=== PATIENT | male | born 1945 | race Caucasian/White ===

== ENCOUNTER 2016-05-13 20:08 | Inpatient (IN) | payer MEDICARE, MEDICAID ==
[2016-05-13] MEDS ORDERED: Sodium Chloride 0.9% 1,000 ML IV ONE (20:54)
--- NOTE | 2016-05-13 21:06 | ED Physician Chart ---
Chief Complaint/HPI - Patient Information Date Seen:: 05/13/16 Time Seen:: 20:45 Chief Complaint:: Abnormal BUN/creat = 65/1.8 History of Present Illness:: Pt. sent in by Dr. Jayesh wilkinson for dehydration with abnl. labs. BUN/creat = 65/1.8. Similar values on 2015, BUN/creat = 64/1.7 Allergies:: Allergies Allergy/AdvReac Type Severity Reaction Status Date / Time No Known Allergies Allergy Verified 01/28/16 15:45 Vitals:: Vital Signs - 8 hr 05/13/16 20:15 Temp 97.6 F HR 84 RR 18 BP 119/70 O2 Sat % 95 Historian:: EMS, Medical Records Review of Systems - Review of Systems General/Constitutional: No fever, No chills Skin: Skin lesions Head: No headache Eyes: No loss of vision, No pain Neck: No neck pain Cardio Vascular: No chest pain, No palpitations Pulmonary: No SOB, No cough GI: No nausea, No vomiting, No diarrhea G/U: No dysuria Psychiatric: No anxiety Neurological: No syncope, No focal symptoms, No vertigo Past Medical History - Past Medical History Past Medical History: HTN, DM, Asthma/COPD, Dementia, Other ("AKF" apparently, "Acute Kidney Failure") Family History: None Social History: Non Smoker, No Alcohol Surgical History: None Psychiatricy History: Dementia Family Medical History - Family Member Mother History Unknown: Yes Ethnicity: Physical Exam - Physical Examination General/Constitutional: Awake, Well-developed, well-nourished, No distress Head: Atraumatic Eyes: Lids, conjuctiva normal, PERRL, EOMI Skin: No rash ENMT: External ears, nose nl, TM canals nl, Lips, teeth, gums nl, Oropharynx nl Neck: Nontender, Full ROM w/o pain Respiratory: Nl effort/Exclusion, Clear to Auscultation, No Wheeze/Rhonchi/Rales Cardio Vascular: RRR, No murmur, gallop, rubs GI: No tenderness/rebounding/guarding : No CVA tenderness Extremities: No tenderness or effusion, Full ROM Neuro/Psych: Normal motor strength, No focal deficits Labs/Radiology/EKG Results - Lab Results Results: CXR borderline cardiomeg. ? infiltrate L base, L CPA EKG: NSR at 80 with L axis and LVH. Old inf. Q's. WBC 6.9, H/H = 11..2/33.1 BUN/creat 70/1.9, Gluc. 185. CPK nl EtOH nlAmmonia nl PT and PTT normal ED Septic Shock - . Is Septic Shock (SBP<90, OR Lactate>4 mmol\\L) present?: No - <6hrs of presentation: Vital Signs: Vital Signs - 8 hr 05/13/16 20:15 Temp 97.6 F HR 84 RR 18 BP 119/70 O2 Sat % 95 Reassessment (Disposition) - Reassessment Reassessment Condition:: Improved - Diagnosis Diagnosis:: Dx: Acute dehydration and renal failure 2. Possible LLL pneumonia. - Patient Disposition Accepting Physician:: Dr. Mcconnell Time Called:: 2214 Time Responded:: 22:34 Discussion with Medical Provider:: Discussed with Dr. Mcconnell. He is admitting and giving orders. Condition at Disposition:: Improved ED Discharge Plan - Patient Disposition Admit/Discharge/Transfer: Acute Care w/in this hosp Condition at Disposition: Guarded
[2016-05-13] MEDS ORDERED: cefTRIAXone 1 GM in Sodium Chloride 0.9% 50 ML IV ONE (21:08)
[2016-05-13 21:24] LABS: % BASOPHILS 0.7 % (0.0-2.0); % EOSINOPHILS 3.1 % (0.0-5.0); % LYMPHOCYTES 21.2 % (20.0-50.0); % MONOCYTES 7.5 % (2.0-10.0); % NEUTROPHILS 67.5 % (40.0-80.0); MEAN CELL VOLUME 96.8 fl (80-99); MEAN CORPUSCULAR HEMOGLOBIN 32.7 pg (27.0-31.0); MEAN CORPUSCULAR HGB CONC 33.8 pg (28.0-36.0); MEAN PLATELET VOLUME 10.5 fl; NEUTROPHILE ABSOLUTE 4.7 Th/cmm (1.8-8.0); RED BLOOD COUNT 3.42 Mil/cmm (3.80-5.80); RED CELL DISTRIBUTION WIDTH 15.3 % (11.5-20.0); WHITE BLOOD COUNT 6.9 Th/cmm (4.8-10.8)
[2016-05-13 21:31] LABS: HEMATOCRIT 33.1 % (39.0-49.0); HEMOGLOBIN 11.2 gm/dL (12.6-17.4)
[2016-05-13 21:32] LABS: PLATELET COUNT 106 Th/cmm (150-400)
[2016-05-13 21:34] LABS: INR 1.05 (0.5-1.4); PROTHROMBIN TIME (TEST) 10.4 SECONDS (9.5-11.5)
[2016-05-13 21:36] LABS: ALB/GLOB RATIO 0.7 (1.0-1.8); ALKALINE PHOSPHATASE 84 U/L (34-104); BILIRUBIN,TOTAL 0.3 mg/dL (0.3-1.0); BUN - UREA NITROGEN 70 mg/dL (7-25); BUN/CREATININE RATIO 36.8; CALCIUM SERUM 9.6 mg/dL (8.6-10.3); CARBON DIOXIDE 25.8 mEq/L (21.0-31.0); CHLORIDE 114 mEq/L (98-107); CREATININE - SERUM 1.9 mg/dL (0.7-1.3); GLUCOSE 185 mg/dL (70-105); POTASSIUM SERUM 4.8 mEq/L (3.5-5.1); SGOT 30 U/L (13-39); SGPT/ALT 27 U/L (7-52); SODIUM SERUM 144 mEq/L (136-145)
[2016-05-13 22:07] LABS: CREATINE KINASE MB 0.6 ng/mL (0.6-6.3)
[2016-05-13] MEDS ORDERED: Fleet Enema 135 mL RC PRN (23:18)
[2016-05-13] MEDS ORDERED: Magnesium Hydroxide (MOM) 30 mL UDC GT PRN (23:18)
[2016-05-13] MEDS ORDERED: DARBEPOETIN ALFA IN POLYSORBAT 25 MCG SQ SCH (23:30)
[2016-05-13 23:54] LABS: URINE BILIRUBIN NEGATIVE (NEGATIVE); URINE BLOOD NEGATIVE (NEGATIVE); URINE COLOR YELLOW; URINE GLUCOSE (UA) NEGATIVE (NEGATIVE); URINE KETONE NEGATIVE (NEGATIVE); URINE PH 5.5; URINE PROTEIN 100 mg/dL (NEGATIVE)
[2016-05-13 23:55] LABS: URINE UROBILINOGEN 0.2 E.U./dL (0.2 - 1.0)
[2016-05-13 23:57] LABS: URINE BACTERIA MODERATE /hpf (NONE SEEN); URINE EPITHELIAL CELLS MODERATE /lpf (FEW)
[2016-05-13 23:58] LABS: AMPHETAMINE URINE NEGATIVE (NEGATIVE); BARBITURATES URINE NEGATIVE (NEGATIVE)
--- NOTE | 2016-05-13 23:59 | Admit Criteria Form ---
Admit Criteria Forms - Admit Criteria Diagnosis: DEHYDRATION Clinical Indications for Admission to Inpatient Care (Place 'X' for any and all applicable criteria): Admission is indicated for ANY ONE of the following (1)(2)(3)(4)(5): [ X]I. Inpatient admission required rather than observation care (see Dehydration: Observation Care guideline as appropriate) because of ANY ONE of the following: [ ]a) Vomiting that is severe or persistent [ ]b) Severe electrolyte abnormalities requiring inpatient care [ ]c) Hemodynamic instability [ ]d) IV fluid to replace significant ongoing losses (greater than 3 L/m2 per day (10) (11) [ ]e) Parenteral nutrition regimen that must be implemented on inpatient basis [X ]f) Other condition,treatment or monitoring requiring inpatient admission [ ]II. Serious cause for dehydration requiring acute hospitalization (eg, bowel obstruction, increased intracranial pressure, infectious cause) Extended stay beyond goal length of stay may be needed for(1)(3 )(4)(17): [ ]a) Chronic severe dehydration [ ]b) Persistent vital sign changes, severe electrolyte imbalance, or diagnosed cause of dehydration that requires continued hospitalization (eg, bowel obstruction, increased intracranial pressure) [ ]c) Older patients (65 years or older) [ ]d) Severe comorbid illness (eg, renal failure, heart failure, poorly controlled diabetes) The original [employer] content created by [employer] has been revised. The portions of the content which have been revised are identified through the use of italic text or in bold, and [facility] has neither reviewed nor approved the modified material. All other unmodified content is copyright [email or web address]. Please see references footnoted in the original [email or web address] edition 2016 Admit Criteria Met?: Yes
[2016-05-14] MEDS: D5-0.45NS 1,000 ML IV SCH ×3 (00:57→15:09)
[2016-05-14] MEDS: Lactulose 10 Gm/15 mL 30mL UDC GT SCH ×2 (06:29→13:30)
[2016-05-14] MEDS: Pantoprazole 40 mg/Packet GT SCH (06:30)
[2016-05-14] MEDS: INSULIN ASPART SLIDING SCALE 100 UNITS/ML UNIT SUBQ SCH ×4 (06:36→21:50)
[2016-05-14 07:35] LABS: ALB/GLOB RATIO 0.7 (1.0-1.8); ANION GAP 11.4 (7.0-16.0); BUN/CREATININE RATIO 35.9; CALCIUM SERUM 9.4 mg/dL (8.6-10.3); CARBON DIOXIDE 23.3 mEq/L (21.0-31.0); CREATININE - SERUM 1.7 mg/dL (0.7-1.3); POTASSIUM SERUM 4.7 mEq/L (3.5-5.1)
[2016-05-14 07:36] LABS: BILIRUBIN,TOTAL 0.3 mg/dL (0.3-1.0)
[2016-05-14] MEDS: Ferrous Sulfate 300 MG/5 ML UDC GT SCH (08:28)
[2016-05-14] MEDS: Levetiracetam 500 mg/5mL 5mL UDC GT SCH ×2 (08:28→21:38)
[2016-05-14] MEDS: Multivitamin w/ Minerals 15 mL UDC GT SCH (08:28)
[2016-05-14] MEDS: Insulin Detemir 100 units/mL 10mL Vial SUBQ SCH ×2 (09:00→22:32)
[2016-05-14 09:06] LABS: % BASOPHILS 0.1 % (0.0-2.0); % EOSINOPHILS 5.2 % (0.0-5.0); % LYMPHOCYTES 18.9 % (20.0-50.0); % MONOCYTES 7.6 % (2.0-10.0); % NEUTROPHILS 68.2 % (40.0-80.0); HEMATOCRIT 35.6 % (39.0-49.0); HEMOGLOBIN 11.7 gm/dL (12.6-17.4); MEAN CELL VOLUME 97.8 fl (80-99); MEAN CORPUSCULAR HGB CONC 32.7 pg (28.0-36.0); MEAN PLATELET VOLUME 10.5 fl; NEUTROPHILE ABSOLUTE 3.5 Th/cmm (1.8-8.0); PLATELET COUNT 105 Th/cmm (150-400); RED BLOOD COUNT 3.64 Mil/cmm (3.80-5.80); RED CELL DISTRIBUTION WIDTH 15.3 % (11.5-20.0)
[2016-05-14 09:17] LABS: WHITE BLOOD COUNT 5.2 Th/cmm (4.8-10.8)
--- NOTE | 2016-05-14 11:28 | Diagnostic Imaging Report ---
Portable chest x-ray History: Cough Allowing for portable technique the heart size is normal. There is accentuation of the interstitial markings in the left lower lobe probably related to poor inspiration. Subtle infiltrate is difficult to exclude. Clinical correlation is needed. IMPRESSION: 1. Accentuation of interstitial markings within the left lower lobe that may be related to poor inspiration. Early infiltrate is difficult to exclude. Clinical correlation is needed.
[2016-05-15] MEDS: D5-0.45NS 1,000 ML IV SCH ×2 (01:22→17:20)
[2016-05-15] MEDS: Lactulose 10 Gm/15 mL 30mL UDC GT SCH ×4 (01:25→22:41)
--- NOTE | 2016-05-15 05:23 | History & Physical ---
I was called on medical records to do the H and P today. CHIEF COMPLAINT: Abnormal labs reveal BUN of 65 and creatinine of 1.8. HISTORY OF PRESENT ILLNESS: The patient is a 70-year-old male with past medical history of diabetes mellitus type 2 and hypertension, was sent by Dr. Mcconnell, the primary care physician, for abnormal labs including BUN of 65 and creatinine of 1.8. On initial evaluation, the patient's vitals were stable. The patient was admitted for further evaluation and management, the reason the consultation was called. PAST MEDICAL HISTORY: Diabetes mellitus type 2, hypertension, anemia of chronic disease, peripheral vascular disease, BPH, and cachexia. ALLERGIES: NKDA. MEDICATIONS: See medication reconciliation sheet. PAST SURGICAL HISTORY: PEG placement. SOCIAL HISTORY: The patient lives at nursing facility. FAMILY HISTORY: Unknown. REVIEW OF SYSTEMS: GENERAL: The patient has no fever and no chills. He has generalized weakness. HEENT: No diplopia, no photophobia, and no sore throat. RESPIRATORY: No cough and no shortness of breath. CARDIOVASCULAR: No chest pain and no palpitation. GASTROINTESTINAL: No nausea, no vomiting, no diarrhea, and no constipation. GENITOURINARY: No dysuria. NEUROLOGICAL: No headache, no dizziness, and no focal weakness. PHYSICAL EXAMINATION: VITAL SIGNS: Current vital signs show temperature is 97.8, pulse 80, respirations 18, and blood pressure 122/86. GENERAL: The patient is comfortable lying in the bed, not in acute distress. HEENT: Head is normocephalic and atraumatic. Oral cavity moist, pink tongue. NECK: Supple. No JVD. No carotid bruit. Trachea in midline. CHEST: Bilateral vesicular sound, decreased breath sound. HEART: S1 and S2 within normal limits. Regular rhythm. No murmur and no gallop. ABDOMEN: Soft, nontender, and nondistended. Bowel sounds present. EXTREMITIES: No cyanosis, no clubbing, and no edema. Discoloration of both lower legs, foot area. NEUROLOGIC: Alert and awake, confused. LABORATORY DATA: Current lab shows WBC count is 5200, hemoglobin 11.7, hematocrit is 35.6, platelets are 105,000, and neutrophil is 68.2%. Sodium is 144, potassium 4.7, chloride 114, bicarbonate is 23.3, BUN is 61, creatinine 1.7, and glucose is 241. IMPRESSION: 1. Acute kidney injury on chronic kidney disease. 2. Urinary tract infection with candiduria. 3. Bilateral pneumonia, health care facility associated pneumonia, as the patient has chest x-ray showing bilaterally infiltrates. 4. Diabetes mellitus type 2. 5. Hypertension. 6. Peripheral vascular disease. 7. Anemia of chronic disease. 8. Benign prostatic hypertrophy. 9. Cachexia. Requiring continuing Rocephin and Diflucan. Continue IV fluid support. Continue same medications from the nursing facility. Dr. Mcconnell will takeover the case tomorrow. Discuss with Dr. Mcconnell and medical records. JOB# [id number] CHERY
--- NOTE | 2016-05-15 05:56 | Consultation ---
ATTENDING PHYSICIAN: Abhi Mcconnell MD. REASON FOR CONSULTATION: Worsening kidney function, electrolyte imbalance and fluid management. HISTORY OF PRESENT ILLNESS: This is a 70-year-old male with past medical history of chronic kidney disease who was brought to the Emergency Room because of persistently lab abnormalities. Two weeks prior to admission, the patient had labs drawn, which revealed BUN/creatinine of 64/1.74. He continued to receive his usual G-tube feedings. Few hours prior to admission, F staff reported abnormal labs. He was then brought to the Emergency Room. His BUN/creatinine were 70/1.9. Chest x-ray showed possible early left lower lobe infiltrate. White count was 6.9. He denied any history of nausea and vomiting as well as diarrhea. He admitted to [facility]. PAST MEDICAL HISTORY: 1. Chronic kidney disease. 2. Type 2 diabetes mellitus. 3. Essential hypertension. 4. Peptic ulcer disease. 5. Anemia of chronic disease. 6. BPH. PAST SURGICAL HISTORY: Status post PEG placement. CURRENT MEDICATIONS: He is currently on Aranesp, acetaminophen, ascorbic acid, bisacodyl, doxazosin, ferrous sulfate, Neurontin, detemir, lactulose, levetiracetam, magnesium hydroxide, ____, sodium chloride, pantoprazole, ceftriaxone and sennosides. ALLERGIES: No known drug allergies. SOCIAL AND FAMILY HISTORY: I was not able to obtain directly from the patient because he remains nonverbal at the present time. REVIEW OF SYSTEMS: Again, I was not able to decipher directly from the patient. As per transfer notes. The patient has a gastrostomy tube feeding, no fever and no chills. HEENT: No mention of any headaches nor dizziness. CARDIORESPIRATORY: No shortness of breath, chest pain, palpitations, diaphoresis or cough. GASTROINTESTINAL: There was no nausea and vomiting, abdominal pain or cramping, hematemesis, melena or hematochezia and no diarrhea. ENDOCRINE: History of diabetes. No thyroid abnormalities. No dyslipidemia. MUSCULOSKELETAL: Multiple joint arthralgias. GENITOURINARY: History of chronic kidney disease with acute kidney injury. Possible bacteria/yeast complicated UTI. HEMATOLOGIC: He has a history of anemia and currently on erythropoiesis-stimulating agents. NEUROPSYCHIATRIC: No syncopal episode nor seizure activity. PHYSICAL EXAMINATION: GENERAL: The patient is arousable. He is not in any form of distress. VITAL SIGNS: His blood pressure is 135/80, pulse is 99 and temperature 98.6 degrees. SKIN: Poor turgor, warm. No rash and no jaundice appreciated. HEENT: Head normocephalic and atraumatic. Eyes: Extraocular muscles intact. Pupils equal, round and reactive to light and accommodates, anicteric sclerae, pink conjunctivae. Nose: Midline nasal septum. Mouth: Dry mucosa with adequate dentition. NECK: Supple. No adenopathy, no thyromegaly and no bruits. Trachea palpated in the midline. CHEST AND CVS: S1 and S2. No rub, murmur nor gallop appreciated. Point of maximal impulse fifth intercostal space, left midclavicular line. No abdominal or femoral bruits appreciated. LUNGS: Equal expansion. No use of accessory muscles. No supraclavicular retractions, decreased breath sounds, clear to auscultation without any wheeze. ABDOMEN: Mildly globular, soft. Positive for bowel sounds. No bruits either diastolic or systolic. RECTAL: Lax sphincter tone. GENITOURINARY: Normal appearing male genitalia. MUSCULOSKELETAL: No effusions present in his joints, but unable to assess his range of motion. EXTREMITIES: No evidence of edema, cyanosis nor clubbing with palpable femoral, popliteal and dorsalis pedis pulses. NEUROLOGIC: The patient is arousable; however, unable to continue with my neuro exam due to his depressed mental status. He is able to move his extremities voluntarily. LABORATORY DATA: Sodium 144, potassium 4.7, chloride 111, bicarbonate 23, BUN 61, creatinine 1.7 and glucose 241. White count 5.2, hemoglobin 11.7, hematocrit 35.6, polys 68.2% and platelets 105. Troponin 0.01, calcium 9.4. BNP 62, albumin 3.4. Urinalysis revealed yeast/bacteria, wbc's of 10-25 with rbc's of 2-5. IMPRESSION: 1. Acute kidney injury on chronic kidney disease MDRD GFR 51 mL per minute, stage 3. The patient's chronic kidney disease is secondary to longstanding history of diabetes ____ to diabetic neuropathy. He may have underlying hypertensive nephrosclerosis due to his history of hypertension. 2. Acute kidney injury is likely due to prerenal azotemia. He is currently on the feeding as well as water flushes, but this may not be enough to replenish his sensible and insensible fluid losses. Physical examination showed poor skin turgor and dry oral mucosa. These are all suggestive of underlying dehydration, which could give rise to a decrease ____ circulating volume. His prerenal azotemia progressed to acute tubular injury. He also has ongoing bacterial/yeast urine infection which may develop into acute interstitial nephritis. 3. New left lower lobe healthcare-acquired pneumonia. 4. Bacterial/yeast complicated UTI. 5. Type 2 diabetes mellitus with CKD. 6. Essential hypertension with CKD. 7. Peptic ulcer disease. 8. Anemia of chronic kidney disease. 9. BPH. 10. Malnutrition. 11. Functional quadriplegia. PLAN: 1. Agree with IV fluids. 2. Follow up urine C and S. 3. Blood culture x 2. 4. Renal ultrasound. 5. Urinary sodium, eosinophils and creatinine. 6. Urine microalbumin to creatinine ratio. 7. Follow up electrolytes and repeat chest x-ray. 8. Discontinue Epogen because hemoglobin remains stable. 9. Start patient on Diflucan. Thank you Dr. Mcconnell for this consult. I will follow the patient closely with you. JOB# [id number]
[2016-05-15] MEDS: Pantoprazole 40 mg/Packet GT SCH (06:06)
[2016-05-15] MEDS: INSULIN ASPART SLIDING SCALE 100 UNITS/ML UNIT SUBQ SCH ×4 (06:41→22:35)
[2016-05-15 07:07] LABS: % BASOPHILS 0.1 % (0.0-2.0); % EOSINOPHILS 7.3 % (0.0-5.0); % LYMPHOCYTES 33.4 % (20.0-50.0); % MONOCYTES 7.8 % (2.0-10.0); % NEUTROPHILS 51.4 % (40.0-80.0); HEMATOCRIT 32.2 % (39.0-49.0); HEMOGLOBIN 11.1 gm/dL (12.6-17.4); MEAN CELL VOLUME 96.2 fl (80-99); MEAN CORPUSCULAR HGB CONC 34.3 pg (28.0-36.0); MEAN PLATELET VOLUME 9.9 fl; NEUTROPHILE ABSOLUTE 2.9 Th/cmm (1.8-8.0); PLATELET COUNT 98 Th/cmm (150-400); RED BLOOD COUNT 3.35 Mil/cmm (3.80-5.80); RED CELL DISTRIBUTION WIDTH 15.2 % (11.5-20.0); WHITE BLOOD COUNT 5.6 Th/cmm (4.8-10.8)
[2016-05-15 07:32] LABS: ANION GAP 8.7 (7.0-16.0); BUN - UREA NITROGEN 39 mg/dL (7-25); CALCIUM SERUM 8.9 mg/dL (8.6-10.3); CARBON DIOXIDE 22.6 mEq/L (21.0-31.0); CHLORIDE 116 mEq/L (98-107); CREATININE - SERUM 1.3 mg/dL (0.7-1.3); GLUCOSE 165 mg/dL (70-105); MAGNESIUM 2.3 mg/dL (1.9-2.7); PHOSPHOROUS 3.7 mg/dL (2.5-5.0); POTASSIUM SERUM 4.3 mEq/L (3.5-5.1); SODIUM SERUM 143 mEq/L (136-145); URIC ACID 12.2 mg/dL (4.4-7.6)
[2016-05-15] MEDS ORDERED: Epoetin Alfa 20000 Units/mL Vial SUBQ SCH (09:00)
[2016-05-15] MEDS: Levetiracetam 500 mg/5mL 5mL UDC GT SCH ×2 (09:44→22:32)
[2016-05-15] MEDS: Ferrous Sulfate 300 MG/5 ML UDC GT SCH (09:44)
[2016-05-15] MEDS: Insulin Detemir 100 units/mL 10mL Vial SUBQ SCH ×2 (09:45→22:38)
[2016-05-15] MEDS: Multivitamin w/ Minerals 15 mL UDC GT SCH (10:00)
[2016-05-15 12:13] LABS: MICROALBUMIN RANDOM RUINE 566.8 ug/mL (Not Estab.)
--- NOTE | 2016-05-15 13:24 | General Progress Note ---
Subjective - Review of Systems Service Date: 05/15/16 Subjective: more awake, comfortable Objective - Results Result Diagrams: 05/15/16 05:55 05/15/16 05:55 Recent Labs: Laboratory Last Values WBC 5.6 Th/cmm (4.8-10.8) 05/15/16 05:55 RBC 3.35 Mil/cmm (3.80-5.80) L 05/15/16 05:55 Hgb 11.1 gm/dL (12.6-17.4) L 05/15/16 05:55 Hct 32.2 % (39.0-49.0) L 05/15/16 05:55 MCV 96.2 fl (80-99) 05/15/16 05:55 MCH 33.0 pg (27.0-31.0) H 05/15/16 05:55 MCHC Differential 34.3 pg (28.0-36.0) 05/15/16 05:55 RDW 15.2 % (11.5-20.0) 05/15/16 05:55 Plt Count 98 Th/cmm (150-400) L 05/15/16 05:55 MPV 9.9 fl 05/15/16 05:55 Neutrophils % 51.4 % (40.0-80.0) 05/15/16 05:55 Lymphocytes % 33.4 % (20.0-50.0) 05/15/16 05:55 Monocytes % 7.8 % (2.0-10.0) 05/15/16 05:55 Eosinophils % 7.3 % (0.0-5.0) H 05/15/16 05:55 Basophils % 0.1 % (0.0-2.0) 05/15/16 05:55 PT 10.4 SECONDS (9.5-11.5) 05/13/16 21:10 INR 1.05 (0.5-1.4) 05/13/16 21:10 PTT (Actin FS) 26.1 SECONDS (26.0-38.0) 05/13/16 21:10 Sodium 143 mEq/L (136-145) 05/15/16 05:55 Potassium 4.3 mEq/L (3.5-5.1) 05/15/16 05:55 Chloride 116 mEq/L (98-107) H 05/15/16 05:55 Carbon Dioxide 22.6 mEq/L (21.0-31.0) 05/15/16 05:55 Anion Gap 8.7 (7.0-16.0) 05/15/16 05:55 BUN 39 mg/dL (7-25) H 05/15/16 05:55 Creatinine 1.3 mg/dL (0.7-1.3) 05/15/16 05:55 Est GFR ( Amer) > 60.0 ml/min 05/15/16 05:55 Est GFR (Non-Af Amer) 58.2 ml/min 05/15/16 05:55 BUN/Creatinine Ratio 30.0 05/15/16 05:55 Glucose 165 mg/dL (70-105) H 05/15/16 05:55 POC Glucose 136 MG/DL (70 - 105) H 05/15/16 12:30 Hemoglobin A1c % 5.8 % (4.0-6.0) 05/13/16 20:10 Uric Acid 12.2 mg/dL (4.4-7.6) H 05/15/16 05:55 Calcium 8.9 mg/dL (8.6-10.3) 05/15/16 05:55 Phosphorus 3.7 mg/dL (2.5-5.0) 05/15/16 05:55 Magnesium 2.3 mg/dL (1.9-2.7) 05/15/16 05:55 Total Bilirubin 0.3 mg/dL (0.3-1.0) 05/14/16 06:40 AST 30 U/L (13-39) 05/14/16 06:40 ALT 25 U/L (7-52) 05/14/16 06:40 Alkaline Phosphatase 76 U/L (34-104) 05/14/16 06:40 Ammonia 50 umol/L (16-53) 05/13/16 21:10 Creatine Kinase 31 U/L (30-223) 05/13/16 21:10 CK-MB (CK-2) 0.6 ng/mL (0.6-6.3) 05/13/16 21:10 Troponin I 0.03 ng/mL (0.01-0.05) 05/13/16 21:10 B-Natriuretic Peptide 62.0 pg/mL (5.0-100.0) 05/13/16 21:10 Total Protein 8.0 gm/dL (6.0-8.3) 05/14/16 06:40 Albumin 3.4 gm/dL (4.2-5.5) L 05/14/16 06:40 Globulin 4.6 gm/dL 05/14/16 06:40 Albumin/Globulin Ratio 0.7 (1.0-1.8) L 05/14/16 06:40 Urine Source CLEAN C 05/13/16 21:30 Urine Color YELLOW 05/13/16 21:30 Urine Clarity HAZY (CLEAR) 05/13/16 21:30 Urine pH 5.5 05/13/16 21:30 Ur Specific [place] 1.015 (1.005-1.030) 05/13/16 21:30 Urine Protein 100 mg/dL (NEGATIVE) H 05/13/16 21:30 Urine Glucose (UA) NEGATIVE mg/dL (NEGATIVE) 05/13/16 21:30 Urine Ketones NEGATIVE mg/dL (NEGATIVE) 05/13/16 21:30 Urine Blood NEGATIVE (NEGATIVE) 05/13/16 21:30 Urine Nitrate NEGATIVE (NEGATIVE) 05/13/16 21:30 Urine Bilirubin NEGATIVE (NEGATIVE) 05/13/16 21:30 Urine Urobilinogen 0.2 E.U./dL (0.2 - 1.0) 05/13/16 21:30 Ur Leukocyte Esterase TRACE (NEGATIVE) H 05/13/16 21:30 Urine RBC 2-5 /hpf (0-5) H 05/13/16 21:30 Urine WBC 10-25 /hpf (0-5) H 05/13/16 21:30 Ur Epithelial Cells MODERATE /lpf (FEW) 05/13/16 21:30 Urine Bacteria MODERATE /hpf (NONE SEEN) 05/13/16 21:30 Urine Yeast MODERATE /hpf (NONE SEEN) H 05/13/16 21:30 Ur Random Sodium 67 mmol/L 05/15/16 03:13 Urine Creatinine 63.0 mg/dl (39.0-259.0) 05/15/16 03:13 Urine Microalbumin 566.8 ug/mL (Not Estab.) 05/13/16 21:30 Microalb/Creat Ratio 613.4 mg/g creat (0.0-30.0) H 05/13/16 21:30 Urine Opiates Screen NEGATIVE (NEGATIVE) 05/13/16 21:30 Ur Barbiturates Screen NEGATIVE (NEGATIVE) 05/13/16 21:30 Ur Phencyclidine Scrn NEGATIVE (NEGATIVE) 05/13/16 21:30 Amphetamines Screen NEGATIVE (NEGATIVE) 05/13/16 21:30 U Methamphetamines Scrn NEGATIVE (NEGATIVE) 05/13/16 21:30 U Benzodiazepines Scrn NEGATIVE (NEGATIVE) 05/13/16 21:30 U Cocaine Metab Screen NEGATIVE (NEGATIVE) 05/13/16 21:30 U Cannabinoids Screen NEGATIVE (NEGATIVE) 05/13/16 21:30 Ethyl Alcohol < 10 mg/dL (0-10) 05/13/16 21:10 - Physical Exam Vitals and I&O: Vital Signs Temp 98.3 F 05/15/16 04:00 Pulse 75 05/15/16 04:00 Resp 18 05/15/16 04:00 BP 119/50 05/15/16 04:00 Pulse Ox 99 05/15/16 04:00 Intake & Output 05/14/16 05/15/16 05/15/16 18:59 06:59 18:59 Intake Total 3197.5 1440 Output Total 350 Balance 2847.5 1440 Intake: Intake, IV Amount 1952.5 1000 D5-0.45NS 1,000 ml @ 150 1952.5 1000 mls/hr IV .Q6H40M [facility] Rx# :[id number] Oral 300 Tube Feeding 715 440 Other 230 Output: Urine 350 Other: # Voids 5 4 # Bowel Movements 3 1 Stool Characteristics Soft Active Medications: Current Medications Acetaminophen (Tylenol 650mg/20.3ml Suspension) 500 mg GT Q4HR PRN PRN Reason: Pain (Severe) Stop: 07/12/16 23:17 Ascorbic Acid (Vitamin C) 500 mg GT DAILY [facility] Stop: 07/13/16 08:59 Last Admin: 05/15/16 09:43 Dose: 500 mg Bisacodyl (Dulcolax 10 Mg Supp) 10 mg RC DAILY PRN PRN Reason: Constipation Stop: 07/12/16 23:17 Doxazosin Mesylate (Cardura) 5 mg GT DAILY [facility] Stop: 07/13/16 08:59 Last Admin: 05/15/16 09:43 Dose: 5 mg Ferrous Sulfate (Iron) 300 mg GT DAILY [facility] Stop: 07/13/16 08:59 Last Admin: 05/15/16 09:44 Dose: 300 mg Fluconazole (Diflucan) 100 mg PO DAILY [facility] Stop: 07/13/16 17:59 Last Admin: 05/15/16 09:44 Dose: 100 mg Gabapentin (Neurontin) 100 mg GT HS [facility] Stop: 07/13/16 20:59 Last Admin: 05/14/16 21:38 Dose: 100 mg Heparin Sodium (Porcine) (Heparin) 5,000 units SUBQ Q12HR [facility] Stop: 07/13/16 08:59 Last Admin: 05/15/16 09:44 Dose: 5,000 units Dextrose/Sodium Chloride (D5-0.45ns) 1,000 mls @ 75 mls/hr IV .[id number] [facility] Stop: 07/12/16 23:14 Insulin Aspart (Novolog Insulin Sliding Scale) 0 units SUBQ ACHS [facility] PRN Reason: Protocol Stop: 07/13/16 07:29 Last Admin: 05/15/16 12:31 Dose: Not Given Insulin Detemir (Levemir Insulin) 10 units SUBQ HS [facility] PRN Reason: Protocol Stop: 07/13/16 20:59 Last Admin: 05/14/16 22:32 Dose: 10 units Insulin Detemir (Levemir Insulin) 15 units SUBQ QAM [facility] PRN Reason: Protocol Stop: 07/13/16 08:59 Last Admin: 05/15/16 09:45 Dose: 15 unit Lactulose (Cephulac) 30 gm GT Q8HR [facility] Stop: 07/13/16 04:59 Last Admin: 05/15/16 05:30 Dose: 30 gm Levetiracetam (Keppra) 500 mg GT Q12HR [facility] Stop: 07/13/16 08:59 Last Admin: 05/15/16 09:44 Dose: 500 mg Magnesium Hydroxide (Milk Of Magnesia) 30 ml GT HS PRN PRN Reason: Constipation Stop: 07/12/16 23:17 Miscellaneous (Vancomycin Iv Per Pharmacy) 1 ea MC PRN PRN PRN Reason: PROTOCOL Stop: 07/14/16 13:17 Multivitamins/Minerals (Theragran M) 5 ml GT DAILY [facility] Stop: 07/13/16 08:59 Last Admin: 05/15/16 10:00 Dose: 5 ml Mupirocin (Bactroban Oint) 1 appl NS BID [facility] Stop: 07/13/16 08:59 Last Admin: 05/15/16 09:43 Dose: 1 appl Pantoprazole Sodium (Protonix) 40 mg GT QDAC [facility] Stop: 07/13/16 06:29 Last Admin: 05/15/16 06:06 Dose: 40 mg Senna (Senna) 17.2 mg GT HS [facility] Stop: 07/13/16 20:59 Last Admin: 05/14/16 21:35 Dose: 17.2 mg Sodium Phosphate (Fleet Enema) 135 ml RC Q2D PRN PRN Reason: Constipation Stop: 07/12/16 23:17 General: Alert, Cooperative, No acute distress HEENT: Atraumatic, EOMI, Mucous membr. moist/pink Neck: Supple, +2 carotid pulse wo bruit Cardiovascular: Regular rate, Normal S1, Normal S2 Lungs: Other (rhonchi) Abdomen: Bowel sounds, Soft Extremities: Other (deformed toes, fingers), no Edema Neurological: Normal tone, Sensation intact Skin: no Rash - Procedures Procedures: Procedures Procedure Code Date CHANGE FEEDING DEVICE IN UP INTEST TRACT, CURER FOAM RUBBER APPROACH [id number] 03/25/16 EXCISION OF DUODENUM, ENDO, DIAGN [id number] 03/25/16 EXCISION OF ESOPHAGOGASTRIC JUNCTION, ENDO, DIAGN [id number] 03/25/16 EXCISION OF STOMACH, PYLORUS, ENDO, DIAGN [id number] 03/25/16 EXCISION OF TRANSVERSE COLON, ENDO, DIAGN [id number] 03/25/16 EXTIRPATION OF MATTER FROM COMMON BILE DUCT, ENDO [id number] 01/28/16 FLUOROSCOPY OF BILE DUCTS USING LOW OSMOLAR CONTRAST [id number] 01/28/16 REMOVAL OF INTRALUMINAL DEVICE FROM HEPATOBILIARY DUCT, ENDO [id number] 01/28/16 Assessment/Plan - Problem List Patient Problems: All Active Problems Abdominal pain (Acute) R10.9 Acute hypernatremia (Acute) E87.0 Acute hypernatremia (Acute) E87.0 Acute renal disease (Acute) N28.9 Anemia (Acute) D64.9 Diabetes (Acute) E11.9 GERD (gastroesophageal reflux disease) (Acute) K21.9 Gout (Acute) M10.9 History of DVT (deep vein thrombosis) (Acute) Z86.718 Hyperkalemia (Acute) E87.5 Hypernatremia (Acute) E87.0 Malnutrition (Acute) E46 Metabolic encephalopathy (Acute) G93.41 Pressure ulcer of sacral region (Acute) - Assessment Assessment: BAN on CKD Left lower lobe HAP bact/yeast Cx UTI GPC septicemia type 2 DM Ess htn PUD anemia of ckd BPH malnutrition Functional quadriplegia - Plan Plan: kidney fnc gradually improving FENa 0.97% suggestive of pre renal component decrease ivf start vanco for gpc septicemia, continue diflucan for yeast Cx uti f/u electrolytes
--- NOTE | 2016-05-15 13:27 | General Progress Note ---
Subjective - Review of Systems Service Date: 05/15/16 Subjective: c/o no specific symtoms treated for sepsis prerenal azatemia Objective - Results Result Diagrams: 05/16/16 06:15 05/16/16 06:15 Recent Labs: Laboratory Last Values WBC 5.6 Th/cmm (4.8-10.8) 05/15/16 05:55 RBC 3.35 Mil/cmm (3.80-5.80) L 05/15/16 05:55 Hgb 11.1 gm/dL (12.6-17.4) L 05/15/16 05:55 Hct 32.2 % (39.0-49.0) L 05/15/16 05:55 MCV 96.2 fl (80-99) 05/15/16 05:55 MCH 33.0 pg (27.0-31.0) H 05/15/16 05:55 MCHC Differential 34.3 pg (28.0-36.0) 05/15/16 05:55 RDW 15.2 % (11.5-20.0) 05/15/16 05:55 Plt Count 98 Th/cmm (150-400) L 05/15/16 05:55 MPV 9.9 fl 05/15/16 05:55 Neutrophils % 51.4 % (40.0-80.0) 05/15/16 05:55 Lymphocytes % 33.4 % (20.0-50.0) 05/15/16 05:55 Monocytes % 7.8 % (2.0-10.0) 05/15/16 05:55 Eosinophils % 7.3 % (0.0-5.0) H 05/15/16 05:55 Basophils % 0.1 % (0.0-2.0) 05/15/16 05:55 PT 10.4 SECONDS (9.5-11.5) 05/13/16 21:10 INR 1.05 (0.5-1.4) 05/13/16 21:10 PTT (Actin FS) 26.1 SECONDS (26.0-38.0) 05/13/16 21:10 Sodium 143 mEq/L (136-145) 05/15/16 05:55 Potassium 4.3 mEq/L (3.5-5.1) 05/15/16 05:55 Chloride 116 mEq/L (98-107) H 05/15/16 05:55 Carbon Dioxide 22.6 mEq/L (21.0-31.0) 05/15/16 05:55 Anion Gap 8.7 (7.0-16.0) 05/15/16 05:55 BUN 39 mg/dL (7-25) H 05/15/16 05:55 Creatinine 1.3 mg/dL (0.7-1.3) 05/15/16 05:55 Est GFR ( Amer) > 60.0 ml/min 05/15/16 05:55 Est GFR (Non-Af Amer) 58.2 ml/min 05/15/16 05:55 BUN/Creatinine Ratio 30.0 05/15/16 05:55 Glucose 165 mg/dL (70-105) H 05/15/16 05:55 POC Glucose 136 MG/DL (70 - 105) H 05/15/16 12:30 Hemoglobin A1c % 5.8 % (4.0-6.0) 05/13/16 20:10 Uric Acid 12.2 mg/dL (4.4-7.6) H 05/15/16 05:55 Calcium 8.9 mg/dL (8.6-10.3) 05/15/16 05:55 Phosphorus 3.7 mg/dL (2.5-5.0) 05/15/16 05:55 Magnesium 2.3 mg/dL (1.9-2.7) 05/15/16 05:55 Total Bilirubin 0.3 mg/dL (0.3-1.0) 05/14/16 06:40 AST 30 U/L (13-39) 05/14/16 06:40 ALT 25 U/L (7-52) 05/14/16 06:40 Alkaline Phosphatase 76 U/L (34-104) 05/14/16 06:40 Ammonia 50 umol/L (16-53) 05/13/16 21:10 Creatine Kinase 31 U/L (30-223) 05/13/16 21:10 CK-MB (CK-2) 0.6 ng/mL (0.6-6.3) 05/13/16 21:10 Troponin I 0.03 ng/mL (0.01-0.05) 05/13/16 21:10 B-Natriuretic Peptide 62.0 pg/mL (5.0-100.0) 05/13/16 21:10 Total Protein 8.0 gm/dL (6.0-8.3) 05/14/16 06:40 Albumin 3.4 gm/dL (4.2-5.5) L 05/14/16 06:40 Globulin 4.6 gm/dL 05/14/16 06:40 Albumin/Globulin Ratio 0.7 (1.0-1.8) L 05/14/16 06:40 Urine Source CLEAN C 05/13/16 21:30 Urine Color YELLOW 05/13/16 21:30 Urine Clarity HAZY (CLEAR) 05/13/16 21:30 Urine pH 5.5 05/13/16 21:30 Ur Specific [place] 1.015 (1.005-1.030) 05/13/16 21:30 Urine Protein 100 mg/dL (NEGATIVE) H 05/13/16 21:30 Urine Glucose (UA) NEGATIVE mg/dL (NEGATIVE) 05/13/16 21:30 Urine Ketones NEGATIVE mg/dL (NEGATIVE) 05/13/16 21:30 Urine Blood NEGATIVE (NEGATIVE) 05/13/16 21:30 Urine Nitrate NEGATIVE (NEGATIVE) 05/13/16 21:30 Urine Bilirubin NEGATIVE (NEGATIVE) 05/13/16 21:30 Urine Urobilinogen 0.2 E.U./dL (0.2 - 1.0) 05/13/16 21:30 Ur Leukocyte Esterase TRACE (NEGATIVE) H 05/13/16 21:30 Urine RBC 2-5 /hpf (0-5) H 05/13/16 21:30 Urine WBC 10-25 /hpf (0-5) H 05/13/16 21:30 Ur Epithelial Cells MODERATE /lpf (FEW) 05/13/16 21:30 Urine Bacteria MODERATE /hpf (NONE SEEN) 05/13/16 21:30 Urine Yeast MODERATE /hpf (NONE SEEN) H 05/13/16 21:30 Ur Random Sodium 67 mmol/L 05/15/16 03:13 Urine Creatinine 63.0 mg/dl (39.0-259.0) 05/15/16 03:13 Urine Microalbumin 566.8 ug/mL (Not Estab.) 05/13/16 21:30 Microalb/Creat Ratio 613.4 mg/g creat (0.0-30.0) H 05/13/16 21:30 Urine Opiates Screen NEGATIVE (NEGATIVE) 05/13/16 21:30 Ur Barbiturates Screen NEGATIVE (NEGATIVE) 05/13/16 21:30 Ur Phencyclidine Scrn NEGATIVE (NEGATIVE) 05/13/16 21:30 Amphetamines Screen NEGATIVE (NEGATIVE) 05/13/16 21:30 U Methamphetamines Scrn NEGATIVE (NEGATIVE) 05/13/16 21:30 U Benzodiazepines Scrn NEGATIVE (NEGATIVE) 05/13/16 21:30 U Cocaine Metab Screen NEGATIVE (NEGATIVE) 05/13/16 21:30 U Cannabinoids Screen NEGATIVE (NEGATIVE) 05/13/16 21:30 Ethyl Alcohol < 10 mg/dL (0-10) 05/13/16 21:10 - Physical Exam Vitals and I&O: Vital Signs Temp 98.3 F 05/15/16 04:00 Pulse 75 05/15/16 04:00 Resp 18 05/15/16 04:00 BP 119/50 05/15/16 04:00 Pulse Ox 99 05/15/16 04:00 Intake & Output 05/14/16 05/15/16 05/15/16 18:59 06:59 18:59 Intake Total 3197.5 1440 Output Total 350 Balance 2847.5 1440 Intake: Intake, IV Amount 1952.5 1000 D5-0.45NS 1,000 ml @ 150 1952.5 1000 mls/hr IV .Q6H40M [facility] Rx# :[id number] Oral 300 Tube Feeding 715 440 Other 230 Output: Urine 350 Other: # Voids 5 4 # Bowel Movements 3 1 Stool Characteristics Soft Active Medications: Current Medications Acetaminophen (Tylenol 650mg/20.3ml Suspension) 500 mg GT Q4HR PRN PRN Reason: Pain (Severe) Stop: 07/12/16 23:17 Ascorbic Acid (Vitamin C) 500 mg GT DAILY [facility] Stop: 07/13/16 08:59 Last Admin: 05/15/16 09:43 Dose: 500 mg Bisacodyl (Dulcolax 10 Mg Supp) 10 mg RC DAILY PRN PRN Reason: Constipation Stop: 07/12/16 23:17 Doxazosin Mesylate (Cardura) 5 mg GT DAILY [facility] Stop: 07/13/16 08:59 Last Admin: 05/15/16 09:43 Dose: 5 mg Ferrous Sulfate (Iron) 300 mg GT DAILY [facility] Stop: 07/13/16 08:59 Last Admin: 05/15/16 09:44 Dose: 300 mg Fluconazole (Diflucan) 100 mg PO DAILY [facility] Stop: 07/13/16 17:59 Last Admin: 05/15/16 09:44 Dose: 100 mg Gabapentin (Neurontin) 100 mg GT HS [facility] Stop: 07/13/16 20:59 Last Admin: 05/14/16 21:38 Dose: 100 mg Heparin Sodium (Porcine) (Heparin) 5,000 units SUBQ Q12HR [facility] Stop: 07/13/16 08:59 Last Admin: 05/15/16 09:44 Dose: 5,000 units Dextrose/Sodium Chloride (D5-0.45ns) 1,000 mls @ 75 mls/hr IV .[id number] [facility] Stop: 07/12/16 23:14 Insulin Aspart (Novolog Insulin Sliding Scale) 0 units SUBQ ACHS [facility] PRN Reason: Protocol Stop: 07/13/16 07:29 Last Admin: 05/15/16 12:31 Dose: Not Given Insulin Detemir (Levemir Insulin) 10 units SUBQ HS [facility] PRN Reason: Protocol Stop: 07/13/16 20:59 Last Admin: 05/14/16 22:32 Dose: 10 units Insulin Detemir (Levemir Insulin) 15 units SUBQ QAM [facility] PRN Reason: Protocol Stop: 07/13/16 08:59 Last Admin: 05/15/16 09:45 Dose: 15 unit Lactulose (Cephulac) 30 gm GT Q8HR [facility] Stop: 07/13/16 04:59 Last Admin: 05/15/16 05:30 Dose: 30 gm Levetiracetam (Keppra) 500 mg GT Q12HR [facility] Stop: 07/13/16 08:59 Last Admin: 05/15/16 09:44 Dose: 500 mg Magnesium Hydroxide (Milk Of Magnesia) 30 ml GT HS PRN PRN Reason: Constipation Stop: 07/12/16 23:17 Miscellaneous (Vancomycin Iv Per Pharmacy) 1 ea [facility] PRN PRN PRN Reason: PROTOCOL Stop: 07/14/16 13:17 Multivitamins/Minerals (Theragran M) 5 ml GT DAILY [facility] Stop: 07/13/16 08:59 Last Admin: 05/15/16 10:00 Dose: 5 ml Mupirocin (Bactroban Oint) 1 appl NS BID [facility] Stop: 07/13/16 08:59 Last Admin: 05/15/16 09:43 Dose: 1 appl Pantoprazole Sodium (Protonix) 40 mg GT QDAC [facility] Stop: 07/13/16 06:29 Last Admin: 05/15/16 06:06 Dose: 40 mg Senna (Senna) 17.2 mg GT HS [facility] Stop: 07/13/16 20:59 Last Admin: 05/14/16 21:35 Dose: 17.2 mg Sodium Phosphate (Fleet Enema) 135 ml RC Q2D PRN PRN Reason: Constipation Stop: 07/12/16 23:17 General: Moderate distress Neck: Supple Cardiovascular: Regular rate Lungs: Clear to auscultation Psych/Mental Status: Mental status NL (s/p peg ) - Procedures Procedures: Procedures Procedure Code Date CHANGE FEEDING DEVICE IN UP INTEST TRACT, QM CONSULTANT APPROACH [id number] 03/25/16 EXCISION OF DUODENUM, ENDO, DIAGN [id number] 03/25/16 EXCISION OF ESOPHAGOGASTRIC JUNCTION, ENDO, DIAGN [id number] 03/25/16 EXCISION OF STOMACH, PYLORUS, ENDO, DIAGN [id number] 03/25/16 EXCISION OF TRANSVERSE COLON, ENDO, DIAGN [id number] 03/25/16 EXTIRPATION OF MATTER FROM COMMON BILE DUCT, ENDO [id number] 01/28/16 FLUOROSCOPY OF BILE DUCTS USING LOW OSMOLAR CONTRAST [id number] 01/28/16 REMOVAL OF INTRALUMINAL DEVICE FROM HEPATOBILIARY DUCT, ENDO [id number] 01/28/16 Assessment/Plan - Problem List Patient Problems: All Active Problems Abdominal pain (Acute) R10.9 Acute hypernatremia (Acute) E87.0 Acute hypernatremia (Acute) E87.0 Acute renal disease (Acute) N28.9 Anemia (Acute) D64.9 Diabetes (Acute) E11.9 GERD (gastroesophageal reflux disease) (Acute) K21.9 Gout (Acute) M10.9 History of DVT (deep vein thrombosis) (Acute) Z86.718 Hyperkalemia (Acute) E87.5 Hypernatremia (Acute) E87.0 Malnutrition (Acute) E46 Metabolic encephalopathy (Acute) G93.41 Pressure ulcer of sacral region (Acute) - Assessment Assessment: uti
--- NOTE | 2016-05-15 13:32 | Diagnostic Imaging Report ---
Renal ultrasound HISTORY: Abnormal renal function tests The right kidney is normal in size (11.1 x 5.8 x 5.8 cm). No focal lesions. No hydronephrosis. The left kidney is normal in size (10.9 x 6.1 x 5.9 cm). No focal lesions. No hydronephrosis. There is a distended urinary bladder with no definite intraluminal abnormalities. IMPRESSION: 1. Negative examination
--- NOTE | 2016-05-15 20:04 | Infectious Disease Prog Note ---
Infectious Disease Subjective - Review of Systems Service Date: 05/15/16 Subjective: Blood cultures came positive, so ID consult was called for further evaluation. Please review details in the H & Performed yesterday. Infectious Disease Objective - Results Result Diagrams: 05/15/16 05:55 05/15/16 05:55 Recent Labs: Laboratory Last Values WBC 5.6 Th/cmm (4.8-10.8) 05/15/16 05:55 RBC 3.35 Mil/cmm (3.80-5.80) L 05/15/16 05:55 Hgb 11.1 gm/dL (12.6-17.4) L 05/15/16 05:55 Hct 32.2 % (39.0-49.0) L 05/15/16 05:55 MCV 96.2 fl (80-99) 05/15/16 05:55 MCH 33.0 pg (27.0-31.0) H 05/15/16 05:55 MCHC Differential 34.3 pg (28.0-36.0) 05/15/16 05:55 RDW 15.2 % (11.5-20.0) 05/15/16 05:55 Plt Count 98 Th/cmm (150-400) L 05/15/16 05:55 MPV 9.9 fl 05/15/16 05:55 Neutrophils % 51.4 % (40.0-80.0) 05/15/16 05:55 Lymphocytes % 33.4 % (20.0-50.0) 05/15/16 05:55 Monocytes % 7.8 % (2.0-10.0) 05/15/16 05:55 Eosinophils % 7.3 % (0.0-5.0) H 05/15/16 05:55 Basophils % 0.1 % (0.0-2.0) 05/15/16 05:55 PT 10.4 SECONDS (9.5-11.5) 05/13/16 21:10 INR 1.05 (0.5-1.4) 05/13/16 21:10 PTT (Actin FS) 26.1 SECONDS (26.0-38.0) 05/13/16 21:10 Sodium 143 mEq/L (136-145) 05/15/16 05:55 Potassium 4.3 mEq/L (3.5-5.1) 05/15/16 05:55 Chloride 116 mEq/L (98-107) H 05/15/16 05:55 Carbon Dioxide 22.6 mEq/L (21.0-31.0) 05/15/16 05:55 Anion Gap 8.7 (7.0-16.0) 05/15/16 05:55 BUN 39 mg/dL (7-25) H 05/15/16 05:55 Creatinine 1.3 mg/dL (0.7-1.3) 05/15/16 05:55 Est GFR ( Amer) > 60.0 ml/min 05/15/16 05:55 Est GFR (Non-Af Amer) 58.2 ml/min 05/15/16 05:55 BUN/Creatinine Ratio 30.0 05/15/16 05:55 Glucose 165 mg/dL (70-105) H 05/15/16 05:55 POC Glucose 108 MG/DL (70 - 105) H 05/15/16 17:15 Hemoglobin A1c % 5.8 % (4.0-6.0) 05/13/16 20:10 Uric Acid 12.2 mg/dL (4.4-7.6) H 05/15/16 05:55 Calcium 8.9 mg/dL (8.6-10.3) 05/15/16 05:55 Phosphorus 3.7 mg/dL (2.5-5.0) 05/15/16 05:55 Magnesium 2.3 mg/dL (1.9-2.7) 05/15/16 05:55 Total Bilirubin 0.3 mg/dL (0.3-1.0) 05/14/16 06:40 AST 30 U/L (13-39) 05/14/16 06:40 ALT 25 U/L (7-52) 05/14/16 06:40 Alkaline Phosphatase 76 U/L (34-104) 05/14/16 06:40 Ammonia 50 umol/L (16-53) 05/13/16 21:10 Creatine Kinase 31 U/L (30-223) 05/13/16 21:10 CK-MB (CK-2) 0.6 ng/mL (0.6-6.3) 05/13/16 21:10 Troponin I 0.03 ng/mL (0.01-0.05) 05/13/16 21:10 B-Natriuretic Peptide 62.0 pg/mL (5.0-100.0) 05/13/16 21:10 Total Protein 8.0 gm/dL (6.0-8.3) 05/14/16 06:40 Albumin 3.4 gm/dL (4.2-5.5) L 05/14/16 06:40 Globulin 4.6 gm/dL 05/14/16 06:40 Albumin/Globulin Ratio 0.7 (1.0-1.8) L 05/14/16 06:40 Urine Source CLEAN C 05/13/16 21:30 Urine Color YELLOW 05/13/16 21:30 Urine Clarity HAZY (CLEAR) 05/13/16 21:30 Urine pH 5.5 05/13/16 21:30 Ur Specific [place] 1.015 (1.005-1.030) 05/13/16 21:30 Urine Protein 100 mg/dL (NEGATIVE) H 05/13/16 21:30 Urine Glucose (UA) NEGATIVE mg/dL (NEGATIVE) 05/13/16 21:30 Urine Ketones NEGATIVE mg/dL (NEGATIVE) 05/13/16 21:30 Urine Blood NEGATIVE (NEGATIVE) 05/13/16 21:30 Urine Nitrate NEGATIVE (NEGATIVE) 05/13/16 21:30 Urine Bilirubin NEGATIVE (NEGATIVE) 05/13/16 21:30 Urine Urobilinogen 0.2 E.U./dL (0.2 - 1.0) 05/13/16 21:30 Ur Leukocyte Esterase TRACE (NEGATIVE) H 05/13/16 21:30 Urine RBC 2-5 /hpf (0-5) H 05/13/16 21:30 Urine WBC 10-25 /hpf (0-5) H 05/13/16 21:30 Ur Epithelial Cells MODERATE /lpf (FEW) 05/13/16 21:30 Urine Bacteria MODERATE /hpf (NONE SEEN) 05/13/16 21:30 Urine Yeast MODERATE /hpf (NONE SEEN) H 05/13/16 21:30 Ur Random Sodium 67 mmol/L 05/15/16 03:13 Urine Creatinine 63.0 mg/dl (39.0-259.0) 05/15/16 03:13 Urine Microalbumin 566.8 ug/mL (Not Estab.) 05/13/16 21:30 Microalb/Creat Ratio 613.4 mg/g creat (0.0-30.0) H 05/13/16 21:30 Urine Opiates Screen NEGATIVE (NEGATIVE) 05/13/16 21:30 Ur Barbiturates Screen NEGATIVE (NEGATIVE) 05/13/16 21:30 Ur Phencyclidine Scrn NEGATIVE (NEGATIVE) 05/13/16 21:30 Amphetamines Screen NEGATIVE (NEGATIVE) 05/13/16 21:30 U Methamphetamines Scrn NEGATIVE (NEGATIVE) 05/13/16 21:30 U Benzodiazepines Scrn NEGATIVE (NEGATIVE) 05/13/16 21:30 U Cocaine Metab Screen NEGATIVE (NEGATIVE) 05/13/16 21:30 U Cannabinoids Screen NEGATIVE (NEGATIVE) 05/13/16 21:30 Ethyl Alcohol < 10 mg/dL (0-10) 05/13/16 21:10 - Physical Exam Vitals and I&O: Vital Signs Temp 98.7 F 05/15/16 08:00 Pulse 80 05/15/16 08:00 Resp 18 05/15/16 08:00 BP 127/54 05/15/16 08:00 Pulse Ox 96 05/15/16 08:00 Intake & Output 05/15/16 05/15/16 05/16/16 06:59 18:59 06:59 Intake Total 1440 860 Balance 1440 860 Intake: Intake, IV Amount 1000 D5-0.45NS 1,000 ml @ 150 1000 mls/hr IV .Q6H40M [facility] [place] Rx# :[id number] Tube Feeding 440 660 Other 200 Other: # Voids 4 3 # Bowel Movements 1 2 Stool Characteristics Soft Soft Liquid Active Medications: Current Medications Acetaminophen (Tylenol 650mg/20.3ml Suspension) 500 mg GT Q4HR PRN PRN Reason: Pain (Severe) Stop: 07/12/16 23:17 Ascorbic Acid (Vitamin C) 500 mg GT DAILY [facility] [place] Stop: 07/13/16 08:59 Last Admin: 05/15/16 09:43 Dose: 500 mg Bisacodyl (Dulcolax 10 Mg Supp) 10 mg RC DAILY PRN PRN Reason: Constipation Stop: 07/12/16 23:17 Doxazosin Mesylate (Cardura) 5 mg GT DAILY [facility] Stop: 07/13/16 08:59 Last Admin: 05/15/16 09:43 Dose: 5 mg Ferrous Sulfate (Iron) 300 mg GT DAILY [facility] Stop: 07/13/16 08:59 Last Admin: 05/15/16 09:44 Dose: 300 mg Fluconazole (Diflucan) 100 mg PO DAILY [facility] Stop: 07/13/16 17:59 Last Admin: 05/15/16 09:44 Dose: 100 mg Gabapentin (Neurontin) 100 mg GT HS [facility] Stop: 07/13/16 20:59 Last Admin: 05/14/16 21:38 Dose: 100 mg Heparin Sodium (Porcine) (Heparin) 5,000 units SUBQ Q12HR [facility] Stop: 07/13/16 08:59 Last Admin: 05/15/16 09:44 Dose: 5,000 units Dextrose/Sodium Chloride (D5-0.45ns) 1,000 mls @ 75 mls/hr IV .[id number] [facility] Stop: 07/12/16 23:14 Last Admin: 05/15/16 17:20 Dose: 75 mls/hr Vancomycin HCl 1 gm/ Sodium (Chloride) 250 mls @ 165 mls/hr IV Q12H [facility] Stop: 07/14/16 14:59 Last Admin: 05/15/16 16:21 Dose: 165 mls/hr Insulin Aspart (Novolog Insulin Sliding Scale) 0 units SUBQ ACHS [facility] PRN Reason: Protocol Stop: 07/13/16 07:29 Last Admin: 05/15/16 17:15 Dose: Not Given Insulin Detemir (Levemir Insulin) 10 units SUBQ HS [facility] PRN Reason: Protocol Stop: 07/13/16 20:59 Last Admin: 05/14/16 22:32 Dose: 10 units Insulin Detemir (Levemir Insulin) 15 units SUBQ QAM [facility] PRN Reason: Protocol Stop: 07/13/16 08:59 Last Admin: 05/15/16 09:45 Dose: 15 unit Lactulose (Cephulac) 30 gm GT Q8HR [facility] [place] Stop: 07/13/16 04:59 Last Admin: 05/15/16 17:09 Dose: 30 gm Levetiracetam (Keppra) 500 mg GT Q12HR [facility] Stop: 07/13/16 08:59 Last Admin: 05/15/16 09:44 Dose: 500 mg Magnesium Hydroxide (Milk Of Magnesia) 30 ml GT HS PRN PRN Reason: Constipation Stop: 07/12/16 23:17 Miscellaneous (Vancomycin Iv Per Pharmacy) 1 ea [facility] PRN PRN PRN Reason: PROTOCOL Stop: 07/14/16 13:17 Multivitamins/Minerals (Theragran M) 5 ml GT DAILY [facility] Stop: 07/13/16 08:59 Last Admin: 05/15/16 10:00 Dose: 5 ml Mupirocin (Bactroban Oint) 1 appl NS BID [facility] Stop: 07/13/16 08:59 Last Admin: 05/15/16 17:09 Dose: 1 appl Pantoprazole Sodium (Protonix) 40 mg GT QDAC [facility] Stop: 07/13/16 06:29 Last Admin: 05/15/16 06:06 Dose: 40 mg Senna (Senna) 17.2 mg GT HS [facility] Stop: 07/13/16 20:59 Last Admin: 05/14/16 21:35 Dose: 17.2 mg Sodium Phosphate (Fleet Enema) 135 ml RC Q2D PRN PRN Reason: Constipation Stop: 07/12/16 23:17 General: no acute distress, well developed, well nourished HEENT: atraumatic, normocephalic, PERRLA, EOMI, moist mucous membrane Neck: supple Cardiovascular: S1S2, regular Lungs: clear to percussion, crackles Abdomen: soft, no tender, no distended Extremities: other (discolorationo the lower leg and foot areas.), no cyanosis, no clubbing, no edema Neurological: awake, alert, other (confused.) Skin: intact - Procedures Procedures: Procedures Procedure Code Date CHANGE FEEDING DEVICE IN UP INTEST TRACT, SEED TRUCKER APPROACH [id number] 03/25/16 EXCISION OF DUODENUM, ENDO, DIAGN [id number] 03/25/16 EXCISION OF ESOPHAGOGASTRIC JUNCTION, ENDO, DIAGN [id number] 03/25/16 EXCISION OF STOMACH, PYLORUS, ENDO, DIAGN [id number] 03/25/16 EXCISION OF TRANSVERSE COLON, ENDO, DIAGN [id number] 03/25/16 EXTIRPATION OF MATTER FROM COMMON BILE DUCT, ENDO [id number] 01/28/16 FLUOROSCOPY OF BILE DUCTS USING LOW OSMOLAR CONTRAST [id number] 01/28/16 REMOVAL OF INTRALUMINAL DEVICE FROM HEPATOBILIARY DUCT, ENDO [id number] 01/28/16 Infectious Disease Assmt/Plan - Problem List Patient Problems: All Active Problems Abdominal pain (Acute) R10.9 Acute hypernatremia (Acute) E87.0 Acute hypernatremia (Acute) E87.0 Acute renal disease (Acute) N28.9 Anemia (Acute) D64.9 Diabetes (Acute) E11.9 GERD (gastroesophageal reflux disease) (Acute) K21.9 Gout (Acute) M10.9 History of DVT (deep vein thrombosis) (Acute) Z86.718 Hyperkalemia (Acute) E87.5 Hypernatremia (Acute) E87.0 Malnutrition (Acute) E46 Metabolic encephalopathy (Acute) G93.41 Pressure ulcer of sacral region (Acute) - Assessment Assessment: 1. Staphylococcal bactermia. 2. Pneumonia. 3. UTI. 4. BAN. 5. DM2 6. Dementia. - Plan Plan: Agree with vanco IV and jasvirehin. repeat blood cultures. Follow up on culture reports and take decision accordingly.
[2016-05-16] MEDS: INSULIN ASPART SLIDING SCALE 100 UNITS/ML UNIT SUBQ SCH ×4 (06:35→22:36)
[2016-05-16] MEDS: Pantoprazole 40 mg/Packet GT SCH (06:35)
[2016-05-16] MEDS: Lactulose 10 Gm/15 mL 30mL UDC GT SCH ×3 (06:35→22:42)
[2016-05-16 07:16] LABS: % BASOPHILS 0.1 % (0.0-2.0); % EOSINOPHILS 9.2 % (0.0-5.0); % LYMPHOCYTES 27.2 % (20.0-50.0); % MONOCYTES 5.2 % (2.0-10.0); % NEUTROPHILS 58.3 % (40.0-80.0); HEMATOCRIT 29.8 % (39.0-49.0); HEMOGLOBIN 10.2 gm/dL (12.6-17.4); MEAN CELL VOLUME 96.1 fl (80-99); MEAN CORPUSCULAR HEMOGLOBIN 32.8 pg (27.0-31.0); MEAN CORPUSCULAR HGB CONC 34.1 pg (28.0-36.0); MEAN PLATELET VOLUME 10.2 fl; PLATELET COUNT 102 Th/cmm (150-400); RED CELL DISTRIBUTION WIDTH 14.9 % (11.5-20.0); WHITE BLOOD COUNT 6.7 Th/cmm (4.8-10.8)
[2016-05-16 07:49] LABS: ANION GAP 6.9 (7.0-16.0); BUN - UREA NITROGEN 32 mg/dL (7-25); BUN/CREATININE RATIO 24.6; CARBON DIOXIDE 24.5 mEq/L (21.0-31.0); CHLORIDE 117 mEq/L (98-107); CREATININE - SERUM 1.3 mg/dL (0.7-1.3); GLUCOSE 81 mg/dL (70-105); POTASSIUM SERUM 4.4 mEq/L (3.5-5.1); SODIUM SERUM 144 mEq/L (136-145)
[2016-05-16] MEDS: Ferrous Sulfate 300 MG/5 ML UDC GT SCH (09:17)
[2016-05-16] MEDS: Levetiracetam 500 mg/5mL 5mL UDC GT SCH ×2 (09:17→23:00)
[2016-05-16] MEDS: Insulin Detemir 100 units/mL 10mL Vial SUBQ SCH ×2 (09:20→22:38)
[2016-05-16] MEDS: Multivitamin w/ Minerals Tab GT SCH (10:03)
--- NOTE | 2016-05-16 10:30 | General Progress Note ---
Subjective - Review of Systems Service Date: 05/16/16 Subjective: c/o weakness Objective - Results Result Diagrams: 05/16/16 06:15 05/16/16 06:15 Recent Labs: Laboratory Last Values WBC 6.7 Th/cmm (4.8-10.8) 05/16/16 06:15 RBC 3.10 Mil/cmm (3.80-5.80) L 05/16/16 06:15 Hgb 10.2 gm/dL (12.6-17.4) L 05/16/16 06:15 Hct 29.8 % (39.0-49.0) L 05/16/16 06:15 MCV 96.1 fl (80-99) 05/16/16 06:15 MCH 32.8 pg (27.0-31.0) H 05/16/16 06:15 MCHC Differential 34.1 pg (28.0-36.0) 05/16/16 06:15 RDW 14.9 % (11.5-20.0) 05/16/16 06:15 Plt Count 102 Th/cmm (150-400) L 05/16/16 06:15 MPV 10.2 fl 05/16/16 06:15 Neutrophils % 58.3 % (40.0-80.0) 05/16/16 06:15 Lymphocytes % 27.2 % (20.0-50.0) 05/16/16 06:15 Monocytes % 5.2 % (2.0-10.0) 05/16/16 06:15 Eosinophils % 9.2 % (0.0-5.0) H 05/16/16 06:15 Basophils % 0.1 % (0.0-2.0) 05/16/16 06:15 PT 10.4 SECONDS (9.5-11.5) 05/13/16 21:10 INR 1.05 (0.5-1.4) 05/13/16 21:10 PTT (Actin FS) 26.1 SECONDS (26.0-38.0) 05/13/16 21:10 Sodium 144 mEq/L (136-145) 05/16/16 06:15 Potassium 4.4 mEq/L (3.5-5.1) 05/16/16 06:15 Chloride 117 mEq/L (98-107) H 05/16/16 06:15 Carbon Dioxide 24.5 mEq/L (21.0-31.0) 05/16/16 06:15 Anion Gap 6.9 (7.0-16.0) L 05/16/16 06:15 BUN 32 mg/dL (7-25) H 05/16/16 06:15 Creatinine 1.3 mg/dL (0.7-1.3) 05/16/16 06:15 Est GFR ( Amer) > 60.0 ml/min 05/16/16 06:15 Est GFR (Non-Af Amer) 58.2 ml/min 05/16/16 06:15 BUN/Creatinine Ratio 24.6 05/16/16 06:15 Glucose 81 mg/dL (70-105) 05/16/16 06:15 POC Glucose 80 MG/DL (70 - 105) 05/16/16 06:12 Hemoglobin A1c % 5.8 % (4.0-6.0) 05/13/16 20:10 Uric Acid 12.2 mg/dL (4.4-7.6) H 05/15/16 05:55 Calcium 9.0 mg/dL (8.6-10.3) 05/16/16 06:15 Phosphorus 3.7 mg/dL (2.5-5.0) 05/15/16 05:55 Magnesium 2.3 mg/dL (1.9-2.7) 05/15/16 05:55 Total Bilirubin 0.3 mg/dL (0.3-1.0) 05/14/16 06:40 AST 30 U/L (13-39) 05/14/16 06:40 ALT 25 U/L (7-52) 05/14/16 06:40 Alkaline Phosphatase 76 U/L (34-104) 05/14/16 06:40 Ammonia 50 umol/L (16-53) 05/13/16 21:10 Creatine Kinase 31 U/L (30-223) 05/13/16 21:10 CK-MB (CK-2) 0.6 ng/mL (0.6-6.3) 05/13/16 21:10 Troponin I 0.03 ng/mL (0.01-0.05) 05/13/16 21:10 B-Natriuretic Peptide 62.0 pg/mL (5.0-100.0) 05/13/16 21:10 Total Protein 8.0 gm/dL (6.0-8.3) 05/14/16 06:40 Albumin 3.4 gm/dL (4.2-5.5) L 05/14/16 06:40 Globulin 4.6 gm/dL 05/14/16 06:40 Albumin/Globulin Ratio 0.7 (1.0-1.8) L 05/14/16 06:40 Urine Source CLEAN C 05/13/16 21:30 Urine Color YELLOW 05/13/16 21:30 Urine Clarity HAZY (CLEAR) 05/13/16 21:30 Urine pH 5.5 05/13/16 21:30 Ur Specific [place] 1.015 (1.005-1.030) 05/13/16 21:30 Urine Protein 100 mg/dL (NEGATIVE) H 05/13/16 21:30 Urine Glucose (UA) NEGATIVE mg/dL (NEGATIVE) 05/13/16 21:30 Urine Ketones NEGATIVE mg/dL (NEGATIVE) 05/13/16 21:30 Urine Blood NEGATIVE (NEGATIVE) 05/13/16 21:30 Urine Nitrate NEGATIVE (NEGATIVE) 05/13/16 21:30 Urine Bilirubin NEGATIVE (NEGATIVE) 05/13/16 21:30 Urine Urobilinogen 0.2 E.U./dL (0.2 - 1.0) 05/13/16 21:30 Ur Leukocyte Esterase TRACE (NEGATIVE) H 05/13/16 21:30 Urine RBC 2-5 /hpf (0-5) H 05/13/16 21:30 Urine WBC 10-25 /hpf (0-5) H 05/13/16 21:30 Ur Epithelial Cells MODERATE /lpf (FEW) 05/13/16 21:30 Urine Bacteria MODERATE /hpf (NONE SEEN) 05/13/16 21:30 Urine Yeast MODERATE /hpf (NONE SEEN) H 05/13/16 21:30 Ur Random Sodium 67 mmol/L 05/15/16 03:13 Urine Creatinine 63.0 mg/dl (39.0-259.0) 05/15/16 03:13 Urine Microalbumin 566.8 ug/mL (Not Estab.) 05/13/16 21:30 Microalb/Creat Ratio 613.4 mg/g creat (0.0-30.0) H 05/13/16 21:30 Urine Opiates Screen NEGATIVE (NEGATIVE) 05/13/16 21:30 Ur Barbiturates Screen NEGATIVE (NEGATIVE) 05/13/16 21:30 Ur Phencyclidine Scrn NEGATIVE (NEGATIVE) 05/13/16 21:30 Amphetamines Screen NEGATIVE (NEGATIVE) 05/13/16 21:30 U Methamphetamines Scrn NEGATIVE (NEGATIVE) 05/13/16 21:30 U Benzodiazepines Scrn NEGATIVE (NEGATIVE) 05/13/16 21:30 U Cocaine Metab Screen NEGATIVE (NEGATIVE) 05/13/16 21:30 U Cannabinoids Screen NEGATIVE (NEGATIVE) 05/13/16 21:30 Ethyl Alcohol < 10 mg/dL (0-10) 05/13/16 21:10 - Physical Exam Vitals and I&O: Vital Signs Temp 98.3 F 05/16/16 07:51 Pulse 95 05/16/16 07:51 Resp 18 05/16/16 07:51 BP 108/50 05/16/16 07:51 Pulse Ox 99 05/16/16 07:51 Intake & Output 05/15/16 05/16/16 05/16/16 18:59 06:59 18:59 Intake Total 1110 720 Balance 1110 720 Intake: Intake, IV Amount 250 Vancomycin HCl 1 gm In 250 Sodium Chloride 0.9% 250 ml @ 165 mls/hr IV Q12H [facility] Rx#:[id number] Tube Feeding 660 440 Other 200 280 Other: # Voids 3 # Bowel Movements 2 2 Stool Characteristics Soft Liquid Liquid Green Active Medications: Current Medications Acetaminophen (Tylenol 650mg/20.3ml Suspension) 500 mg GT Q4HR PRN PRN Reason: Pain (Severe) Stop: 07/12/16 23:17 Ascorbic Acid (Vitamin C) 500 mg GT DAILY [facility] Stop: 07/13/16 08:59 Last Admin: 05/16/16 09:17 Dose: 500 mg Bisacodyl (Dulcolax 10 Mg Supp) 10 mg RC DAILY PRN PRN Reason: Constipation Stop: 07/12/16 23:17 Doxazosin Mesylate (Cardura) 5 mg GT DAILY [facility] Stop: 07/13/16 08:59 Last Admin: 05/16/16 09:17 Dose: 5 mg Ferrous Sulfate (Iron) 300 mg GT DAILY [facility] Stop: 07/13/16 08:59 Last Admin: 05/16/16 09:17 Dose: 300 mg Fluconazole (Diflucan) 100 mg PO DAILY [facility] Stop: 07/13/16 17:59 Last Admin: 05/16/16 09:18 Dose: 100 mg Gabapentin (Neurontin) 100 mg GT HS [facility] Stop: 07/13/16 20:59 Last Admin: 05/15/16 22:32 Dose: 100 mg Heparin Sodium (Porcine) (Heparin) 5,000 units SUBQ Q12HR [facility] Stop: 07/13/16 08:59 Last Admin: 05/16/16 09:18 Dose: 5,000 units Dextrose/Sodium Chloride (D5-0.45ns) 1,000 mls @ 75 mls/hr IV .[id number] [facility] Stop: 07/12/16 23:14 Last Admin: 05/15/16 17:20 Dose: 75 mls/hr Vancomycin HCl 1 gm/ Sodium (Chloride) 250 mls @ 165 mls/hr IV Q12H [facility] Stop: 07/14/16 14:59 Last Admin: 05/16/16 02:55 Dose: 165 mls/hr Insulin Aspart (Novolog Insulin Sliding Scale) 0 units SUBQ ACHS [facility] PRN Reason: Protocol Stop: 07/13/16 07:29 Last Admin: 05/16/16 06:35 Dose: Not Given Insulin Detemir (Levemir Insulin) 10 units SUBQ HS [facility] PRN Reason: Protocol Stop: 07/13/16 20:59 Last Admin: 05/15/16 22:38 Dose: 10 units Insulin Detemir (Levemir Insulin) 15 units SUBQ QAM [facility] PRN Reason: Protocol Stop: 07/13/16 08:59 Last Admin: 05/16/16 09:20 Dose: Not Given Lactulose (Cephulac) 30 gm GT Q8HR [facility] Stop: 07/13/16 04:59 Last Admin: 05/16/16 06:35 Dose: Not Given Levetiracetam (Keppra) 500 mg GT Q12HR [facility] Stop: 07/13/16 08:59 Last Admin: 05/16/16 09:17 Dose: 500 mg Magnesium Hydroxide (Milk Of Magnesia) 30 ml GT HS PRN PRN Reason: Constipation Stop: 07/12/16 23:17 Miscellaneous (Vancomycin Iv Per Pharmacy) 1 ea [facility] PRN PRN PRN Reason: PROTOCOL Stop: 07/14/16 13:17 Mupirocin (Bactroban Oint) 1 appl NS BID [facility] Stop: 07/13/16 08:59 Last Admin: 05/16/16 09:25 Dose: 1 appl Pantoprazole Sodium (Protonix) 40 mg GT QDAC [facility] Stop: 07/13/16 06:29 Last Admin: 05/16/16 06:35 Dose: 40 mg Senna (Senna) 17.2 mg GT HS [facility] Stop: 07/13/16 20:59 Last Admin: 05/15/16 22:41 Dose: Not Given Sodium Phosphate (Fleet Enema) 135 ml RC Q2D PRN PRN Reason: Constipation Stop: 07/12/16 23:17 General: Moderate distress Neck: Supple, JVD Cardiovascular: Regular rate, Normal S1, Normal S2 Lungs: Clear to auscultation, Normal air movement Abdomen: Bowel sounds (s/p peg) Psych/Mental Status: Mental status NL - Procedures Procedures: Procedures Procedure Code Date CHANGE FEEDING DEVICE IN UP INTEST TRACT, PROJECT 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 MANAGER 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 [id number] 03/25/16 EXCISION OF DUODENUM, ENDO, DIAGN [id number] 03/25/16 EXCISION OF ESOPHAGOGASTRIC JUNCTION, ENDO, DIAGN [id number] 03/25/16 EXCISION OF STOMACH, PYLORUS, ENDO, DIAGN [id number] 03/25/16 EXCISION OF TRANSVERSE COLON, ENDO, DIAGN [id number] 03/25/16 EXTIRPATION OF MATTER FROM COMMON BILE DUCT, ENDO [id number] 01/28/16 FLUOROSCOPY OF BILE DUCTS USING LOW OSMOLAR CONTRAST [id number] 01/28/16 REMOVAL OF INTRALUMINAL DEVICE FROM HEPATOBILIARY DUCT, ENDO [id number] 01/28/16 Assessment/Plan - Problem List Patient Problems: All Active Problems uti (Acute) Abdominal pain (Acute) R10.9 Acute hypernatremia (Acute) E87.0 Acute hypernatremia (Acute) E87.0 Acute renal disease (Acute) N28.9 Anemia (Acute) D64.9 Diabetes (Acute) E11.9 GERD (gastroesophageal reflux disease) (Acute) K21.9 Gout (Acute) M10.9 History of DVT (deep vein thrombosis) (Acute) Z86.718 Hyperkalemia (Acute) E87.5 Hypernatremia (Acute) E87.0 Malnutrition (Acute) E46 Metabolic encephalopathy (Acute) G93.41 Pressure ulcer of sacral region (Acute)
--- NOTE | 2016-05-16 11:43 | General Progress Note ---
Subjective - Review of Systems Service Date: 05/16/16 Subjective: more awake, comfortable, verbal today Objective - Results Result Diagrams: 05/16/16 06:15 05/16/16 06:15 Recent Labs: Laboratory Last Values WBC 6.7 Th/cmm (4.8-10.8) 05/16/16 06:15 RBC 3.10 Mil/cmm (3.80-5.80) L 05/16/16 06:15 Hgb 10.2 gm/dL (12.6-17.4) L 05/16/16 06:15 Hct 29.8 % (39.0-49.0) L 05/16/16 06:15 MCV 96.1 fl (80-99) 05/16/16 06:15 MCH 32.8 pg (27.0-31.0) H 05/16/16 06:15 MCHC Differential 34.1 pg (28.0-36.0) 05/16/16 06:15 RDW 14.9 % (11.5-20.0) 05/16/16 06:15 Plt Count 102 Th/cmm (150-400) L 05/16/16 06:15 MPV 10.2 fl 05/16/16 06:15 Neutrophils % 58.3 % (40.0-80.0) 05/16/16 06:15 Lymphocytes % 27.2 % (20.0-50.0) 05/16/16 06:15 Monocytes % 5.2 % (2.0-10.0) 05/16/16 06:15 Eosinophils % 9.2 % (0.0-5.0) H 05/16/16 06:15 Basophils % 0.1 % (0.0-2.0) 05/16/16 06:15 PT 10.4 SECONDS (9.5-11.5) 05/13/16 21:10 INR 1.05 (0.5-1.4) 05/13/16 21:10 PTT (Actin FS) 26.1 SECONDS (26.0-38.0) 05/13/16 21:10 Sodium 144 mEq/L (136-145) 05/16/16 06:15 Potassium 4.4 mEq/L (3.5-5.1) 05/16/16 06:15 Chloride 117 mEq/L (98-107) H 05/16/16 06:15 Carbon Dioxide 24.5 mEq/L (21.0-31.0) 05/16/16 06:15 Anion Gap 6.9 (7.0-16.0) L 05/16/16 06:15 BUN 32 mg/dL (7-25) H 05/16/16 06:15 Creatinine 1.3 mg/dL (0.7-1.3) 05/16/16 06:15 Est GFR ( Amer) > 60.0 ml/min 05/16/16 06:15 Est GFR (Non-Af Amer) 58.2 ml/min 05/16/16 06:15 BUN/Creatinine Ratio 24.6 05/16/16 06:15 Glucose 81 mg/dL (70-105) 05/16/16 06:15 POC Glucose 80 MG/DL (70 - 105) 05/16/16 06:12 Hemoglobin A1c % 5.8 % (4.0-6.0) 05/13/16 20:10 Uric Acid 12.2 mg/dL (4.4-7.6) H 05/15/16 05:55 Calcium 9.0 mg/dL (8.6-10.3) 05/16/16 06:15 Phosphorus 3.7 mg/dL (2.5-5.0) 05/15/16 05:55 Magnesium 2.3 mg/dL (1.9-2.7) 05/15/16 05:55 Total Bilirubin 0.3 mg/dL (0.3-1.0) 05/14/16 06:40 AST 30 U/L (13-39) 05/14/16 06:40 ALT 25 U/L (7-52) 05/14/16 06:40 Alkaline Phosphatase 76 U/L (34-104) 05/14/16 06:40 Ammonia 50 umol/L (16-53) 05/13/16 21:10 Creatine Kinase 31 U/L (30-223) 05/13/16 21:10 CK-MB (CK-2) 0.6 ng/mL (0.6-6.3) 05/13/16 21:10 Troponin I 0.03 ng/mL (0.01-0.05) 05/13/16 21:10 B-Natriuretic Peptide 62.0 pg/mL (5.0-100.0) 05/13/16 21:10 Total Protein 8.0 gm/dL (6.0-8.3) 05/14/16 06:40 Albumin 3.4 gm/dL (4.2-5.5) L 05/14/16 06:40 Globulin 4.6 gm/dL 05/14/16 06:40 Albumin/Globulin Ratio 0.7 (1.0-1.8) L 05/14/16 06:40 Urine Source CLEAN C 05/13/16 21:30 Urine Color YELLOW 05/13/16 21:30 Urine Clarity HAZY (CLEAR) 05/13/16 21:30 Urine pH 5.5 05/13/16 21:30 Ur Specific [place] 1.015 (1.005-1.030) 05/13/16 21:30 Urine Protein 100 mg/dL (NEGATIVE) H 05/13/16 21:30 Urine Glucose (UA) NEGATIVE mg/dL (NEGATIVE) 05/13/16 21:30 Urine Ketones NEGATIVE mg/dL (NEGATIVE) 05/13/16 21:30 Urine Blood NEGATIVE (NEGATIVE) 05/13/16 21:30 Urine Nitrate NEGATIVE (NEGATIVE) 05/13/16 21:30 Urine Bilirubin NEGATIVE (NEGATIVE) 05/13/16 21:30 Urine Urobilinogen 0.2 E.U./dL (0.2 - 1.0) 05/13/16 21:30 Ur Leukocyte Esterase TRACE (NEGATIVE) H 05/13/16 21:30 Urine RBC 2-5 /hpf (0-5) H 05/13/16 21:30 Urine WBC 10-25 /hpf (0-5) H 05/13/16 21:30 Ur Epithelial Cells MODERATE /lpf (FEW) 05/13/16 21:30 Urine Bacteria MODERATE /hpf (NONE SEEN) 05/13/16 21:30 Urine Yeast MODERATE /hpf (NONE SEEN) H 05/13/16 21:30 Ur Random Sodium 67 mmol/L 05/15/16 03:13 Urine Creatinine 63.0 mg/dl (39.0-259.0) 05/15/16 03:13 Urine Microalbumin 566.8 ug/mL (Not Estab.) 05/13/16 21:30 Microalb/Creat Ratio 613.4 mg/g creat (0.0-30.0) H 05/13/16 21:30 Urine Opiates Screen NEGATIVE (NEGATIVE) 05/13/16 21:30 Ur Barbiturates Screen NEGATIVE (NEGATIVE) 05/13/16 21:30 Ur Phencyclidine Scrn NEGATIVE (NEGATIVE) 05/13/16 21:30 Amphetamines Screen NEGATIVE (NEGATIVE) 05/13/16 21:30 U Methamphetamines Scrn NEGATIVE (NEGATIVE) 05/13/16 21:30 U Benzodiazepines Scrn NEGATIVE (NEGATIVE) 05/13/16 21:30 U Cocaine Metab Screen NEGATIVE (NEGATIVE) 05/13/16 21:30 U Cannabinoids Screen NEGATIVE (NEGATIVE) 05/13/16 21:30 Ethyl Alcohol < 10 mg/dL (0-10) 05/13/16 21:10 - Physical Exam Vitals and I&O: Vital Signs Temp 98.3 F 05/16/16 07:51 Pulse 95 05/16/16 07:51 Resp 18 05/16/16 08:00 BP 108/50 05/16/16 07:51 Pulse Ox 99 05/16/16 07:51 Intake & Output 05/15/16 05/16/16 05/16/16 18:59 06:59 18:59 Intake Total 1110 720 0 Balance 1110 720 0 Intake: Intake, IV Amount 250 Vancomycin HCl 1 gm In 250 Sodium Chloride 0.9% 250 ml @ 165 mls/hr IV Q12H [facility] Rx#:[id number] Oral 0 Tube Feeding 660 440 Other 200 280 Other: # Voids 3 # Bowel Movements 2 2 0 Stool Characteristics Soft Liquid Mucoid Liquid Green Active Medications: Current Medications Acetaminophen (Tylenol 650mg/20.3ml Suspension) 500 mg GT Q4HR PRN PRN Reason: Pain (Severe) Stop: 07/12/16 23:17 Ascorbic Acid (Vitamin C) 500 mg GT DAILY [facility] Stop: 07/13/16 08:59 Last Admin: 05/16/16 09:17 Dose: 500 mg Bisacodyl (Dulcolax 10 Mg Supp) 10 mg RC DAILY PRN PRN Reason: Constipation Stop: 07/12/16 23:17 Doxazosin Mesylate (Cardura) 5 mg GT DAILY [facility] Stop: 07/13/16 08:59 Last Admin: 05/16/16 09:17 Dose: 5 mg Ferrous Sulfate (Iron) 300 mg GT DAILY [facility] Stop: 07/13/16 08:59 Last Admin: 05/16/16 09:17 Dose: 300 mg Fluconazole (Diflucan) 100 mg PO DAILY [facility] Stop: 07/13/16 17:59 Last Admin: 05/16/16 09:18 Dose: 100 mg Gabapentin (Neurontin) 100 mg GT HS [facility] Stop: 07/13/16 20:59 Last Admin: 05/15/16 22:32 Dose: 100 mg Heparin Sodium (Porcine) (Heparin) 5,000 units SUBQ Q12HR [facility] Stop: 07/13/16 08:59 Last Admin: 05/16/16 09:18 Dose: 5,000 units Dextrose/Sodium Chloride (D5-0.45ns) 1,000 mls @ 75 mls/hr IV .[id number] [facility] Stop: 07/12/16 23:14 Last Admin: 05/15/16 17:20 Dose: 75 mls/hr Vancomycin HCl 1 gm/ Sodium (Chloride) 250 mls @ 165 mls/hr IV Q12H [facility] Stop: 07/14/16 14:59 Last Admin: 05/16/16 02:55 Dose: 165 mls/hr Insulin Aspart (Novolog Insulin Sliding Scale) 0 units SUBQ ACHS [facility] PRN Reason: Protocol Stop: 07/13/16 07:29 Last Admin: 05/16/16 06:35 Dose: Not Given Insulin Detemir (Levemir Insulin) 10 units SUBQ HS [facility] PRN Reason: Protocol Stop: 07/13/16 20:59 Last Admin: 05/15/16 22:38 Dose: 10 units Insulin Detemir (Levemir Insulin) 15 units SUBQ QAM [facility] PRN Reason: Protocol Stop: 07/13/16 08:59 Last Admin: 05/16/16 09:20 Dose: Not Given Lactulose (Cephulac) 30 gm GT Q8HR [facility] Stop: 07/13/16 04:59 Last Admin: 05/16/16 06:35 Dose: Not Given Levetiracetam (Keppra) 500 mg GT Q12HR [facility] Stop: 07/13/16 08:59 Last Admin: 05/16/16 09:17 Dose: 500 mg Magnesium Hydroxide (Milk Of Magnesia) 30 ml GT HS PRN PRN Reason: Constipation Stop: 07/12/16 23:17 Miscellaneous (Vancomycin Iv Per Pharmacy) 1 ea [facility] PRN PRN PRN Reason: PROTOCOL Stop: 07/14/16 13:17 Mupirocin (Bactroban Oint) 1 appl NS BID [facility] Stop: 07/13/16 08:59 Last Admin: 05/16/16 09:25 Dose: 1 appl Pantoprazole Sodium (Protonix) 40 mg GT QDAC [facility] Stop: 07/13/16 06:29 Last Admin: 05/16/16 06:35 Dose: 40 mg Senna (Senna) 17.2 mg GT HS [facility] Stop: 07/13/16 20:59 Last Admin: 05/15/16 22:41 Dose: Not Given Sodium Phosphate (Fleet Enema) 135 ml RC Q2D PRN PRN Reason: Constipation Stop: 07/12/16 23:17 General: Alert, No acute distress HEENT: Atraumatic, EOMI, Mucous membr. moist/pink Neck: Supple, +2 carotid pulse wo bruit Cardiovascular: Regular rate, Normal S1, Normal S2 Lungs: Other (few rhonchi) Abdomen: Bowel sounds, Soft Extremities: Other (deformed fingers, feet), no Edema Neurological: Sensation intact Skin: no Rash - Procedures Procedures: Procedures Procedure Code Date CHANGE FEEDING DEVICE IN UP INTEST TRACT, WAREHOUSE TRAFFIC SUPERVISOR APPROACH [id number] 03/25/16 EXCISION OF DUODENUM, ENDO, DIAGN [id number] 03/25/16 EXCISION OF ESOPHAGOGASTRIC JUNCTION, ENDO, DIAGN [id number] 03/25/16 EXCISION OF STOMACH, PYLORUS, ENDO, DIAGN [id number] 03/25/16 EXCISION OF TRANSVERSE COLON, ENDO, DIAGN [id number] 03/25/16 EXTIRPATION OF MATTER FROM COMMON BILE DUCT, ENDO [id number] 01/28/16 FLUOROSCOPY OF BILE DUCTS USING LOW OSMOLAR CONTRAST [id number] 01/28/16 REMOVAL OF INTRALUMINAL DEVICE FROM HEPATOBILIARY DUCT, ENDO [id number] 01/28/16 Assessment/Plan - Problem List Patient Problems: All Active Problems Abdominal pain (Acute) R10.9 Acute hypernatremia (Acute) E87.0 Acute hypernatremia (Acute) E87.0 Acute renal disease (Acute) N28.9 Anemia (Acute) D64.9 Diabetes (Acute) E11.9 GERD (gastroesophageal reflux disease) (Acute) K21.9 Gout (Acute) M10.9 History of DVT (deep vein thrombosis) (Acute) Z86.718 Hyperkalemia (Acute) E87.5 Hypernatremia (Acute) E87.0 Malnutrition (Acute) E46 Metabolic encephalopathy (Acute) G93.41 Pressure ulcer of sacral region (Acute) - Assessment Assessment: BAN on CKD Left lower lobe HAP bact/yeast Cx UTI GPC septicemia type 2 DM Ess htn PUD anemia of ckd BPH malnutrition Functional quadriplegia - Plan Plan: kidney fnc gradually improving FENa 0.97% suggestive of pre renal component decrease ivf @ 70ml/hr start vanco for gpc septicemia, continue diflucan for yeast Cx uti f/u electrolytes repeat cxr: nad, renal us: no abnormalities
[2016-05-16] MEDS: D5-0.45NS 1,000 ML IV SCH (17:04)
--- NOTE | 2016-05-16 22:20 | History & Physical ---
A 70 -year-old male patient was admitted for increasing BUN and creatinine and severe dehydration, possible sepsis, UTI. HISTORY OF PRESENT ILLNESS: A 70-year-old male has been in [facility] several times, a resident of [facility]. Apparently had decreasing sensorium and had labs done, which showed increasing BUN and creatinine, was admitted through the ER, also found to have UTI and possible sepsis. The patient has a G-tube and noncommunicative. PHYSICAL EXAMINATION: HEAD: Normal. ENT: Normal. LUNGS: Bilateral rales. CARDIOVASCULAR SYSTEM: S1, S2 heard. ABDOMEN: Soft. Bowel sounds are heard. SYSTEM: Grossly normal. CENTRAL NERVOUS SYSTEM: Decreased sensorium. DIAGNOSES: Urinary tract infection, rule out urosepsis. ____ BUN and creatinine, increasing renal failure, history of renal failure, status post G-tube and I will be following the patient along with Dr. Hemphill, saw the patient for Nephrology and ID doctor, Dr. Vazquez will follow the patient. JOB# [id number]
--- NOTE | 2016-05-16 22:48 | Infectious Disease Prog Note ---
Infectious Disease Subjective - Review of Systems Service Date: 05/16/16 Subjective: No fever, no chills. Infectious Disease Objective - Results Result Diagrams: 05/16/16 06:15 05/16/16 06:15 Recent Labs: Laboratory Last Values WBC 6.7 Th/cmm (4.8-10.8) 05/16/16 06:15 RBC 3.10 Mil/cmm (3.80-5.80) L 05/16/16 06:15 Hgb 10.2 gm/dL (12.6-17.4) L 05/16/16 06:15 Hct 29.8 % (39.0-49.0) L 05/16/16 06:15 MCV 96.1 fl (80-99) 05/16/16 06:15 MCH 32.8 pg (27.0-31.0) H 05/16/16 06:15 MCHC Differential 34.1 pg (28.0-36.0) 05/16/16 06:15 RDW 14.9 % (11.5-20.0) 05/16/16 06:15 Plt Count 102 Th/cmm (150-400) L 05/16/16 06:15 MPV 10.2 fl 05/16/16 06:15 Neutrophils % 58.3 % (40.0-80.0) 05/16/16 06:15 Lymphocytes % 27.2 % (20.0-50.0) 05/16/16 06:15 Monocytes % 5.2 % (2.0-10.0) 05/16/16 06:15 Eosinophils % 9.2 % (0.0-5.0) H 05/16/16 06:15 Basophils % 0.1 % (0.0-2.0) 05/16/16 06:15 PT 10.4 SECONDS (9.5-11.5) 05/13/16 21:10 INR 1.05 (0.5-1.4) 05/13/16 21:10 PTT (Actin FS) 26.1 SECONDS (26.0-38.0) 05/13/16 21:10 Sodium 144 mEq/L (136-145) 05/16/16 06:15 Potassium 4.4 mEq/L (3.5-5.1) 05/16/16 06:15 Chloride 117 mEq/L (98-107) H 05/16/16 06:15 Carbon Dioxide 24.5 mEq/L (21.0-31.0) 05/16/16 06:15 Anion Gap 6.9 (7.0-16.0) L 05/16/16 06:15 BUN 32 mg/dL (7-25) H 05/16/16 06:15 Creatinine 1.3 mg/dL (0.7-1.3) 05/16/16 06:15 Est GFR ( Amer) > 60.0 ml/min 05/16/16 06:15 Est GFR (Non-Af Amer) 58.2 ml/min 05/16/16 06:15 BUN/Creatinine Ratio 24.6 05/16/16 06:15 Glucose 81 mg/dL (70-105) 05/16/16 06:15 POC Glucose 117 MG/DL (70 - 105) H 05/16/16 17:34 Hemoglobin A1c % 5.8 % (4.0-6.0) 05/13/16 20:10 Uric Acid 12.2 mg/dL (4.4-7.6) H 05/15/16 05:55 Calcium 9.0 mg/dL (8.6-10.3) 05/16/16 06:15 Phosphorus 3.7 mg/dL (2.5-5.0) 05/15/16 05:55 Magnesium 2.3 mg/dL (1.9-2.7) 05/15/16 05:55 Total Bilirubin 0.3 mg/dL (0.3-1.0) 05/14/16 06:40 AST 30 U/L (13-39) 05/14/16 06:40 ALT 25 U/L (7-52) 05/14/16 06:40 Alkaline Phosphatase 76 U/L (34-104) 05/14/16 06:40 Ammonia 50 umol/L (16-53) 05/13/16 21:10 Creatine Kinase 31 U/L (30-223) 05/13/16 21:10 CK-MB (CK-2) 0.6 ng/mL (0.6-6.3) 05/13/16 21:10 Troponin I 0.03 ng/mL (0.01-0.05) 05/13/16 21:10 B-Natriuretic Peptide 62.0 pg/mL (5.0-100.0) 05/13/16 21:10 Total Protein 8.0 gm/dL (6.0-8.3) 05/14/16 06:40 Albumin 3.4 gm/dL (4.2-5.5) L 05/14/16 06:40 Globulin 4.6 gm/dL 05/14/16 06:40 Albumin/Globulin Ratio 0.7 (1.0-1.8) L 05/14/16 06:40 Urine Source CLEAN C 05/13/16 21:30 Urine Color YELLOW 05/13/16 21:30 Urine Clarity HAZY (CLEAR) 05/13/16 21:30 Urine pH 5.5 05/13/16 21:30 Ur Specific [place] 1.015 (1.005-1.030) 05/13/16 21:30 Urine Protein 100 mg/dL (NEGATIVE) H 05/13/16 21:30 Urine Glucose (UA) NEGATIVE mg/dL (NEGATIVE) 05/13/16 21:30 Urine Ketones NEGATIVE mg/dL (NEGATIVE) 05/13/16 21:30 Urine Blood NEGATIVE (NEGATIVE) 05/13/16 21:30 Urine Nitrate NEGATIVE (NEGATIVE) 05/13/16 21:30 Urine Bilirubin NEGATIVE (NEGATIVE) 05/13/16 21:30 Urine Urobilinogen 0.2 E.U./dL (0.2 - 1.0) 05/13/16 21:30 Ur Leukocyte Esterase TRACE (NEGATIVE) H 05/13/16 21:30 Urine RBC 2-5 /hpf (0-5) H 05/13/16 21:30 Urine WBC 10-25 /hpf (0-5) H 05/13/16 21:30 Ur Epithelial Cells MODERATE /lpf (FEW) 05/13/16 21:30 Urine Bacteria MODERATE /hpf (NONE SEEN) 05/13/16 21:30 Urine Yeast MODERATE /hpf (NONE SEEN) H 05/13/16 21:30 Ur Random Sodium 67 mmol/L 05/15/16 03:13 Urine Creatinine 63.0 mg/dl (39.0-259.0) 05/15/16 03:13 Urine Microalbumin 566.8 ug/mL (Not Estab.) 05/13/16 21:30 Microalb/Creat Ratio 613.4 mg/g creat (0.0-30.0) H 05/13/16 21:30 Urine Opiates Screen NEGATIVE (NEGATIVE) 05/13/16 21:30 Ur Barbiturates Screen NEGATIVE (NEGATIVE) 05/13/16 21:30 Ur Phencyclidine Scrn NEGATIVE (NEGATIVE) 05/13/16 21:30 Amphetamines Screen NEGATIVE (NEGATIVE) 05/13/16 21:30 U Methamphetamines Scrn NEGATIVE (NEGATIVE) 05/13/16 21:30 U Benzodiazepines Scrn NEGATIVE (NEGATIVE) 05/13/16 21:30 U Cocaine Metab Screen NEGATIVE (NEGATIVE) 05/13/16 21:30 U Cannabinoids Screen NEGATIVE (NEGATIVE) 05/13/16 21:30 Ethyl Alcohol < 10 mg/dL (0-10) 05/13/16 21:10 - Physical Exam Vitals and I&O: Vital Signs Temp 98.6 F 05/16/16 20:00 Pulse 78 05/16/16 20:00 Resp 18 05/16/16 20:00 BP 128/89 05/16/16 20:00 Pulse Ox 93 05/16/16 20:00 Intake & Output 05/16/16 05/16/16 05/17/16 06:59 18:59 06:59 Intake Total 1970 600 Balance 1970 600 Intake: Intake, IV Amount 1250 D5-0.45NS 1,000 ml @ 75 1000 mls/hr IV .[id number] [facility] Rx #:[id number] Vancomycin HCl 1 gm In 250 Sodium Chloride 0.9% 250 ml @ 165 mls/hr IV Q12H [facility] Rx#:[id number] Oral 0 Tube Feeding 440 600 Other 280 Other: # Voids 3 # Bowel Movements 2 0 Stool Characteristics Liquid Mucoid Green Active Medications: Current Medications Acetaminophen (Tylenol 650mg/20.3ml Suspension) 500 mg GT Q4HR PRN PRN Reason: Pain (Severe) Stop: 07/12/16 23:17 Ascorbic Acid (Vitamin C) 500 mg GT DAILY [facility] Stop: 07/13/16 08:59 Last Admin: 05/16/16 09:17 Dose: 500 mg Bisacodyl (Dulcolax 10 Mg Supp) 10 mg RC DAILY PRN PRN Reason: Constipation Stop: 07/12/16 23:17 Doxazosin Mesylate (Cardura) 5 mg GT DAILY [facility] Stop: 07/13/16 08:59 Last Admin: 05/16/16 09:17 Dose: 5 mg Ferrous Sulfate (Iron) 300 mg GT DAILY [facility] Stop: 07/13/16 08:59 Last Admin: 05/16/16 09:17 Dose: 300 mg Fluconazole (Diflucan) 100 mg PO DAILY [facility] Stop: 07/13/16 17:59 Last Admin: 05/16/16 09:18 Dose: 100 mg Gabapentin (Neurontin) 100 mg GT HS [facility] Stop: 07/13/16 20:59 Last Admin: 05/15/16 22:32 Dose: 100 mg Heparin Sodium (Porcine) (Heparin) 5,000 units SUBQ Q12HR [facility] Stop: 07/13/16 08:59 Last Admin: 05/16/16 09:18 Dose: 5,000 units Dextrose/Sodium Chloride (D5-0.45ns) 1,000 mls @ 75 mls/hr IV .[id number] [facility] Stop: 07/12/16 23:14 Last Admin: 05/16/16 17:04 Dose: 75 mls/hr Vancomycin HCl 1 gm/ Sodium (Chloride) 250 mls @ 165 mls/hr IV Q12H [facility] Stop: 07/14/16 14:59 Last Admin: 05/16/16 16:58 Dose: 165 mls/hr Insulin Aspart (Novolog Insulin Sliding Scale) 0 units SUBQ ACHS [facility] PRN Reason: Protocol Stop: 07/13/16 07:29 Last Admin: 05/16/16 17:38 Dose: Not Given Insulin Detemir (Levemir Insulin) 10 units SUBQ HS [facility] PRN Reason: Protocol Stop: 07/13/16 20:59 Last Admin: 05/15/16 22:38 Dose: 10 units Insulin Detemir (Levemir Insulin) 15 units SUBQ QAM [facility] PRN Reason: Protocol Stop: 07/13/16 08:59 Last Admin: 05/16/16 09:20 Dose: Not Given Lactulose (Cephulac) 30 gm GT Q8HR [facility] Stop: 07/13/16 04:59 Last Admin: 05/16/16 12:31 Dose: 30 gm Levetiracetam (Keppra) 500 mg GT Q12HR [facility] Stop: 07/13/16 08:59 Last Admin: 05/16/16 09:17 Dose: 500 mg Magnesium Hydroxide (Milk Of Magnesia) 30 ml GT HS PRN PRN Reason: Constipation Stop: 07/12/16 23:17 Miscellaneous (Vancomycin Iv Per Pharmacy) 1 ea MC PRN PRN PRN Reason: PROTOCOL Stop: 07/14/16 13:17 Mupirocin (Bactroban Oint) 1 appl NS BID [facility] Stop: 07/13/16 08:59 Last Admin: 05/16/16 17:00 Dose: 1 appl Pantoprazole Sodium (Protonix) 40 mg GT QDAC [facility] Stop: 07/13/16 06:29 Last Admin: 05/16/16 06:35 Dose: 40 mg Senna (Senna) 17.2 mg GT HS [facility] Stop: 07/13/16 20:59 Last Admin: 05/15/16 22:41 Dose: Not Given Sodium Phosphate (Fleet Enema) 135 ml RC Q2D PRN PRN Reason: Constipation Stop: 07/12/16 23:17 General: no acute distress, well developed, well nourished HEENT: atraumatic, normocephalic, PERRLA Neck: supple, no thyromegaly, no lymphadenopathy Cardiovascular: S1S2, regular Lungs: clear to auscultation bilaterally, clear to percussion Abdomen: soft, no tender, no distended Extremities: no cyanosis, no clubbing, no edema Neurological: awake, alert Skin: intact - Procedures Procedures: Procedures Procedure Code Date CHANGE FEEDING DEVICE IN UP INTEST TRACT, CRYSTAL REPORT DEVELOPER APPROACH [id number] 03/25/16 EXCISION OF DUODENUM, ENDO, DIAGN [id number] 03/25/16 EXCISION OF ESOPHAGOGASTRIC JUNCTION, ENDO, DIAGN [id number] 03/25/16 EXCISION OF STOMACH, PYLORUS, ENDO, DIAGN [id number] 03/25/16 EXCISION OF TRANSVERSE COLON, ENDO, DIAGN [id number] 03/25/16 EXTIRPATION OF MATTER FROM COMMON BILE DUCT, ENDO [id number] 01/28/16 FLUOROSCOPY OF BILE DUCTS USING LOW OSMOLAR CONTRAST [id number] 01/28/16 REMOVAL OF INTRALUMINAL DEVICE FROM HEPATOBILIARY DUCT, ENDO [id number] 01/28/16 Infectious Disease Assmt/Plan - Problem List Patient Problems: All Active Problems Abdominal pain (Acute) R10.9 Acute hypernatremia (Acute) E87.0 Acute hypernatremia (Acute) E87.0 Acute renal disease (Acute) N28.9 Anemia (Acute) D64.9 Diabetes (Acute) E11.9 GERD (gastroesophageal reflux disease) (Acute) K21.9 Gout (Acute) M10.9 History of DVT (deep vein thrombosis) (Acute) Z86.718 Hyperkalemia (Acute) E87.5 Hypernatremia (Acute) E87.0 Malnutrition (Acute) E46 Metabolic encephalopathy (Acute) G93.41 Pressure ulcer of sacral region (Acute) - Assessment Assessment: 1. CN staph in blood is contaminant. 2. Pneumonia. 3. UTI. 4. BAN. 5. DM2 6. Dementia. - Plan Plan: DC vanco IV and continue rocehin. repeat blood cultures. Follow up on culture reports and take decision accordingly.
[2016-05-17] MEDS: Lactulose 10 Gm/15 mL 30mL UDC GT SCH ×2 (04:42→12:16)
[2016-05-17] MEDS: D5-0.45NS 1,000 ML IV SCH ×2 (06:15→18:41)
[2016-05-17] MEDS: Pantoprazole 40 mg/Packet GT SCH (06:18)
[2016-05-17] MEDS: Insulin Detemir 100 units/mL 10mL Vial SUBQ SCH ×2 (09:27→21:05)
[2016-05-17] MEDS: Ferrous Sulfate 300 MG/5 ML UDC GT SCH (09:27)
[2016-05-17] MEDS: Levetiracetam 500 mg/5mL 5mL UDC GT SCH ×2 (09:27→21:02)
[2016-05-17] MEDS: Multivitamin w/ Minerals Tab GT SCH (09:28)
--- NOTE | 2016-05-17 12:04 | General Progress Note ---
Subjective - Review of Systems Service Date: 05/17/16 Subjective: pt is getting better on antibiotics bun and creatinine coming down Objective - Results Result Diagrams: 05/16/16 06:15 05/16/16 06:15 Recent Labs: Laboratory Last Values WBC 6.7 Th/cmm (4.8-10.8) 05/16/16 06:15 RBC 3.10 Mil/cmm (3.80-5.80) L 05/16/16 06:15 Hgb 10.2 gm/dL (12.6-17.4) L 05/16/16 06:15 Hct 29.8 % (39.0-49.0) L 05/16/16 06:15 MCV 96.1 fl (80-99) 05/16/16 06:15 MCH 32.8 pg (27.0-31.0) H 05/16/16 06:15 MCHC Differential 34.1 pg (28.0-36.0) 05/16/16 06:15 RDW 14.9 % (11.5-20.0) 05/16/16 06:15 Plt Count 102 Th/cmm (150-400) L 05/16/16 06:15 MPV 10.2 fl 05/16/16 06:15 Neutrophils % 58.3 % (40.0-80.0) 05/16/16 06:15 Lymphocytes % 27.2 % (20.0-50.0) 05/16/16 06:15 Monocytes % 5.2 % (2.0-10.0) 05/16/16 06:15 Eosinophils % 9.2 % (0.0-5.0) H 05/16/16 06:15 Basophils % 0.1 % (0.0-2.0) 05/16/16 06:15 PT 10.4 SECONDS (9.5-11.5) 05/13/16 21:10 INR 1.05 (0.5-1.4) 05/13/16 21:10 PTT (Actin FS) 26.1 SECONDS (26.0-38.0) 05/13/16 21:10 Sodium 144 mEq/L (136-145) 05/16/16 06:15 Potassium 4.4 mEq/L (3.5-5.1) 05/16/16 06:15 Chloride 117 mEq/L (98-107) H 05/16/16 06:15 Carbon Dioxide 24.5 mEq/L (21.0-31.0) 05/16/16 06:15 Anion Gap 6.9 (7.0-16.0) L 05/16/16 06:15 BUN 32 mg/dL (7-25) H 05/16/16 06:15 Creatinine 1.3 mg/dL (0.7-1.3) 05/16/16 06:15 Est GFR ( Amer) > 60.0 ml/min 05/16/16 06:15 Est GFR (Non-Af Amer) 58.2 ml/min 05/16/16 06:15 BUN/Creatinine Ratio 24.6 05/16/16 06:15 Glucose 81 mg/dL (70-105) 05/16/16 06:15 POC Glucose 131 MG/DL (70 - 105) H 05/17/16 11:32 Hemoglobin A1c % 5.8 % (4.0-6.0) 05/13/16 20:10 Uric Acid 12.2 mg/dL (4.4-7.6) H 05/15/16 05:55 Calcium 9.0 mg/dL (8.6-10.3) 05/16/16 06:15 Phosphorus 3.7 mg/dL (2.5-5.0) 05/15/16 05:55 Magnesium 2.3 mg/dL (1.9-2.7) 05/15/16 05:55 Total Bilirubin 0.3 mg/dL (0.3-1.0) 05/14/16 06:40 AST 30 U/L (13-39) 05/14/16 06:40 ALT 25 U/L (7-52) 05/14/16 06:40 Alkaline Phosphatase 76 U/L (34-104) 05/14/16 06:40 Ammonia 50 umol/L (16-53) 05/13/16 21:10 Creatine Kinase 31 U/L (30-223) 05/13/16 21:10 CK-MB (CK-2) 0.6 ng/mL (0.6-6.3) 05/13/16 21:10 Troponin I 0.03 ng/mL (0.01-0.05) 05/13/16 21:10 B-Natriuretic Peptide 62.0 pg/mL (5.0-100.0) 05/13/16 21:10 Total Protein 8.0 gm/dL (6.0-8.3) 05/14/16 06:40 Albumin 3.4 gm/dL (4.2-5.5) L 05/14/16 06:40 Globulin 4.6 gm/dL 05/14/16 06:40 Albumin/Globulin Ratio 0.7 (1.0-1.8) L 05/14/16 06:40 Urine Source CLEAN C 05/13/16 21:30 Urine Color YELLOW 05/13/16 21:30 Urine Clarity HAZY (CLEAR) 05/13/16 21:30 Urine pH 5.5 05/13/16 21:30 Ur Specific [place] 1.015 (1.005-1.030) 05/13/16 21:30 Urine Protein 100 mg/dL (NEGATIVE) H 05/13/16 21:30 Urine Glucose (UA) NEGATIVE mg/dL (NEGATIVE) 05/13/16 21:30 Urine Ketones NEGATIVE mg/dL (NEGATIVE) 05/13/16 21:30 Urine Blood NEGATIVE (NEGATIVE) 05/13/16 21:30 Urine Nitrate NEGATIVE (NEGATIVE) 05/13/16 21:30 Urine Bilirubin NEGATIVE (NEGATIVE) 05/13/16 21:30 Urine Urobilinogen 0.2 E.U./dL (0.2 - 1.0) 05/13/16 21:30 Ur Leukocyte Esterase TRACE (NEGATIVE) H 05/13/16 21:30 Urine RBC 2-5 /hpf (0-5) H 05/13/16 21:30 Urine WBC 10-25 /hpf (0-5) H 05/13/16 21:30 Ur Epithelial Cells MODERATE /lpf (FEW) 05/13/16 21:30 Urine Bacteria MODERATE /hpf (NONE SEEN) 05/13/16 21:30 Urine Yeast MODERATE /hpf (NONE SEEN) H 05/13/16 21:30 Ur Random Sodium 67 mmol/L 05/15/16 03:13 Urine Creatinine 63.0 mg/dl (39.0-259.0) 05/15/16 03:13 Urine Microalbumin 566.8 ug/mL (Not Estab.) 05/13/16 21:30 Microalb/Creat Ratio 613.4 mg/g creat (0.0-30.0) H 05/13/16 21:30 Urine Opiates Screen NEGATIVE (NEGATIVE) 05/13/16 21:30 Ur Barbiturates Screen NEGATIVE (NEGATIVE) 05/13/16 21:30 Ur Phencyclidine Scrn NEGATIVE (NEGATIVE) 05/13/16 21:30 Amphetamines Screen NEGATIVE (NEGATIVE) 05/13/16 21:30 U Methamphetamines Scrn NEGATIVE (NEGATIVE) 05/13/16 21:30 U Benzodiazepines Scrn NEGATIVE (NEGATIVE) 05/13/16 21:30 U Cocaine Metab Screen NEGATIVE (NEGATIVE) 05/13/16 21:30 U Cannabinoids Screen NEGATIVE (NEGATIVE) 05/13/16 21:30 Ethyl Alcohol < 10 mg/dL (0-10) 05/13/16 21:10 - Physical Exam Vitals and I&O: Vital Signs Temp 98.2 F 05/17/16 11:41 Pulse 59 05/17/16 11:41 Resp 20 05/17/16 12:00 BP 126/58 05/17/16 11:41 Pulse Ox 100 05/17/16 11:41 Intake & Output 05/16/16 05/17/16 05/17/16 18:59 06:59 18:59 Intake Total 600 1708.75 Balance 600 1708.75 Intake: Intake, IV Amount 988.75 D5-0.45NS 1,000 ml @ 75 988.75 mls/hr IV .[id number] [facility] Rx #:[id number] Oral 0 Tube Feeding 600 720 Other: # Voids 3 # Bowel Movements 0 Stool Characteristics Mucoid Brown Active Medications: Current Medications Acetaminophen (Tylenol 650mg/20.3ml Suspension) 500 mg GT Q4HR PRN PRN Reason: Pain (Severe) Stop: 07/12/16 23:17 Last Admin: 05/17/16 04:43 Dose: 500 mg Ascorbic Acid (Vitamin C) 500 mg GT DAILY [facility] Stop: 07/13/16 08:59 Last Admin: 05/17/16 09:28 Dose: 500 mg Bisacodyl (Dulcolax 10 Mg Supp) 10 mg RC DAILY PRN PRN Reason: Constipation Stop: 07/12/16 23:17 Doxazosin Mesylate (Cardura) 5 mg GT DAILY [facility] Stop: 07/13/16 08:59 Last Admin: 05/17/16 09:28 Dose: 5 mg Ferrous Sulfate (Iron) 300 mg GT DAILY [facility] Stop: 07/13/16 08:59 Last Admin: 05/17/16 09:27 Dose: 300 mg Fluconazole (Diflucan) 100 mg PO DAILY [facility] Stop: 07/13/16 17:59 Last Admin: 05/17/16 09:28 Dose: 100 mg Gabapentin (Neurontin) 100 mg GT HS [facility] Stop: 07/13/16 20:59 Last Admin: 05/16/16 22:42 Dose: 100 mg Heparin Sodium (Porcine) (Heparin) 5,000 units SUBQ Q12HR [facility] Stop: 07/13/16 08:59 Last Admin: 05/17/16 09:28 Dose: 5,000 units Dextrose/Sodium Chloride (D5-0.45ns) 1,000 mls @ 75 mls/hr IV .[id number] [facility] Stop: 07/12/16 23:14 Last Admin: 05/17/16 06:15 Dose: 75 mls/hr Insulin Aspart (Novolog Insulin Sliding Scale) 0 units SUBQ ACHS [facility] PRN Reason: Protocol Stop: 07/13/16 07:29 Last Admin: 05/16/16 22:36 Dose: 1,000 units Insulin Detemir (Levemir Insulin) 10 units SUBQ HS [facility] PRN Reason: Protocol Stop: 07/13/16 20:59 Last Admin: 05/16/16 22:38 Dose: 10 units Insulin Detemir (Levemir Insulin) 15 units SUBQ QAM [facility] PRN Reason: Protocol Stop: 07/13/16 08:59 Last Admin: 05/17/16 09:27 Dose: 15 unit Lactulose (Cephulac) 30 gm GT Q8HR [facility] Stop: 07/13/16 04:59 Last Admin: 05/17/16 04:42 Dose: 30 gm Levetiracetam (Keppra) 500 mg GT Q12HR [facility] Stop: 07/13/16 08:59 Last Admin: 05/17/16 09:27 Dose: 500 mg Magnesium Hydroxide (Milk Of Magnesia) 30 ml GT HS PRN PRN Reason: Constipation Stop: 07/12/16 23:17 Mupirocin (Bactroban Oint) 1 appl NS BID [facility] Stop: 07/13/16 08:59 Last Admin: 05/17/16 09:28 Dose: 1 appl Pantoprazole Sodium (Protonix) 40 mg GT QDAC [facility] Stop: 07/13/16 06:29 Last Admin: 05/17/16 06:18 Dose: 40 mg Senna (Senna) 17.2 mg GT HS [facility] Stop: 07/13/16 20:59 Last Admin: 05/16/16 22:49 Dose: Not Given Sodium Phosphate (Fleet Enema) 135 ml RC Q2D PRN PRN Reason: Constipation Stop: 07/12/16 23:17 General: Alert, Cooperative HEENT: Atraumatic, PERRLA Neck: Supple Cardiovascular: Regular rate Lungs: Clear to auscultation Abdomen: Bowel sounds, Soft Extremities: Other (s/p peg) Psych/Mental Status: Mood NL - Procedures Procedures: Procedures Procedure Code Date CHANGE FEEDING DEVICE IN UP INTEST TRACT, BUSINESS MANAGEMENT MANAGER APPROACH [id number] 03/25/16 EXCISION OF DUODENUM, ENDO, DIAGN [id number] 03/25/16 EXCISION OF ESOPHAGOGASTRIC JUNCTION, ENDO, DIAGN [id number] 03/25/16 EXCISION OF STOMACH, PYLORUS, ENDO, DIAGN [id number] 03/25/16 EXCISION OF TRANSVERSE COLON, ENDO, DIAGN [id number] 03/25/16 EXTIRPATION OF MATTER FROM COMMON BILE DUCT, ENDO [id number] 01/28/16 FLUOROSCOPY OF BILE DUCTS USING LOW OSMOLAR CONTRAST [id number] 01/28/16 REMOVAL OF INTRALUMINAL DEVICE FROM HEPATOBILIARY DUCT, ENDO [id number] 01/28/16 Assessment/Plan - Problem List Patient Problems: All Active Problems Abdominal pain (Acute) R10.9 Acute hypernatremia (Acute) E87.0 Acute hypernatremia (Acute) E87.0 Acute renal disease (Acute) N28.9 Anemia (Acute) D64.9 Diabetes (Acute) E11.9 GERD (gastroesophageal reflux disease) (Acute) K21.9 Gout (Acute) M10.9 History of DVT (deep vein thrombosis) (Acute) Z86.718 Hyperkalemia (Acute) E87.5 Hypernatremia (Acute) E87.0 Malnutrition (Acute) E46 Metabolic encephalopathy (Acute) G93.41 Pressure ulcer of sacral region (Acute) - Plan Plan: pt treated for uti and prerenal azatimia
[2016-05-17] MEDS: INSULIN ASPART SLIDING SCALE 100 UNITS/ML UNIT SUBQ SCH ×3 (12:16→23:12)
--- NOTE | 2016-05-17 13:39 | General Progress Note ---
Subjective - Review of Systems Service Date: 05/17/16 Subjective: more awake, comfortable, verbal today Objective - Results Result Diagrams: 05/16/16 06:15 05/16/16 06:15 Recent Labs: Laboratory Last Values WBC 6.7 Th/cmm (4.8-10.8) 05/16/16 06:15 RBC 3.10 Mil/cmm (3.80-5.80) L 05/16/16 06:15 Hgb 10.2 gm/dL (12.6-17.4) L 05/16/16 06:15 Hct 29.8 % (39.0-49.0) L 05/16/16 06:15 MCV 96.1 fl (80-99) 05/16/16 06:15 MCH 32.8 pg (27.0-31.0) H 05/16/16 06:15 MCHC Differential 34.1 pg (28.0-36.0) 05/16/16 06:15 RDW 14.9 % (11.5-20.0) 05/16/16 06:15 Plt Count 102 Th/cmm (150-400) L 05/16/16 06:15 MPV 10.2 fl 05/16/16 06:15 Neutrophils % 58.3 % (40.0-80.0) 05/16/16 06:15 Lymphocytes % 27.2 % (20.0-50.0) 05/16/16 06:15 Monocytes % 5.2 % (2.0-10.0) 05/16/16 06:15 Eosinophils % 9.2 % (0.0-5.0) H 05/16/16 06:15 Basophils % 0.1 % (0.0-2.0) 05/16/16 06:15 PT 10.4 SECONDS (9.5-11.5) 05/13/16 21:10 INR 1.05 (0.5-1.4) 05/13/16 21:10 PTT (Actin FS) 26.1 SECONDS (26.0-38.0) 05/13/16 21:10 Sodium 144 mEq/L (136-145) 05/16/16 06:15 Potassium 4.4 mEq/L (3.5-5.1) 05/16/16 06:15 Chloride 117 mEq/L (98-107) H 05/16/16 06:15 Carbon Dioxide 24.5 mEq/L (21.0-31.0) 05/16/16 06:15 Anion Gap 6.9 (7.0-16.0) L 05/16/16 06:15 BUN 32 mg/dL (7-25) H 05/16/16 06:15 Creatinine 1.3 mg/dL (0.7-1.3) 05/16/16 06:15 Est GFR ( Amer) > 60.0 ml/min 05/16/16 06:15 Est GFR (Non-Af Amer) 58.2 ml/min 05/16/16 06:15 BUN/Creatinine Ratio 24.6 05/16/16 06:15 Glucose 81 mg/dL (70-105) 05/16/16 06:15 POC Glucose 131 MG/DL (70 - 105) H 05/17/16 11:32 Hemoglobin A1c % 5.8 % (4.0-6.0) 05/13/16 20:10 Uric Acid 12.2 mg/dL (4.4-7.6) H 05/15/16 05:55 Calcium 9.0 mg/dL (8.6-10.3) 05/16/16 06:15 Phosphorus 3.7 mg/dL (2.5-5.0) 05/15/16 05:55 Magnesium 2.3 mg/dL (1.9-2.7) 05/15/16 05:55 Total Bilirubin 0.3 mg/dL (0.3-1.0) 05/14/16 06:40 AST 30 U/L (13-39) 05/14/16 06:40 ALT 25 U/L (7-52) 05/14/16 06:40 Alkaline Phosphatase 76 U/L (34-104) 05/14/16 06:40 Ammonia 50 umol/L (16-53) 05/13/16 21:10 Creatine Kinase 31 U/L (30-223) 05/13/16 21:10 CK-MB (CK-2) 0.6 ng/mL (0.6-6.3) 05/13/16 21:10 Troponin I 0.03 ng/mL (0.01-0.05) 05/13/16 21:10 B-Natriuretic Peptide 62.0 pg/mL (5.0-100.0) 05/13/16 21:10 Total Protein 8.0 gm/dL (6.0-8.3) 05/14/16 06:40 Albumin 3.4 gm/dL (4.2-5.5) L 05/14/16 06:40 Globulin 4.6 gm/dL 05/14/16 06:40 Albumin/Globulin Ratio 0.7 (1.0-1.8) L 05/14/16 06:40 Urine Source CLEAN C 05/13/16 21:30 Urine Color YELLOW 05/13/16 21:30 Urine Clarity HAZY (CLEAR) 05/13/16 21:30 Urine pH 5.5 05/13/16 21:30 Ur Specific [place] 1.015 (1.005-1.030) 05/13/16 21:30 Urine Protein 100 mg/dL (NEGATIVE) H 05/13/16 21:30 Urine Glucose (UA) NEGATIVE mg/dL (NEGATIVE) 05/13/16 21:30 Urine Ketones NEGATIVE mg/dL (NEGATIVE) 05/13/16 21:30 Urine Blood NEGATIVE (NEGATIVE) 05/13/16 21:30 Urine Nitrate NEGATIVE (NEGATIVE) 05/13/16 21:30 Urine Bilirubin NEGATIVE (NEGATIVE) 05/13/16 21:30 Urine Urobilinogen 0.2 E.U./dL (0.2 - 1.0) 05/13/16 21:30 Ur Leukocyte Esterase TRACE (NEGATIVE) H 05/13/16 21:30 Urine RBC 2-5 /hpf (0-5) H 05/13/16 21:30 Urine WBC 10-25 /hpf (0-5) H 05/13/16 21:30 Ur Epithelial Cells MODERATE /lpf (FEW) 05/13/16 21:30 Urine Bacteria MODERATE /hpf (NONE SEEN) 05/13/16 21:30 Urine Yeast MODERATE /hpf (NONE SEEN) H 05/13/16 21:30 Ur Random Sodium 67 mmol/L 05/15/16 03:13 Urine Creatinine 63.0 mg/dl (39.0-259.0) 05/15/16 03:13 Urine Microalbumin 566.8 ug/mL (Not Estab.) 05/13/16 21:30 Microalb/Creat Ratio 613.4 mg/g creat (0.0-30.0) H 05/13/16 21:30 Urine Opiates Screen NEGATIVE (NEGATIVE) 05/13/16 21:30 Ur Barbiturates Screen NEGATIVE (NEGATIVE) 05/13/16 21:30 Ur Phencyclidine Scrn NEGATIVE (NEGATIVE) 05/13/16 21:30 Amphetamines Screen NEGATIVE (NEGATIVE) 05/13/16 21:30 U Methamphetamines Scrn NEGATIVE (NEGATIVE) 05/13/16 21:30 U Benzodiazepines Scrn NEGATIVE (NEGATIVE) 05/13/16 21:30 U Cocaine Metab Screen NEGATIVE (NEGATIVE) 05/13/16 21:30 U Cannabinoids Screen NEGATIVE (NEGATIVE) 05/13/16 21:30 Ethyl Alcohol < 10 mg/dL (0-10) 05/13/16 21:10 - Physical Exam Vitals and I&O: Vital Signs Temp 98.2 F 05/17/16 11:41 Pulse 59 05/17/16 11:41 Resp 20 05/17/16 12:00 BP 126/58 05/17/16 11:41 Pulse Ox 100 05/17/16 11:41 Intake & Output 05/16/16 05/17/16 05/17/16 18:59 06:59 18:59 Intake Total 600 1708.75 Balance 600 1708.75 Intake: Intake, IV Amount 988.75 D5-0.45NS 1,000 ml @ 75 988.75 mls/hr IV .[id number] [facility] Rx #:[id number] Oral 0 Tube Feeding 600 720 Other: # Voids 3 # Bowel Movements 0 Stool Characteristics Mucoid Brown Active Medications: Current Medications Acetaminophen (Tylenol 650mg/20.3ml Suspension) 500 mg GT Q4HR PRN PRN Reason: Pain (Severe) Stop: 07/12/16 23:17 Last Admin: 05/17/16 04:43 Dose: 500 mg Ascorbic Acid (Vitamin C) 500 mg GT DAILY [facility] Stop: 07/13/16 08:59 Last Admin: 05/17/16 09:28 Dose: 500 mg Bisacodyl (Dulcolax 10 Mg Supp) 10 mg RC DAILY PRN PRN Reason: Constipation Stop: 07/12/16 23:17 Doxazosin Mesylate (Cardura) 5 mg GT DAILY [facility] Stop: 07/13/16 08:59 Last Admin: 05/17/16 09:28 Dose: 5 mg Ferrous Sulfate (Iron) 300 mg GT DAILY [facility] Stop: 07/13/16 08:59 Last Admin: 05/17/16 09:27 Dose: 300 mg Fluconazole (Diflucan) 100 mg PO DAILY [facility] Stop: 07/13/16 17:59 Last Admin: 05/17/16 09:28 Dose: 100 mg Gabapentin (Neurontin) 100 mg GT HS [facility] Stop: 07/13/16 20:59 Last Admin: 05/16/16 22:42 Dose: 100 mg Heparin Sodium (Porcine) (Heparin) 5,000 units SUBQ Q12HR [facility] Stop: 07/13/16 08:59 Last Admin: 05/17/16 09:28 Dose: 5,000 units Dextrose/Sodium Chloride (D5-0.45ns) 1,000 mls @ 75 mls/hr IV .[id number] [facility] Stop: 07/12/16 23:14 Last Admin: 05/17/16 06:15 Dose: 75 mls/hr Insulin Aspart (Novolog Insulin Sliding Scale) 0 units SUBQ ACHS RICH PRN Reason: Protocol Stop: 07/13/16 07:29 Last Admin: 05/17/16 12:16 Dose: 2 units Insulin Detemir (Levemir Insulin) 10 units SUBQ HS RICH PRN Reason: Protocol Stop: 07/13/16 20:59 Last Admin: 05/16/16 22:38 Dose: 10 units Insulin Detemir (Levemir Insulin) 15 units SUBQ QAM RICH PRN Reason: Protocol Stop: 07/13/16 08:59 Last Admin: 05/17/16 09:27 Dose: 15 unit Lactulose (Cephulac) 30 gm GT Q8HR [facility] Stop: 07/13/16 04:59 Last Admin: 05/17/16 12:16 Dose: 30 gm Levetiracetam (Keppra) 500 mg GT Q12HR [facility] Stop: 07/13/16 08:59 Last Admin: 05/17/16 09:27 Dose: 500 mg Magnesium Hydroxide (Milk Of Magnesia) 30 ml GT HS PRN PRN Reason: Constipation Stop: 07/12/16 23:17 Mupirocin (Bactroban Oint) 1 appl NS BID [facility] Stop: 07/13/16 08:59 Last Admin: 05/17/16 09:28 Dose: 1 appl Pantoprazole Sodium (Protonix) 40 mg GT QDAC [facility] Stop: 07/13/16 06:29 Last Admin: 05/17/16 06:18 Dose: 40 mg Senna (Senna) 17.2 mg GT HS RICH Stop: 07/13/16 20:59 Last Admin: 05/16/16 22:49 Dose: Not Given Sodium Phosphate (Fleet Enema) 135 ml RC Q2D PRN PRN Reason: Constipation Stop: 07/12/16 23:17 General: Alert, No acute distress HEENT: Atraumatic, EOMI, Mucous membr. moist/pink Neck: Supple, +2 carotid pulse wo bruit Cardiovascular: Regular rate, Normal S1, Normal S2 Lungs: Clear to auscultation Abdomen: Bowel sounds, Soft Extremities: Other (defomities of fingers, foot), no Edema Neurological: Sensation intact Skin: no Rash - Procedures Procedures: Procedures Procedure Code Date CHANGE FEEDING DEVICE IN UP INTEST TRACT, [employer]OR APPROACH [id number] 03/25/16 EXCISION OF DUODENUM, ENDO, DIAGN [id number] 03/25/16 EXCISION OF ESOPHAGOGASTRIC JUNCTION, ENDO, DIAGN [id number] 03/25/16 EXCISION OF STOMACH, PYLORUS, ENDO, DIAGN [id number] 03/25/16 EXCISION OF TRANSVERSE COLON, ENDO, DIAGN [id number] 03/25/16 EXTIRPATION OF MATTER FROM COMMON BILE DUCT, ENDO [id number] 01/28/16 FLUOROSCOPY OF BILE DUCTS USING LOW OSMOLAR CONTRAST [id number] 01/28/16 REMOVAL OF INTRALUMINAL DEVICE FROM HEPATOBILIARY DUCT, ENDO [id number] 01/28/16 Assessment/Plan - Problem List Patient Problems: All Active Problems uti (Acute) Abdominal pain (Acute) R10.9 Acute hypernatremia (Acute) E87.0 Acute hypernatremia (Acute) E87.0 Acute renal disease (Acute) N28.9 Anemia (Acute) D64.9 Diabetes (Acute) E11.9 GERD (gastroesophageal reflux disease) (Acute) K21.9 Gout (Acute) M10.9 History of DVT (deep vein thrombosis) (Acute) Z86.718 Hyperkalemia (Acute) E87.5 Hypernatremia (Acute) E87.0 Malnutrition (Acute) E46 Metabolic encephalopathy (Acute) G93.41 Pressure ulcer of sacral region (Acute) - Assessment Assessment: BAN on CKD Left lower lobe HAP bact/yeast Cx UTI GPC septicemia type 2 DM Ess htn PUD anemia of ckd BPH malnutrition Functional quadriplegia - Plan Plan: kidney fnc gradually improving FENa 0.97% suggestive of pre renal component decrease ivf @ 70ml/hr start vanco for gpc septicemia, continue diflucan for yeast Cx uti f/u electrolytes repeat cxr: nad, renal us: no abnormalities
[2016-05-18] MEDS ORDERED: GLUCAGON HCl 1 MG KIT IM PRN (06:06)
[2016-05-18] MEDS ORDERED: Dextrose 50% 50 mL Abboject IVP PRN (06:06)
[2016-05-18] MEDS: D5-0.45NS 1,000 ML IV SCH (06:14)
[2016-05-18] MEDS: Pantoprazole 40 mg/Packet GT SCH (06:14)
[2016-05-18 07:44] LABS: ANION GAP 8.1 (7.0-16.0); BUN - UREA NITROGEN 26 mg/dL (7-25); BUN/CREATININE RATIO 23.6; CALCIUM SERUM 8.7 mg/dL (8.6-10.3); CARBON DIOXIDE 23.7 mEq/L (21.0-31.0); CHLORIDE 110 mEq/L (98-107); CREATININE - SERUM 1.1 mg/dL (0.7-1.3); GLUCOSE 196 mg/dL (70-105); POTASSIUM SERUM 3.8 mEq/L (3.5-5.1); SODIUM SERUM 138 mEq/L (136-145)
--- NOTE | 2016-05-18 07:58 | General Progress Note ---
Subjective - Review of Systems Subjective: c/o weakness Objective - Results Result Diagrams: 05/16/16 06:15 05/18/16 07:00 Recent Labs: Laboratory Last Values WBC 6.7 Th/cmm (4.8-10.8) 05/16/16 06:15 RBC 3.10 Mil/cmm (3.80-5.80) L 05/16/16 06:15 Hgb 10.2 gm/dL (12.6-17.4) L 05/16/16 06:15 Hct 29.8 % (39.0-49.0) L 05/16/16 06:15 MCV 96.1 fl (80-99) 05/16/16 06:15 MCH 32.8 pg (27.0-31.0) H 05/16/16 06:15 MCHC Differential 34.1 pg (28.0-36.0) 05/16/16 06:15 RDW 14.9 % (11.5-20.0) 05/16/16 06:15 Plt Count 102 Th/cmm (150-400) L 05/16/16 06:15 MPV 10.2 fl 05/16/16 06:15 Neutrophils % 58.3 % (40.0-80.0) 05/16/16 06:15 Lymphocytes % 27.2 % (20.0-50.0) 05/16/16 06:15 Monocytes % 5.2 % (2.0-10.0) 05/16/16 06:15 Eosinophils % 9.2 % (0.0-5.0) H 05/16/16 06:15 Basophils % 0.1 % (0.0-2.0) 05/16/16 06:15 PT 10.4 SECONDS (9.5-11.5) 05/13/16 21:10 INR 1.05 (0.5-1.4) 05/13/16 21:10 PTT (Actin FS) 26.1 SECONDS (26.0-38.0) 05/13/16 21:10 Sodium 138 mEq/L (136-145) 05/18/16 07:00 Potassium 3.8 mEq/L (3.5-5.1) 05/18/16 07:00 Chloride 110 mEq/L (98-107) H 05/18/16 07:00 Carbon Dioxide 23.7 mEq/L (21.0-31.0) 05/18/16 07:00 Anion Gap 8.1 (7.0-16.0) 05/18/16 07:00 BUN 26 mg/dL (7-25) H 05/18/16 07:00 Creatinine 1.1 mg/dL (0.7-1.3) 05/18/16 07:00 Est GFR ( Amer) > 60.0 ml/min 05/18/16 07:00 Est GFR (Non-Af Amer) > 60.0 ml/min 05/18/16 07:00 BUN/Creatinine Ratio 23.6 05/18/16 07:00 Glucose 196 mg/dL (70-105) H 05/18/16 07:00 POC Glucose 194 MG/DL (70 - 105) H 05/18/16 07:06 Hemoglobin A1c % 5.8 % (4.0-6.0) 05/13/16 20:10 Uric Acid 12.2 mg/dL (4.4-7.6) H 05/15/16 05:55 Calcium 8.7 mg/dL (8.6-10.3) 05/18/16 07:00 Phosphorus 3.7 mg/dL (2.5-5.0) 05/15/16 05:55 Magnesium 2.3 mg/dL (1.9-2.7) 05/15/16 05:55 Total Bilirubin 0.3 mg/dL (0.3-1.0) 05/14/16 06:40 AST 30 U/L (13-39) 05/14/16 06:40 ALT 25 U/L (7-52) 05/14/16 06:40 Alkaline Phosphatase 76 U/L (34-104) 05/14/16 06:40 Ammonia 50 umol/L (16-53) 05/13/16 21:10 Creatine Kinase 31 U/L (30-223) 05/13/16 21:10 CK-MB (CK-2) 0.6 ng/mL (0.6-6.3) 05/13/16 21:10 Troponin I 0.03 ng/mL (0.01-0.05) 05/13/16 21:10 B-Natriuretic Peptide 62.0 pg/mL (5.0-100.0) 05/13/16 21:10 Total Protein 8.0 gm/dL (6.0-8.3) 05/14/16 06:40 Albumin 3.4 gm/dL (4.2-5.5) L 05/14/16 06:40 Globulin 4.6 gm/dL 05/14/16 06:40 Albumin/Globulin Ratio 0.7 (1.0-1.8) L 05/14/16 06:40 Urine Source CLEAN C 05/13/16 21:30 Urine Color YELLOW 05/13/16 21:30 Urine Clarity HAZY (CLEAR) 05/13/16 21:30 Urine pH 5.5 05/13/16 21:30 Ur Specific [place] 1.015 (1.005-1.030) 05/13/16 21:30 Urine Protein 100 mg/dL (NEGATIVE) H 05/13/16 21:30 Urine Glucose (UA) NEGATIVE mg/dL (NEGATIVE) 05/13/16 21:30 Urine Ketones NEGATIVE mg/dL (NEGATIVE) 05/13/16 21:30 Urine Blood NEGATIVE (NEGATIVE) 05/13/16 21:30 Urine Nitrate NEGATIVE (NEGATIVE) 05/13/16 21:30 Urine Bilirubin NEGATIVE (NEGATIVE) 05/13/16 21:30 Urine Urobilinogen 0.2 E.U./dL (0.2 - 1.0) 05/13/16 21:30 Ur Leukocyte Esterase TRACE (NEGATIVE) H 05/13/16 21:30 Urine RBC 2-5 /hpf (0-5) H 05/13/16 21:30 Urine WBC 10-25 /hpf (0-5) H 05/13/16 21:30 Ur Epithelial Cells MODERATE /lpf (FEW) 05/13/16 21:30 Urine Bacteria MODERATE /hpf (NONE SEEN) 05/13/16 21:30 Urine Yeast MODERATE /hpf (NONE SEEN) H 05/13/16 21:30 Ur Random Sodium 67 mmol/L 05/15/16 03:13 Urine Creatinine 63.0 mg/dl (39.0-259.0) 05/15/16 03:13 Urine Microalbumin 566.8 ug/mL (Not Estab.) 05/13/16 21:30 Microalb/Creat Ratio 613.4 mg/g creat (0.0-30.0) H 05/13/16 21:30 Vancomycin Trough 18.9 ug/mL (10-20) 05/17/16 13:59 Urine Opiates Screen NEGATIVE (NEGATIVE) 05/13/16 21:30 Ur Barbiturates Screen NEGATIVE (NEGATIVE) 05/13/16 21:30 Ur Phencyclidine Scrn NEGATIVE (NEGATIVE) 05/13/16 21:30 Amphetamines Screen NEGATIVE (NEGATIVE) 05/13/16 21:30 U Methamphetamines Scrn NEGATIVE (NEGATIVE) 05/13/16 21:30 U Benzodiazepines Scrn NEGATIVE (NEGATIVE) 05/13/16 21:30 U Cocaine Metab Screen NEGATIVE (NEGATIVE) 05/13/16 21:30 U Cannabinoids Screen NEGATIVE (NEGATIVE) 05/13/16 21:30 Ethyl Alcohol < 10 mg/dL (0-10) 05/13/16 21:10 - Physical Exam Vitals and I&O: Vital Signs Temp 97.9 F 05/18/16 04:00 Pulse 71 05/18/16 04:00 Resp 18 05/18/16 04:00 BP 155/70 05/18/16 04:00 Pulse Ox 100 05/18/16 04:00 Intake & Output 05/17/16 05/18/16 05/18/16 18:59 06:59 18:59 Intake Total 2092.5 1036.25 Balance 2092.5 1036.25 Intake: Intake, IV Amount 932.5 866.25 D5-0.45NS 1,000 ml @ 75 932.5 866.25 mls/hr IV .[id number] [facility] Rx #:[id number] Oral 0 Tube Feeding 1160 110 Other 60 Other: # Voids 5 1 # Bowel Movements 3 Stool Characteristics Brown Active Medications: Current Medications Acetaminophen (Tylenol 650mg/20.3ml Suspension) 500 mg GT Q4HR PRN PRN Reason: Pain (Severe) Stop: 07/12/16 23:17 Last Admin: 05/17/16 04:43 Dose: 500 mg Ascorbic Acid (Vitamin C) 500 mg GT DAILY [facility] Stop: 07/13/16 08:59 Last Admin: 05/17/16 09:28 Dose: 500 mg Bisacodyl (Dulcolax 10 Mg Supp) 10 mg RC DAILY PRN PRN Reason: Constipation Stop: 07/12/16 23:17 Dextrose (D50w) 50 ml IVP PRN PRN PRN Reason: Blood Glucose less than 70 Stop: 07/17/16 06:05 Last Admin: 05/18/16 06:42 Dose: 50 ml Dextrose (Glutose 40%) 18.75 gm PO PRN PRN PRN Reason: Blood Glucose less than 70 Stop: 07/17/16 06:05 Doxazosin Mesylate (Cardura) 5 mg GT DAILY [facility] Stop: 07/13/16 08:59 Last Admin: 05/17/16 09:28 Dose: 5 mg Ferrous Sulfate (Iron) 300 mg GT DAILY [facility] Stop: 07/13/16 08:59 Last Admin: 05/17/16 09:27 Dose: 300 mg Fluconazole (Diflucan) 100 mg PO DAILY [facility] Stop: 07/13/16 17:59 Last Admin: 05/17/16 09:28 Dose: 100 mg Gabapentin (Neurontin) 100 mg GT HS [facility] Stop: 07/13/16 20:59 Last Admin: 05/17/16 21:02 Dose: 100 mg Glucagon (Glucagen) 1 mg IM PRN PRN PRN Reason: Blood Glucose less than 70 Stop: 07/17/16 06:05 Heparin Sodium (Porcine) (Heparin) 5,000 units SUBQ Q12HR [facility] Stop: 07/13/16 08:59 Last Admin: 05/17/16 21:02 Dose: 5,000 units Dextrose/Sodium Chloride (D5-0.45ns) 1,000 mls @ 75 mls/hr IV .[id number] [facility] Stop: 07/12/16 23:14 Last Admin: 05/18/16 06:14 Dose: 75 mls/hr Insulin Aspart (Novolog Insulin Sliding Scale) 0 units SUBQ ACHS [facility] PRN Reason: Protocol Stop: 07/13/16 07:29 Last Admin: 05/17/16 23:12 Dose: Not Given Insulin Detemir (Levemir Insulin) 10 units SUBQ HS [facility] PRN Reason: Protocol Stop: 07/13/16 20:59 Last Admin: 05/17/16 21:05 Dose: 10 units Insulin Detemir (Levemir Insulin) 15 units SUBQ QAM [facility] PRN Reason: Protocol Stop: 07/13/16 08:59 Last Admin: 05/17/16 09:27 Dose: 15 unit Levetiracetam (Keppra) 500 mg GT Q12HR [facility] Stop: 07/13/16 08:59 Last Admin: 05/17/16 21:02 Dose: 500 mg Magnesium Hydroxide (Milk Of Magnesia) 30 ml GT HS PRN PRN Reason: Constipation Stop: 07/12/16 23:17 Pantoprazole Sodium (Protonix) 40 mg GT QDAC [facility] Stop: 07/13/16 06:29 Last Admin: 05/18/16 06:14 Dose: 40 mg Senna (Senna) 17.2 mg GT HS [facility] Stop: 07/13/16 20:59 Last Admin: 05/17/16 21:02 Dose: 17.2 mg Sodium Phosphate (Fleet Enema) 135 ml RC Q2D PRN PRN Reason: Constipation Stop: 07/12/16 23:17 - Procedures Procedures: Procedures Procedure Code Date CHANGE FEEDING DEVICE IN UP INTEST TRACT, 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 [id number] 03/25/16 EXCISION OF DUODENUM, ENDO, DIAGN [id number] 03/25/16 EXCISION OF ESOPHAGOGASTRIC JUNCTION, ENDO, DIAGN [id number] 03/25/16 EXCISION OF STOMACH, PYLORUS, ENDO, DIAGN [id number] 03/25/16 EXCISION OF TRANSVERSE COLON, ENDO, DIAGN [id number] 03/25/16 EXTIRPATION OF MATTER FROM COMMON BILE DUCT, ENDO [id number] 01/28/16 FLUOROSCOPY OF BILE DUCTS USING LOW OSMOLAR CONTRAST [id number] 01/28/16 REMOVAL OF INTRALUMINAL DEVICE FROM HEPATOBILIARY DUCT, ENDO [id number] 01/28/16 Assessment/Plan - Problem List Patient Problems: All Active Problems uti (Acute) Abdominal pain (Acute) R10.9 Acute hypernatremia (Acute) E87.0 Acute hypernatremia (Acute) E87.0 Acute renal disease (Acute) N28.9 Anemia (Acute) D64.9 Diabetes (Acute) E11.9 GERD (gastroesophageal reflux disease) (Acute) K21.9 Gout (Acute) M10.9 History of DVT (deep vein thrombosis) (Acute) Z86.718 Hyperkalemia (Acute) E87.5 Hypernatremia (Acute) E87.0 Malnutrition (Acute) E46 Metabolic encephalopathy (Acute) G93.41 Pressure ulcer of sacral region (Acute) - Assessment Assessment: uti - Plan Plan: pt treated for uti and prerenal azatimia
[2016-05-18] MEDS: Ferrous Sulfate 300 MG/5 ML UDC GT SCH (08:48)
[2016-05-18] MEDS: Levetiracetam 500 mg/5mL 5mL UDC GT SCH (08:50)
[2016-05-18] MEDS: Multivitamin w/ Minerals Tab GT SCH (08:50)
[2016-05-18] MEDS: Insulin Detemir 100 units/mL 10mL Vial SUBQ SCH (10:56)
--- NOTE | 2016-05-18 11:11 | Diagnostic Imaging Report ---
Portable chest x-ray History: Cough Allowing for portable technique the heart size is normal. No focal pulmonary parenchymal processes. No hilar or mediastinal abnormalities. Impression: No acute abnormalities.
[2016-05-18] MEDS: INSULIN ASPART SLIDING SCALE 100 UNITS/ML UNIT SUBQ SCH ×2 (11:58→16:46)
--- NOTE | 2016-05-18 14:17 | General Progress Note ---
Subjective - Review of Systems Service Date: 05/18/16 Subjective: more awake, comfortable, verbal today Objective - Results Result Diagrams: 05/16/16 06:15 05/18/16 07:00 Recent Labs: Laboratory Last Values WBC 6.7 Th/cmm (4.8-10.8) 05/16/16 06:15 RBC 3.10 Mil/cmm (3.80-5.80) L 05/16/16 06:15 Hgb 10.2 gm/dL (12.6-17.4) L 05/16/16 06:15 Hct 29.8 % (39.0-49.0) L 05/16/16 06:15 MCV 96.1 fl (80-99) 05/16/16 06:15 MCH 32.8 pg (27.0-31.0) H 05/16/16 06:15 MCHC Differential 34.1 pg (28.0-36.0) 05/16/16 06:15 RDW 14.9 % (11.5-20.0) 05/16/16 06:15 Plt Count 102 Th/cmm (150-400) L 05/16/16 06:15 MPV 10.2 fl 05/16/16 06:15 Neutrophils % 58.3 % (40.0-80.0) 05/16/16 06:15 Lymphocytes % 27.2 % (20.0-50.0) 05/16/16 06:15 Monocytes % 5.2 % (2.0-10.0) 05/16/16 06:15 Eosinophils % 9.2 % (0.0-5.0) H 05/16/16 06:15 Basophils % 0.1 % (0.0-2.0) 05/16/16 06:15 PT 10.4 SECONDS (9.5-11.5) 05/13/16 21:10 INR 1.05 (0.5-1.4) 05/13/16 21:10 PTT (Actin FS) 26.1 SECONDS (26.0-38.0) 05/13/16 21:10 Sodium 138 mEq/L (136-145) 05/18/16 07:00 Potassium 3.8 mEq/L (3.5-5.1) 05/18/16 07:00 Chloride 110 mEq/L (98-107) H 05/18/16 07:00 Carbon Dioxide 23.7 mEq/L (21.0-31.0) 05/18/16 07:00 Anion Gap 8.1 (7.0-16.0) 05/18/16 07:00 BUN 26 mg/dL (7-25) H 05/18/16 07:00 Creatinine 1.1 mg/dL (0.7-1.3) 05/18/16 07:00 Est GFR ( Amer) > 60.0 ml/min 05/18/16 07:00 Est GFR (Non-Af Amer) > 60.0 ml/min 05/18/16 07:00 BUN/Creatinine Ratio 23.6 05/18/16 07:00 Glucose 196 mg/dL (70-105) H 05/18/16 07:00 POC Glucose 128 MG/DL (70 - 105) H 05/18/16 11:53 Hemoglobin A1c % 5.8 % (4.0-6.0) 05/13/16 20:10 Uric Acid 12.2 mg/dL (4.4-7.6) H 05/15/16 05:55 Calcium 8.7 mg/dL (8.6-10.3) 05/18/16 07:00 Phosphorus 3.7 mg/dL (2.5-5.0) 05/15/16 05:55 Magnesium 2.3 mg/dL (1.9-2.7) 05/15/16 05:55 Total Bilirubin 0.3 mg/dL (0.3-1.0) 05/14/16 06:40 AST 30 U/L (13-39) 05/14/16 06:40 ALT 25 U/L (7-52) 05/14/16 06:40 Alkaline Phosphatase 76 U/L (34-104) 05/14/16 06:40 Ammonia 50 umol/L (16-53) 05/13/16 21:10 Creatine Kinase 31 U/L (30-223) 05/13/16 21:10 CK-MB (CK-2) 0.6 ng/mL (0.6-6.3) 05/13/16 21:10 Troponin I 0.03 ng/mL (0.01-0.05) 05/13/16 21:10 B-Natriuretic Peptide 62.0 pg/mL (5.0-100.0) 05/13/16 21:10 Total Protein 8.0 gm/dL (6.0-8.3) 05/14/16 06:40 Albumin 3.4 gm/dL (4.2-5.5) L 05/14/16 06:40 Globulin 4.6 gm/dL 05/14/16 06:40 Albumin/Globulin Ratio 0.7 (1.0-1.8) L 05/14/16 06:40 Urine Source CLEAN C 05/13/16 21:30 Urine Color YELLOW 05/13/16 21:30 Urine Clarity HAZY (CLEAR) 05/13/16 21:30 Urine pH 5.5 05/13/16 21:30 Ur Specific [place] 1.015 (1.005-1.030) 05/13/16 21:30 Urine Protein 100 mg/dL (NEGATIVE) H 05/13/16 21:30 Urine Glucose (UA) NEGATIVE mg/dL (NEGATIVE) 05/13/16 21:30 Urine Ketones NEGATIVE mg/dL (NEGATIVE) 05/13/16 21:30 Urine Blood NEGATIVE (NEGATIVE) 05/13/16 21:30 Urine Nitrate NEGATIVE (NEGATIVE) 05/13/16 21:30 Urine Bilirubin NEGATIVE (NEGATIVE) 05/13/16 21:30 Urine Urobilinogen 0.2 E.U./dL (0.2 - 1.0) 05/13/16 21:30 Ur Leukocyte Esterase TRACE (NEGATIVE) H 05/13/16 21:30 Urine RBC 2-5 /hpf (0-5) H 05/13/16 21:30 Urine WBC 10-25 /hpf (0-5) H 05/13/16 21:30 Ur Epithelial Cells MODERATE /lpf (FEW) 05/13/16 21:30 Urine Bacteria MODERATE /hpf (NONE SEEN) 05/13/16 21:30 Urine Yeast MODERATE /hpf (NONE SEEN) H 05/13/16 21:30 Ur Random Sodium 67 mmol/L 05/15/16 03:13 Urine Creatinine 63.0 mg/dl (39.0-259.0) 05/15/16 03:13 Urine Microalbumin 566.8 ug/mL (Not Estab.) 05/13/16 21:30 Microalb/Creat Ratio 613.4 mg/g creat (0.0-30.0) H 05/13/16 21:30 Vancomycin Trough 18.9 ug/mL (10-20) 05/17/16 13:59 Urine Opiates Screen NEGATIVE (NEGATIVE) 05/13/16 21:30 Ur Barbiturates Screen NEGATIVE (NEGATIVE) 05/13/16 21:30 Ur Phencyclidine Scrn NEGATIVE (NEGATIVE) 05/13/16 21:30 Amphetamines Screen NEGATIVE (NEGATIVE) 05/13/16 21:30 U Methamphetamines Scrn NEGATIVE (NEGATIVE) 05/13/16 21:30 U Benzodiazepines Scrn NEGATIVE (NEGATIVE) 05/13/16 21:30 U Cocaine Metab Screen NEGATIVE (NEGATIVE) 05/13/16 21:30 U Cannabinoids Screen NEGATIVE (NEGATIVE) 05/13/16 21:30 Ethyl Alcohol < 10 mg/dL (0-10) 05/13/16 21:10 - Physical Exam Vitals and I&O: Vital Signs Temp 97.8 F 05/18/16 12:00 Pulse 60 05/18/16 12:00 Resp 18 05/18/16 12:00 BP 123/69 05/18/16 12:00 Pulse Ox 98 05/18/16 08:10 Intake & Output 05/17/16 05/18/16 05/18/16 18:59 06:59 18:59 Intake Total 2092.5 1036.25 Balance 2092.5 1036.25 Intake: Intake, IV Amount 932.5 866.25 D5-0.45NS 1,000 ml @ 75 932.5 866.25 mls/hr IV .[id number] [facility] Rx #:[id number] Oral 0 Tube Feeding 1160 110 Other 60 Other: # Voids 5 1 # Bowel Movements 3 Stool Characteristics Brown Active Medications: Current Medications Acetaminophen (Tylenol 650mg/20.3ml Suspension) 500 mg GT Q4HR PRN PRN Reason: Pain (Severe) Stop: 07/12/16 23:17 Last Admin: 05/17/16 04:43 Dose: 500 mg Ascorbic Acid (Vitamin C) 500 mg GT DAILY [facility] Stop: 07/13/16 08:59 Last Admin: 05/18/16 08:49 Dose: 500 mg Bisacodyl (Dulcolax 10 Mg Supp) 10 mg RC DAILY PRN PRN Reason: Constipation Stop: 07/12/16 23:17 Dextrose (D50w) 50 ml IVP PRN PRN PRN Reason: Blood Glucose less than 70 Stop: 07/17/16 06:05 Last Admin: 05/18/16 06:42 Dose: 50 ml Dextrose (Glutose 40%) 18.75 gm PO PRN PRN PRN Reason: Blood Glucose less than 70 Stop: 07/17/16 06:05 Doxazosin Mesylate (Cardura) 5 mg GT DAILY [facility] Stop: 07/13/16 08:59 Last Admin: 05/18/16 08:48 Dose: 5 mg Ferrous Sulfate (Iron) 300 mg GT DAILY [facility] Stop: 07/13/16 08:59 Last Admin: 05/18/16 08:48 Dose: 300 mg Fluconazole (Diflucan) 100 mg PO DAILY [facility] Stop: 07/13/16 17:59 Last Admin: 05/18/16 08:49 Dose: 100 mg Gabapentin (Neurontin) 100 mg GT HS [facility] Stop: 07/13/16 20:59 Last Admin: 05/17/16 21:02 Dose: 100 mg Glucagon (Glucagen) 1 mg IM PRN PRN PRN Reason: Blood Glucose less than 70 Stop: 07/17/16 06:05 Heparin Sodium (Porcine) (Heparin) 5,000 units SUBQ Q12HR [facility] Stop: 07/13/16 08:59 Last Admin: 05/18/16 08:49 Dose: 5,000 units Dextrose/Sodium Chloride (D5-0.45ns) 1,000 mls @ 75 mls/hr IV .[id number] [facility] Stop: 07/12/16 23:14 Last Admin: 05/18/16 06:14 Dose: 75 mls/hr Insulin Aspart (Novolog Insulin Sliding Scale) 0 units SUBQ ACHS [facility] PRN Reason: Protocol Stop: 07/13/16 07:29 Last Admin: 05/18/16 11:58 Dose: 2 units Insulin Detemir (Levemir Insulin) 10 units SUBQ HS [facility] PRN Reason: Protocol Stop: 07/13/16 20:59 Last Admin: 05/17/16 21:05 Dose: 10 units Insulin Detemir (Levemir Insulin) 15 units SUBQ QAM [facility] PRN Reason: Protocol Stop: 07/13/16 08:59 Last Admin: 05/18/16 10:56 Dose: 15 unit Levetiracetam (Keppra) 500 mg GT Q12HR [facility] Stop: 07/13/16 08:59 Last Admin: 05/18/16 08:50 Dose: 500 mg Magnesium Hydroxide (Milk Of Magnesia) 30 ml GT HS PRN PRN Reason: Constipation Stop: 07/12/16 23:17 Pantoprazole Sodium (Protonix) 40 mg GT QDAC [facility] Stop: 07/13/16 06:29 Last Admin: 05/18/16 06:14 Dose: 40 mg Senna (Senna) 17.2 mg GT HS [facility] Stop: 07/13/16 20:59 Last Admin: 05/17/16 21:02 Dose: 17.2 mg Sodium Phosphate (Fleet Enema) 135 ml RC Q2D PRN PRN Reason: Constipation Stop: 07/12/16 23:17 General: Alert, No acute distress HEENT: Atraumatic, Mucous membr. moist/pink Neck: Supple, +2 carotid pulse wo bruit Cardiovascular: Regular rate, Normal S1, Normal S2 Lungs: Clear to auscultation Abdomen: Bowel sounds, no Distended Extremities: Other, no Edema (deformed feet, hands) Neurological: Sensation intact Skin: no Rash - Procedures Procedures: Procedures Procedure Code Date CHANGE FEEDING DEVICE IN UP INTEST TRACT, FIREFIGHTER MARINE APPROACH 9F10JYT 03/25/16 EXCISION OF DUODENUM, ENDO, DIAGN [id number] 03/25/16 EXCISION OF ESOPHAGOGASTRIC JUNCTION, ENDO, DIAGN [id number] 03/25/16 EXCISION OF STOMACH, PYLORUS, ENDO, DIAGN [id number] 03/25/16 EXCISION OF TRANSVERSE COLON, ENDO, DIAGN [id number] 03/25/16 EXTIRPATION OF MATTER FROM COMMON BILE DUCT, ENDO [id number] 01/28/16 FLUOROSCOPY OF BILE DUCTS USING LOW OSMOLAR CONTRAST [id number] 01/28/16 REMOVAL OF INTRALUMINAL DEVICE FROM HEPATOBILIARY DUCT, ENDO [id number] 01/28/16 Assessment/Plan - Problem List Patient Problems: All Active Problems uti (Acute) Abdominal pain (Acute) R10.9 Acute hypernatremia (Acute) E87.0 Acute hypernatremia (Acute) E87.0 Acute renal disease (Acute) N28.9 Anemia (Acute) D64.9 Diabetes (Acute) E11.9 GERD (gastroesophageal reflux disease) (Acute) K21.9 Gout (Acute) M10.9 History of DVT (deep vein thrombosis) (Acute) Z86.718 Hyperkalemia (Acute) E87.5 Hypernatremia (Acute) E87.0 Malnutrition (Acute) E46 Metabolic encephalopathy (Acute) G93.41 Pressure ulcer of sacral region (Acute) - Assessment Assessment: BAN on CKD Left lower lobe HAP bact/yeast Cx UTI GPC septicemia type 2 DM Ess htn PUD anemia of ckd BPH malnutrition Functional quadriplegia - Plan Plan: kidney fnc gradually improving FENa 0.97% suggestive of pre renal component decrease ivf @ 70ml/hr start vanco for gpc septicemia, continue diflucan for yeast Cx uti f/u electrolytes repeat cxr: nad, renal us: no abnormalities
--- NOTE | 2016-05-22 07:34 | Discharge Summary ---
The patient was discharged on 05/18/2016 to [facility]. INITIAL DIAGNOSES: Increased renal failure, urinary tract infection, rule out sepsis, and ____ G-tube. The patient was admitted and was given fluids and also had a UTI and was treated with IV antibiotics. ID doctor saw the patient as well as frame trimmer. The patient was seen in a better condition. His renal failure improved. His UTI was improving. The patient was in stable condition and was sent back to [facility] where I will be following the patient. MEDICATION: See the reconciliation sheet. CONDITION AT THE TIME OF DISCHARGE: Stable. JOB# [id number]
== END 2016-05-18 18:48 | DRG 871 ==
LOC: ER 20:08 → TELE 22:45
PROVIDERS: ADMIT Internal Medicine; ATTEND Internal Medicine
DX: A41.89 Other specified sepsis (principal); J18.9 Pneumonia, unspecified organism; N17.9 Acute kidney failure, unspecified; G93.41 Metabolic encephalopathy; E87.0 Hyperosmolality and hypernatremia; E46 Unspecified protein-calorie malnutrition; R64 Cachexia; N18.3 Chronic kidney disease, stage 3 (moderate); E87.5 Hyperkalemia; B37.49 Other urogenital candidiasis; R53.2 Functional quadriplegia; F03.90 Unspecified dementia, unspecified severity, without behavioral disturbance, psychotic disturbance, mood disturbance, and anxiety; K27.9 Peptic ulcer, site unspecified, unspecified as acute or chronic, without hemorrhage or perforation; I12.9 Hypertensive chronic kidney disease with stage 1 through stage 4 chronic kidney disease, or unspecified chronic kidney disease; N40.0 Benign prostatic hyperplasia without lower urinary tract symptoms; J44.9 Chronic obstructive pulmonary disease, unspecified; E11.22 Type 2 diabetes mellitus with diabetic chronic kidney disease; D63.1 Anemia in chronic kidney disease; E11.51 Type 2 diabetes mellitus with diabetic peripheral angiopathy without gangrene; K21.9 Gastro-esophageal reflux disease without esophagitis; M10.9 Gout, unspecified; Z93.1 Gastrostomy status; Z68.26 Body mass index [BMI] 26.0-26.9, adult; Z86.718 Personal history of other venous thrombosis and embolism
CPT/HCPCS: 36415-UA; 71010-TC; 76770-TC; 80048-TC; 80053-TC; 80202-TC; 80320-TC; 81001-TC; 82043-90; 82140-TC; 82550-TC; 82553; 82570-TC; 82948-90; 83036-90; 83735-TC; 83880-TC; 84100-TC; 84300-TC; 84484-TC; 84550-TC; 85025-TC; 85610-TC; 85730-TC; 87086-90; 90799; 93005; 94760; J0696; J0885; J1644; J1815; J3370; J7030; Z7610

== ENCOUNTER 2017-07-21 22:31 | Inpatient (IN) | payer MEDICARE, MEDICAID ==
--- NOTE | 2017-07-21 22:49 | ED Physician Chart ---
ED Chief Complaint/HPI - Patient Information Date Seen:: 07/21/17 Time Seen:: 22:40 Chief Complaint:: G-Tube Dysfunction History of Present Illness:: onset x one day of g-tube dysfunction; no report of trauma, H/As, neck pain, C/P , SOB, Abd. Pain, A/N/V/D/C, fever, chills, or urinary s/s Allergies:: Allergies Allergy/AdvReac Type Severity Reaction Status Date / Time No Known Allergies Allergy Verified 07/21/17 22:45 Historian:: Patient, EMS Review:: Nurse's Note Reviewed, Old Chart Reviewed, EMS run form Reviewed ED Review of Systems - Review of Systems General/Constitutional: No fever, No chills, No weight loss, No weakness, No diaphoresis, No edema, No loss of appetite Skin: No skin lesions, No rash, No bruising Head: No headache, No light-headedness Eyes: No loss of vision, No pain, No diplopia ENT: No earache, No nasal drainage, No sore throat, No tinnitus Neck: No neck pain, No swelling, No thyromegaly, No stiffness, No mass noted Cardio Vascular: No chest pain, No palpitations, No PND, No orthopnea, No edema Pulmonary: No SOB, No cough, No sputum, No wheezing GI: No nausea, No vomiting, No diarrhea, No pain, No melena, No hematochezia, No constipation, No hematemesis G/U: No dysuria, No frequency, No hematuria, No nacturia Musculoskeletal: No bone or joint pain, No back pain, No muscle pain Endocrine: Polyuria, Polydipsia Psychiatric: No prior psych history, No depression, No anxiety, No suicidal ideation, No homicidal ideation, No auditory hallucination, No visual hallucination Hematopoietic: No bruising, No lymphadenopathy Allergic/Immuno: No urticaria, No angioedema Neurological: No syncope, No focal symptoms, No weakness, No paresthesia, No headache, No seizure, No dizziness, Confusion, No vertigo ED Past Medical History - Past Medical History Obtainable: Yes Past Medical History: HTN, DM, Asthma/COPD, Dyslipidemia, PUD/GERD, ESRD, Dementia Family History: Diabetes Melitus, HTN Social History: Non Smoker, No Alcohol, No Drug Use, Single, Care Facility Surgical History: PEG/GTube Psychiatricy History: Dementia Medication: Reviewed Family Medical History - Family Member Mother History Unknown: Yes Ethnicity: Living Status: Unknown Hx Family Hypertension: Yes Hx Family Diabetes: Yes ED Physical Exam - Physical Examination General/Constitutional: Awake, Well-developed, well-nourished, Alert, No distress, GCS 15, Non-toxic appearing, Ambulatory Head: Atraumatic Eyes: Lids, conjuctiva normal, PERRL, EOMI Skin: Nl inspection, No rash, No skin lesions, No ecchymosis, Well hydrated, No lymphadenopathy ENMT: External ears, nose nl, TM canals nl, Nasal exam nl, Lips, teeth, gums nl , Oropharynx nl, Tonsils nl Neck: Nontender, Full ROM w/o pain, No JVD, No nuchal rigidity, No bruit, No mass, No stridor Respiratory: Nl effort/Exclusion, Clear to Auscultation, No Wheeze/Rhonchi/Rales Cardio Vascular: RRR, No murmur, gallop, rubs, NL S1 S2, Carotid/Femoral/Distal pulses equal bilaterally GI: No tenderness/rebounding/guarding, No organomegaly, No hernia, Normal BS's, Nondistended, No mass/bruits, No McBurney tenderness Other GI comments:: no pulsatile masses; + G-Tube Dysfunction : No CVA tenderness Extremities: No tenderness or effusion, Full ROM, normal strength in all extremities, No edema, Normal digits & nails Neuro/Psych: Alert/oriented, DTR's symmetric, Normal sensory exam, Normal motor strength, Judgement/insight normal, Mood normal, Normal gait, No focal deficits Misc: Normal back, No paraspinal tenderness ED Labs/Radiology/EKG Results - Lab Results Comments:: Na+: 131; BUN: 39 ED Septic Shock - . Is Septic Shock (SBP<90, OR Lactate>4 mmol\L) present?: No ED Reassessment (Disposition) - Reassessment Reassessment Condition:: Improved - Diagnosis Diagnosis:: Hyponatremia; Dehydration; G-Tube Dysfunction; Pre-Renal Azotemia; Dementia - Aftercare/Follow up Instructions Aftercare/Follow-Up Instructions:: Counseled pt regarding lab results/diagnosis & need follow up, Counseled pt & family regarding lab results/diagnosis & need follow up - Patient Disposition Discharge/Transfer:: Acute Care w/in this hosp Accepting Physician:: Dr. Mcconnell Time Called:: 1640 Time Responded:: 23:30 Admitted to:: Med/Surg Spoke to:: Dr. Mcconnell Admitting Medical Physician:: Dr. Mcconnell Condition at Disposition:: Stable, Improved
[2017-07-21 23:02] LABS: % BASOPHILS 0.9 % (0.0-2.0); % EOSINOPHILS 3.3 % (0.0-5.0); % NEUTROPHILS 70.8 % (40.0-80.0); BASOPHILE ABSOLUTE 0.1 Th/cumm (0-0.2); EOSINOPHILE ABSOLUTE 0.3 Th/cmm (0.1-0.4); HEMATOCRIT 39.3 % (41.0-60); HEMOGLOBIN 13.1 gm/dL (12-16); LYMPHOCYTE ABSOLUTE 1.7 Th/cmm (1.5-3.0); MEAN CELL VOLUME 95.1 fl (80-99); MEAN CORPUSCULAR HEMOGLOBIN 31.7 pg (27.0-31.0); MEAN CORPUSCULAR HGB CONC 33.3 pg (28.0-36.0); MEAN PLATELET VOLUME 9.5 fl; MONOCYTE ABSOLUTE 0.4 Th/cmm (0.3-1.0); NEUTROPHILE ABSOLUTE 5.9 Th/cmm (1.8-8.0); PLATELET COUNT 189 Th/cmm (150-400); RED BLOOD COUNT 4.13 Mil/cmm (3.80-5.80); RED CELL DISTRIBUTION WIDTH 14.5 % (11.5-20.0); WHITE BLOOD COUNT 8.4 Th/cmm (4.8-10.8)
[2017-07-21 23:19] LABS: ALB/GLOB RATIO 0.8 (1.0-1.8); ALBUMIN 3.5 gm/dL (4.2-5.5); ALKALINE PHOSPHATASE 67 U/L (34-104); ANION GAP 9.1 (7.0-16.0); BILIRUBIN,TOTAL 0.6 mg/dL (0.3-1.0); BUN - UREA NITROGEN 39 mg/dL (7-25); CALCIUM SERUM 9.6 mg/dL (8.6-10.3); CARBON DIOXIDE 23.5 mEq/L (21.0-31.0); CHLORIDE 103 mEq/L (98-107); CREATININE - SERUM 1.3 mg/dL (0.7-1.3); GFR AFRICAN-AMERICAN > 60.0 ml/min (>90); GLUCOSE 89 mg/dL (70-105); POTASSIUM SERUM 4.6 mEq/L (3.5-5.1); SGOT 23 U/L (13-39); SGPT/ALT 12 U/L (7-52); SODIUM SERUM 131 mEq/L (136-145); TOTAL PROTEIN,SERUM 7.8 gm/dL (6.0-8.3)
[2017-07-21] MEDS ORDERED: Sodium Chloride 0.9% 1,000 ML IV ONE (23:35)
[2017-07-22] MEDS: D5-0.45NS 1,000 ML IV SCH ×2 (03:01→17:52)
[2017-07-22] MEDS: INSULIN ASPART SLIDING SCALE 100 UNITS/ML UNIT SUBQ SCH ×2 (07:50→18:09)
[2017-07-22 07:58] LABS: % BASOPHILS 0.2 % (0.0-2.0); % EOSINOPHILS 3.3 % (0.0-5.0); % MONOCYTES 7.1 % (2.0-10.0); % NEUTROPHILS 73.4 % (40.0-80.0); EOSINOPHILE ABSOLUTE 0.3 Th/cmm (0.1-0.4); HEMOGLOBIN 11.6 gm/dL (12-16); LYMPHOCYTE ABSOLUTE 1.6 Th/cmm (1.5-3.0); MEAN CELL VOLUME 94.5 fl (80-99); MEAN CORPUSCULAR HEMOGLOBIN 32.4 pg (27.0-31.0); MEAN CORPUSCULAR HGB CONC 34.3 pg (28.0-36.0); MEAN PLATELET VOLUME 9.2 fl; MONOCYTE ABSOLUTE 0.7 Th/cmm (0.3-1.0); NEUTROPHILE ABSOLUTE 7.5 Th/cmm (1.8-8.0); PLATELET COUNT 173 Th/cmm (150-400); RED BLOOD COUNT 3.57 Mil/cmm (3.80-5.80); RED CELL DISTRIBUTION WIDTH 14.8 % (11.5-20.0); WHITE BLOOD COUNT 10.1 Th/cmm (4.8-10.8)
[2017-07-22 08:06] LABS: HEMATOCRIT 33.7 % (41.0-60)
[2017-07-22 08:10] LABS: INR 0.98 (0.5-1.4); PROTHROMBIN TIME (TEST) 10.2 SECONDS (9.5-11.5)
[2017-07-22 08:53] LABS: ANION GAP 12.6 (7.0-16.0); BUN - UREA NITROGEN 37 mg/dL (7-25); CALCIUM SERUM 9.3 mg/dL (8.6-10.3); CARBON DIOXIDE 20.5 mEq/L (21.0-31.0); CHLORIDE 105 mEq/L (98-107); CHOLESTEROL 107 mg/dL (<200); CREATININE - SERUM 1.3 mg/dL (0.7-1.3); GFR AFRICAN-AMERICAN > 60.0 ml/min (>90); GLUCOSE 133 mg/dL (70-105); HDL -HIGH DENSITY LIPOPROTEIN 31 mg/dL (23-92); POTASSIUM SERUM 4.1 mEq/L (3.5-5.1); SODIUM SERUM 134 mEq/L (136-145); TRIGLYCERIDES 192 mg/dL (<150)
[2017-07-22] MEDS ORDERED: Acetaminophen 500 MG TAB PO PRN (13:22)
[2017-07-22] MEDS ORDERED: Magnesium Hydroxide (MOM) 30 mL UDC GT PRN (13:22)
[2017-07-22] MEDS ORDERED: Fleet Enema 135 mL RC PRN (13:22)
[2017-07-22] MEDS ORDERED: LEVETIRACETAM GT SCH (13:30)
[2017-07-22] MEDS ORDERED: LACTULOSE GT SCH (13:30)
[2017-07-22] MEDS ORDERED: EPOETIN ALFA 10000 UNIT SQ SCH (13:30)
--- NOTE | 2017-07-22 14:10 | Internal Medicine Prog Note ---
Internal Medicine Subjective - Subjective Service Date: 07/22/17 ([id number] hn dictated) Internal Medicine Objective - Results Result Diagrams: 07/22/17 06:32 07/22/17 06:32 Recent Labs: Laboratory Last Values WBC 10.1 Th/cmm (4.8-10.8) 07/22/17 06:32 RBC 3.57 Mil/cmm (3.80-5.80) L 07/22/17 06:32 Hgb 11.6 gm/dL (12-16) L 07/22/17 06:32 Hct 33.7 % (41.0-60) L D 07/22/17 06:32 MCV 94.5 fl (80-99) 07/22/17 06:32 MCH 32.4 pg (27.0-31.0) H 07/22/17 06:32 MCHC Differential 34.3 pg (28.0-36.0) 07/22/17 06:32 RDW 14.8 % (11.5-20.0) 07/22/17 06:32 Plt Count 173 Th/cmm (150-400) 07/22/17 06:32 MPV 9.2 fl 07/22/17 06:32 Neutrophils % 73.4 % (40.0-80.0) 07/22/17 06:32 Lymphocytes % 16.0 % (20.0-50.0) L 07/22/17 06:32 Monocytes % 7.1 % (2.0-10.0) 07/22/17 06:32 Eosinophils % 3.3 % (0.0-5.0) 07/22/17 06:32 Basophils % 0.2 % (0.0-2.0) 07/22/17 06:32 PT 10.2 SECONDS (9.5-11.5) 07/22/17 06:32 INR 0.98 (0.5-1.4) 07/22/17 06:32 PTT (Actin FS) 27.2 SECONDS (26.0-38.0) 07/22/17 06:32 Sodium 134 mEq/L (136-145) L 07/22/17 06:32 Potassium 4.1 mEq/L (3.5-5.1) 07/22/17 06:32 Chloride 105 mEq/L (98-107) 07/22/17 06:32 Carbon Dioxide 20.5 mEq/L (21.0-31.0) L 07/22/17 06:32 Anion Gap 12.6 (7.0-16.0) 07/22/17 06:32 BUN 37 mg/dL (7-25) H 07/22/17 06:32 Creatinine 1.3 mg/dL (0.7-1.3) 07/22/17 06:32 Est GFR ( Amer) > 60.0 ml/min (>90) 07/22/17 06:32 Est GFR (Non-Af Amer) 58.0 ml/min 07/22/17 06:32 BUN/Creatinine Ratio 28.5 07/22/17 06:32 Glucose 133 mg/dL (70-105) H 07/22/17 06:32 POC Glucose 171 MG/DL (70 - 105) H 07/22/17 11:56 Calcium 9.3 mg/dL (8.6-10.3) 07/22/17 06:32 Total Bilirubin 0.6 mg/dL (0.3-1.0) 07/21/17 22:54 AST 23 U/L (13-39) 07/21/17 22:54 ALT 12 U/L (7-52) 07/21/17 22:54 Alkaline Phosphatase 67 U/L (34-104) 07/21/17 22:54 Total Protein 7.8 gm/dL (6.0-8.3) 07/21/17 22:54 Albumin 3.5 gm/dL (4.2-5.5) L 07/21/17 22:54 Globulin 4.3 gm/dL 07/21/17 22:54 Albumin/Globulin Ratio 0.8 (1.0-1.8) L 07/21/17 22:54 Triglycerides 192 mg/dL (<150) H 07/22/17 06:32 Cholesterol 107 mg/dL (<200) 07/22/17 06:32 LDL Cholesterol Direct 53 mg/dL (75-193) L 07/22/17 06:32 HDL Cholesterol 31 mg/dL (23-92) 07/22/17 06:32 - Physical Exam Vitals and I&O: Vital Signs Temp 98.4 F 07/22/17 12:03 Pulse 81 07/22/17 12:03 Resp 18 07/22/17 12:03 BP 134/47 07/22/17 12:03 Pulse Ox 98 07/22/17 12:03 Active Medications: Current Medications Acetaminophen (Tylenol) 650 mg GT Q4HR PRN PRN Reason: Pain or Fever >101 Stop: 09/20/17 13:21 Acetaminophen (Tylenol Extra Strength) 1,000 mg PO Q4HR PRN PRN Reason: Pain (Moderate) Stop: 09/20/17 13:21 Aspirin (Aspirin Chewable) 81 mg GT DAILY [facility] Stop: 09/21/17 08:59 Bisacodyl (Dulcolax 10 Mg Supp) 10 mg RC DAILY PRN PRN Reason: Constipation Stop: 09/20/17 13:21 Dextrose/Sodium Chloride (D5-0.45ns) 1,000 mls @ 75 mls/hr IV .[id number] [facility] Stop: 09/20/17 01:29 Last Admin: 07/22/17 03:01 Dose: 75 mls/hr Insulin Aspart (Novolog Insulin Sliding Scale) 0 units SUBQ BIDAC [facility] PRN Reason: Protocol Stop: 09/20/17 07:29 Last Admin: 07/22/17 07:50 Dose: Not Given Insulin Detemir (Levemir Insulin) 10 units SUBQ HS [facility] PRN Reason: Protocol Stop: 09/20/17 20:59 Insulin Detemir (Levemir Insulin) 15 units SUBQ QAM [facility] PRN Reason: Protocol Stop: 09/21/17 08:59 Magnesium Hydroxide (Milk Of Magnesia) 30 ml GT HS PRN PRN Reason: Constipation Stop: 09/20/17 13:21 Miscellaneous (Amino Acids/Protein Hydrolys [Pro-Stat Sugar Free Liquid]) 30 ml GT DAILY [facility] Stop: 09/21/17 08:59 Miscellaneous (Doxazosin Mesylate [Cardura]) 5 mg GT DAILY [facility] Stop: 09/21/17 08:59 Miscellaneous (Epoetin Maksim [Epogen]) 10,000 unit SQ QFRI [facility] Stop: 09/20/17 13:29 Miscellaneous (Lactulose [Lactulose]) 45 ml GT Q8H [facility] Stop: 09/20/17 13:29 Miscellaneous (Lansoprazole [Prevacid]) 30 mg GT DAILY [facility] Stop: 09/21/17 08:59 Miscellaneous (Levetiracetam) 5 ml GT Q12H [facility] Stop: 09/20/17 13:29 Miscellaneous (Multivitamin W/ Minerals) 15 ml GT DAILY [facility] Stop: 09/21/17 08:59 Miscellaneous (Omeprazole [Omeprazole]) 20 mg GT DAILY [facility] Stop: 09/21/17 08:59 Miscellaneous (Vit C/Ascorbate Ca/Ascorb Sod [Vitamin C 500 Mg/15 Ml Liquid]) 500 mg GT DAILY [facility] Stop: 09/21/17 08:59 Ondansetron HCl (Zofran Odt) 4 mg PO Q6HR PRN PRN Reason: Nausea Stop: 09/20/17 13:21 Sennosides (Senna Plus 50 Mg-8.6 Mg) tab GT HS [facility] Stop: 09/20/17 20:59 Sodium Phosphate (Fleet Enema) 135 ml RC Q48H PRN PRN Reason: Constipation Stop: 09/20/17 13:21 - Procedures Procedures: Procedures Procedure Code Date CHANGE FEEDING DEVICE IN UP INTEST TRACT, TORPEDO MAN APPROACH [id number] 10/04/16 CHANGE GASTROSTOMY TUBE 50289 10/04/16 EXCISION OF DUODENUM, ENDO, DIAGN [id number] 03/25/16 EXCISION OF ESOPHAGOGASTRIC JUNCTION, ENDO, DIAGN [id number] 03/25/16 EXCISION OF STOMACH, ENDO, DIAGN [id number] 04/07/17 EXCISION OF STOMACH, PYLORUS, ENDO, DIAGN [id number] 03/25/16 EXCISION OF TRANSVERSE COLON, ENDO, DIAGN [id number] 03/25/16 EXTIRPATION OF MATTER FROM COMMON BILE DUCT, ENDO [id number] 01/28/16 FLUOROSCOPY OF BILE DUCTS USING LOW OSMOLAR CONTRAST [id number] 01/28/16 REMOVAL OF INTRALUMINAL DEVICE FROM HEPATOBILIARY DUCT, ENDO [id number] 01/28/16
--- NOTE | 2017-07-22 16:24 | History & Physical ---
ADMIT DATE: 07/22/2017 CHIEF COMPLAINT: G-tube dysfunction. HISTORY OF PRESENT ILLNESS: This is a 71-year-old male who is a long-term resident who was noted by nursing staff at the nursing facility due to G-tube malfunction. For further management, the patient is now admitted to the med/surg unit. PAST MEDICAL HISTORY: Hypertension, diabetes, asthma, COPD, dyslipidemia, PUD, GERD, ESRD, dementia and seizures. FAMILY HISTORY: Noncontributory. SOCIAL HISTORY: The patient is a long-term resident, requiring 24-hour nursing care. PAST SURGICAL HISTORY: PEG. MEDICATIONS: Please see medication sheet. REVIEW OF SYSTEMS: Unable to obtain due to patient's mental status. PHYSICAL EXAMINATION: GENERAL: This is an elderly male, awake and in no apparent distress. VITAL SIGNS: Temperature 98.4, heart rate 81, blood pressure 134/47, respiratory rate 18 and O2 98%. HEENT: Head; normocephalic and atraumatic. NECK: Supple. No mass. LUNGS: Clear bilaterally. HEART: Regular rate and rhythm. ABDOMEN: Soft and nontender. LABORATORY DATA: WBC 10.1, H and H 11.6 and 32.7 and platelet of 173. Sodium 134, potassium 4.1, chloride 105, BUN 37 and creatinine 1.3. ASSESSMENT: G-tube malfunction, hypertension, diabetes, asthma, chronic obstructive pulmonary disease, dyslipidemia, gastroesophageal reflux disease, end-stage renal disease and dementia. PLAN: The patient to be admitted to the med/surg unit. We will get GI on the case. We will insert the patient with NG tube since the patient has a history of seizures. IV fluids for hydration. We will continue to monitor this patient. JOB# [id number]
[2017-07-22] MEDS ORDERED: Diatrizoate Meglumine/Diatri 30 mL Sol PO ONE (16:58)
--- NOTE | 2017-07-22 17:50 | Operative Report ---
DATE OF SURGERY: 07/22/2017 INPATIENT GASTROINTESTINAL PROCEDURE NAME OF PROCEDURE: G-tube change. REFERRING PHYSICIAN: Dr. Mcconnell. REASON FOR PROCEDURE: Malfunctioning G-tube, dysphagia. PREOPERATIVE DIAGNOSES: Malfunctioning G-tube, dysphagia. POSTOPERATIVE DIAGNOSIS: New 20-[place] gastrostomy tube placed. DESCRIPTION OF PROCEDURE: The patient was placed on his back. The old G-tube site was identified. It was a Thomas tube, keeping it open. The internal balloon was not inflated and therefore it simply pulled out. A new 20-[place] gastrostomy tube was lubricated and the tip inserted through the gastrocutaneous fistula entering into stomach lumen. Internal balloon was inflated with 15 mL of sterile saline. Outer flange was secured in position. Procedure was then completed. COMPLICATIONS: None. FINDINGS: New 20-[place] gastrostomy tube placed. RECOMMENDATIONS: 1. KUB with Gastrografin confirmed placement. 2. If it is in stomach, may begin using it. 3. Check residual every 6 hours, hold greater than 100 mL. Thank you for allowing me to participate. Please call me if any questions. JOB# [id number]
[2017-07-22] MEDS: Levetiracetam 500 mg/5mL 5mL UDSyr *for ORAL USE ONLY GT SCH (20:01)
[2017-07-22] MEDS: Lactulose 10 Gm/15 mL 30mL UDC PO SCH (20:01)
[2017-07-22] MEDS ORDERED: Insulin Detemir 100 units/mL 10mL Vial SUBQ SCH (21:00)
[2017-07-22] MEDS ORDERED: Docusate Sodium/Senna Tab GT SCH (21:00)
--- NOTE | 2017-07-22 22:56 | Consultation ---
DATE OF CONSULTATION: 07/22/2017 INPATIENT GASTROINTESTINAL CONSULTATION REFERRING PHYSICIAN: Dr. Mcconnell. REASON FOR CONSULTATION: Malfunctioning G-tube. HISTORY OF PRESENT ILLNESS: This is a 71-year-old male who was brought to the hospital because malfunctioning of the G-tube. The patient is otherwise poor historian. PAST MEDICAL HISTORY: Hypertension, diabetes, asthma, COPD, hyperlipidemia, peptic ulcer disease, GERD, chronic kidney disease, dementia, and seizure disorder. PAST SURGICAL HISTORY: PEG tube placement. FAMILY HISTORY: Noncontributory. SOCIAL HISTORY: Resident of [facility] facility. ALLERGIES: None. CURRENT MEDICATIONS: Tylenol, vitamin C, aspirin, Cardura, Epogen, insulin, Levemir, lactulose, Keppra, milk of magnesia, Zofran, Protonix, senna, and Fleet enema. REVIEW OF SYSTEMS: Unobtainable. PHYSICAL EXAMINATION: VITAL SIGNS: Temperature 98.4, breathing 18, pulse of 81, blood pressure 134/47, and satting 98%. GENERAL: In no apparent distress. EYES: Anicteric. Normal conjunctivae. HEENT: Normocephalic and atraumatic. Moist mucous membranes. NECK: Soft and supple. CHEST: Clear. No effort. CARDIOVASCULAR: Regular rate and rhythm. ABDOMEN: Soft, nontender, and nondistended with the Htomas tube, keeping the G-tube site open. SKIN: Warm and dry. EXTREMITIES: Revealed no cyanosis. LABORATORY DATA: Show on admission white count 8.4, hemoglobin 13.1, and platelets of 189. INR 0.98. LFTs were within normal limits. IMPRESSION: A 71-year-old male with malfunctioning G-tube and dysphagia. Will likely need to have G-tube replaced. Currently has a Thomas tube in place. PLAN: G-tube to be changed at bedside. Thank you for allowing me to participate. Please call me if you have any questions. JOB# [id number]
[2017-07-23] MEDS: Lactulose 10 Gm/15 mL 30mL UDC PO SCH ×3 (00:04→16:07)
[2017-07-23] MEDS: Levetiracetam 500 mg/5mL 5mL UDSyr *for ORAL USE ONLY GT SCH ×2 (03:32→16:07)
[2017-07-23 05:57] LABS: % BASOPHILS 0.7 % (0.0-2.0); % LYMPHOCYTES 19.5 % (20.0-50.0); % MONOCYTES 7.4 % (2.0-10.0); % NEUTROPHILS 68.4 % (40.0-80.0); BASOPHILE ABSOLUTE 0.1 Th/cumm (0-0.2); EOSINOPHILE ABSOLUTE 0.4 Th/cmm (0.1-0.4); HEMATOCRIT 36.4 % (41.0-60); HEMOGLOBIN 11.9 gm/dL (12-16); LYMPHOCYTE ABSOLUTE 1.9 Th/cmm (1.5-3.0); MEAN CELL VOLUME 94.1 fl (80-99); MEAN CORPUSCULAR HEMOGLOBIN 30.9 pg (27.0-31.0); MEAN CORPUSCULAR HGB CONC 32.8 pg (28.0-36.0); MEAN PLATELET VOLUME 9.6 fl; MONOCYTE ABSOLUTE 0.7 Th/cmm (0.3-1.0); NEUTROPHILE ABSOLUTE 6.5 Th/cmm (1.8-8.0); PLATELET COUNT 182 Th/cmm (150-400); RED BLOOD COUNT 3.86 Mil/cmm (3.80-5.80); RED CELL DISTRIBUTION WIDTH 14.7 % (11.5-20.0); WHITE BLOOD COUNT 9.6 Th/cmm (4.8-10.8)
[2017-07-23 06:07] LABS: ANION GAP 7.7 (7.0-16.0); BUN - UREA NITROGEN 27 mg/dL (7-25); CALCIUM SERUM 8.8 mg/dL (8.6-10.3); CARBON DIOXIDE 24.3 mEq/L (21.0-31.0); CHLORIDE 106 mEq/L (98-107); CREATININE - SERUM 1.1 mg/dL (0.7-1.3); GFR AFRICAN-AMERICAN > 60.0 ml/min (>90); GFR NON AFRICAN-AMERICAN > 60.0 ml/min; GLUCOSE 171 mg/dL (70-105); SODIUM SERUM 134 mEq/L (136-145)
[2017-07-23] MEDS: D5-0.45NS 1,000 ML IV SCH (07:00)
[2017-07-23] MEDS: INSULIN ASPART SLIDING SCALE 100 UNITS/ML UNIT SUBQ SCH ×2 (07:30→16:08)
--- NOTE | 2017-07-23 07:40 | Diagnostic Imaging Report ---
Portable chest x-ray Time: 1511 hours Compared to prior study of 04/07/2017 History: NG tube placement Allowing for portable technique the heart size is normal. No focal pulmonary parenchymal processes. No hilar or mediastinal abnormalities. NG tube is progressed into the stomach Impression: NG tube in the stomach. No acute abnormalities.
--- NOTE | 2017-07-23 07:41 | Diagnostic Imaging Report ---
Exam: KUB of the abdomen HISTORY: Gastrostomy tube placement Findings: Frontal examination the abdomen with injection of contrast material gastrostomy tube demonstrates gastrostomy tube in the stomach. IMPRESSION: Gastrostomy tube in the stomach. NG tube can be advanced 10 cm.
[2017-07-23] MEDS ORDERED: DOXAZOSIN MESYLATE GT SCH (09:00)
[2017-07-23] MEDS ORDERED: MINERALS GT SCH (09:00)
[2017-07-23] MEDS ORDERED: LANSOPRAZOLE 30 MG GT SCH (09:00)
[2017-07-23] MEDS ORDERED: Multivitamin 5 mL UDC GT SCH (09:00)
[2017-07-23] MEDS ORDERED: MULTIVITAMIN GT SCH (09:00)
[2017-07-23] MEDS ORDERED: Pantoprazole 40 mg EC Tab PO SCH (09:00)
[2017-07-23] MEDS ORDERED: Aspirin 81mg Chewable Tab GT SCH (09:00)
[2017-07-23] MEDS ORDERED: Non-Formulary Item 1 EA (Amino Acids/Protein Hydrolys [Pro-Stat Sugar Free Liquid] 30 ML) GT SCH (09:00)
[2017-07-23] MEDS ORDERED: Epoetin Alfa 20000 Units/mL Vial SUBQ SCH (09:00)
[2017-07-23] MEDS ORDERED: Non-Formulary Item 1 EA (Omeprazole [Omeprazole] 20 MG) GT SCH (09:00)
[2017-07-23] MEDS ORDERED: Insulin Detemir 100 units/mL 10mL Vial SUBQ SCH (09:00)
[2017-07-23] MEDS ORDERED: Non-Formulary Item 1 EA (Vit C/Ascorbate Ca/Ascorb Sod [Vitamin C 500 Mg/15 Ml Liquid] 500 GT SCH (09:00)
[2017-07-23] MEDS ORDERED: Ascorbic Acid 500 mg/5 mL UDC PO SCH (09:00)
--- NOTE | 2017-07-23 10:32 | GI Progress Note ---
Subjective - Review of Systems Service Date: 07/23/17 Subjective: G tube confirmed, no events Objective - Results Result Diagrams: 07/23/17 05:15 07/23/17 05:15 Recent Labs: Laboratory Last Values WBC 9.6 Th/cmm (4.8-10.8) 07/23/17 05:15 RBC 3.86 Mil/cmm (3.80-5.80) 07/23/17 05:15 Hgb 11.9 gm/dL (12-16) L 07/23/17 05:15 Hct 36.4 % (41.0-60) L 07/23/17 05:15 MCV 94.1 fl (80-99) 07/23/17 05:15 MCH 30.9 pg (27.0-31.0) 07/23/17 05:15 MCHC Differential 32.8 pg (28.0-36.0) 07/23/17 05:15 RDW 14.7 % (11.5-20.0) 07/23/17 05:15 Plt Count 182 Th/cmm (150-400) 07/23/17 05:15 MPV 9.6 fl 07/23/17 05:15 Neutrophils % 68.4 % (40.0-80.0) 07/23/17 05:15 Lymphocytes % 19.5 % (20.0-50.0) L 07/23/17 05:15 Monocytes % 7.4 % (2.0-10.0) 07/23/17 05:15 Eosinophils % 4.0 % (0.0-5.0) 07/23/17 05:15 Basophils % 0.7 % (0.0-2.0) 07/23/17 05:15 PT 10.2 SECONDS (9.5-11.5) 07/22/17 06:32 INR 0.98 (0.5-1.4) 07/22/17 06:32 PTT (Actin FS) 27.2 SECONDS (26.0-38.0) 07/22/17 06:32 Sodium 134 mEq/L (136-145) L 07/23/17 05:15 Potassium 4.0 mEq/L (3.5-5.1) 07/23/17 05:15 Chloride 106 mEq/L (98-107) 07/23/17 05:15 Carbon Dioxide 24.3 mEq/L (21.0-31.0) 07/23/17 05:15 Anion Gap 7.7 (7.0-16.0) 07/23/17 05:15 BUN 27 mg/dL (7-25) H 07/23/17 05:15 Creatinine 1.1 mg/dL (0.7-1.3) 07/23/17 05:15 Est GFR ( Amer) > 60.0 ml/min (>90) 07/23/17 05:15 Est GFR (Non-Af Amer) > 60.0 ml/min 07/23/17 05:15 BUN/Creatinine Ratio 24.5 07/23/17 05:15 Glucose 171 mg/dL (70-105) H 07/23/17 05:15 POC Glucose 158 MG/DL (70 - 105) H 07/23/17 10:14 Calcium 8.8 mg/dL (8.6-10.3) 07/23/17 05:15 Total Bilirubin 0.6 mg/dL (0.3-1.0) 07/21/17 22:54 AST 23 U/L (13-39) 07/21/17 22:54 ALT 12 U/L (7-52) 07/21/17 22:54 Alkaline Phosphatase 67 U/L (34-104) 07/21/17 22:54 Total Protein 7.8 gm/dL (6.0-8.3) 07/21/17 22:54 Albumin 3.5 gm/dL (4.2-5.5) L 07/21/17 22:54 Globulin 4.3 gm/dL 07/21/17 22:54 Albumin/Globulin Ratio 0.8 (1.0-1.8) L 07/21/17 22:54 Triglycerides 192 mg/dL (<150) H 07/22/17 06:32 Cholesterol 107 mg/dL (<200) 07/22/17 06:32 LDL Cholesterol Direct 53 mg/dL (75-193) L 07/22/17 06:32 HDL Cholesterol 31 mg/dL (23-92) 07/22/17 06:32 - Physical Exam Vitals and I&O: Vital Signs Temp 97.6 F 07/23/17 07:59 Pulse 96 07/23/17 07:59 Resp 19 07/23/17 07:59 BP 143/33 07/23/17 07:59 Pulse Ox 92 07/23/17 07:59 Intake & Output 07/22/17 07/23/17 07/23/17 18:59 06:59 18:59 Intake Total 1000 985 Output Total 2 Balance 1000 -2 985 Weight (lbs) 72.575 kg 73.482 kg Intake: Intake, IV Amount 1000 985 D5-0.45NS 1,000 ml @ 75 1000 985 mls/hr IV .[id number] [facility] Rx #:[id number] Output: Stool 2 Other: # Voids 3 2 Active Medications: Current Medications Acetaminophen (Tylenol) 650 mg GT Q4HR PRN PRN Reason: Pain or Fever >101 Stop: 09/20/17 13:21 Acetaminophen (Tylenol Extra Strength) 1,000 mg PO Q4HR PRN PRN Reason: Pain (Moderate) Stop: 09/20/17 13:21 Ascorbic Acid (Vitamin C) 500 mg PO DAILY [facility] Stop: 09/21/17 08:59 Aspirin (Aspirin Chewable) 81 mg GT DAILY [facility] Stop: 09/21/17 08:59 Last Admin: 07/23/17 10:22 Dose: 81 mg Bisacodyl (Dulcolax 10 Mg Supp) 10 mg RC DAILY PRN PRN Reason: Constipation Stop: 09/20/17 13:21 Doxazosin Mesylate (Cardura) 5 mg PO DAILY [facility] Stop: 09/21/17 08:59 Last Admin: 07/23/17 10:26 Dose: Not Given Epoetin Maksim (Epogen) 10,000 units SUBQ Fr@0900 [facility] Stop: 09/21/17 08:59 Dextrose/Sodium Chloride (D5-0.45ns) 1,000 mls @ 75 mls/hr IV .[id number] [facility] Stop: 09/20/17 01:29 Last Admin: 07/23/17 07:00 Dose: 75 mls/hr Insulin Aspart (Novolog Insulin Sliding Scale) 0 units SUBQ BIDAC [facility] PRN Reason: Protocol Stop: 09/20/17 07:29 Last Admin: 07/23/17 07:30 Dose: Not Given Insulin Detemir (Levemir Insulin) 10 units SUBQ HS [facility] PRN Reason: Protocol Stop: 09/20/17 20:59 Last Admin: 07/22/17 20:51 Dose: Not Given Insulin Detemir (Levemir Insulin) 15 units SUBQ QAM [facility] PRN Reason: Protocol Stop: 09/21/17 08:59 Last Admin: 07/23/17 10:19 Dose: 15 units Lactulose (Cephulac) 30 gm PO Q8H [facility] Stop: 09/20/17 15:29 Last Admin: 07/23/17 00:04 Dose: Not Given Levetiracetam (Keppra) 500 mg GT Q12H [facility] Stop: 09/20/17 15:29 Last Admin: 07/23/17 03:32 Dose: Not Given Magnesium Hydroxide (Milk Of Magnesia) 30 ml GT HS PRN PRN Reason: Constipation Stop: 09/20/17 13:21 Multivitamins/Vitamin C (Theragran) 5 ml GT DAILY [facility] Stop: 09/21/17 08:59 Ondansetron HCl (Zofran Odt) 4 mg PO Q6HR PRN PRN Reason: Nausea Stop: 09/20/17 13:21 Pantoprazole Sodium (Protonix) 40 mg PO DAILY [facility] Stop: 09/21/17 08:59 Last Admin: 07/23/17 10:22 Dose: 40 mg Sennosides (Senna Plus 50 Mg-8.6 Mg) 1 tab GT HS [facility] Stop: 09/20/17 20:59 Last Admin: 07/22/17 23:54 Dose: Not Given Sodium Phosphate (Fleet Enema) 135 ml RC Q48H PRN PRN Reason: Constipation Stop: 09/20/17 13:21 Neck: Supple Cardiovascular: Regular rate Abdomen: Bowel sounds, Soft, no Tender, no Hepatomegaly, no Distended, no Rebound, no Mass, no Guarding Skin: no Rash - Procedures Procedures: Procedures Procedure Code Date CHANGE FEEDING DEVICE IN UP INTEST TRACT, MEDIA PRODUCER APPROACH [id number] 07/21/17 CHANGE GASTROSTOMY TUBE 79963 07/21/17 EXCISION OF DUODENUM, ENDO, DIAGN [id number] 03/25/16 EXCISION OF ESOPHAGOGASTRIC JUNCTION, ENDO, DIAGN [id number] 03/25/16 EXCISION OF STOMACH, ENDO, DIAGN [id number] 04/07/17 EXCISION OF STOMACH, PYLORUS, ENDO, DIAGN [id number] 03/25/16 EXCISION OF TRANSVERSE COLON, ENDO, DIAGN [id number] 03/25/16 EXTIRPATION OF MATTER FROM COMMON BILE DUCT, ENDO [id number] 01/28/16 FLUOROSCOPY OF BILE DUCTS USING LOW OSMOLAR CONTRAST [id number] 01/28/16 REMOVAL OF INTRALUMINAL DEVICE FROM HEPATOBILIARY DUCT, ENDO [id number] 01/28/16 Assessment/Plan - Assessment Assessment: # Dementia # G tube dependence and malfunction G tube changed on 07/22, and confirmed to be in location Plan: - start G tube feeds, and titrate to goal rate - hold for residual > 150cc - flush with 100cc water every 6 hours GI to see as needed, please call with questions
[2017-07-23] MEDS ORDERED: Multivitamin Tab PO SCH (14:15)
--- NOTE | 2017-07-30 22:11 | Discharge Summary ---
DATE OF DISCHARGE: 07/23/2017 The patient was admitted on 07/21/2017 and discharged back to [place] on 07/23/2017. The patient was admitted for initial diagnosis of his G-tube malfunction, history of hypertension, diabetes, asthma, COPD, hyperlipidemia, GERD and history of end-stage renal disease. GI consult, saw the patient and the patient was taken to the OR and replace his G-tube. The patient was in stable condition on 07/23/2017. The patient was discharged back to [place] with the final diagnosis of status post malfunction of the G-tube replaced with status post replacement of the G-tube. JOB# [id number]
== END 2017-07-23 18:30 | disposition home or self-care (01) | DRG 393 ==
LOC: ER 22:31 → MSI 23:30
PROVIDERS: ADMIT Internal Medicine; ATTEND Internal Medicine
PROC: 0D20XUZ Change Feeding Device in Upper Intestinal Tract, External Approach (ICD-10-PCS; principal; 2017-07-22)
DX: K94.23 Gastrostomy malfunction (principal); N18.6 End stage renal disease; E11.22 Type 2 diabetes mellitus with diabetic chronic kidney disease; I12.0 Hypertensive chronic kidney disease with stage 5 chronic kidney disease or end stage renal disease; E87.1 Hypo-osmolality and hyponatremia; R13.10 Dysphagia, unspecified; J44.9 Chronic obstructive pulmonary disease, unspecified; E78.5 Hyperlipidemia, unspecified; K21.9 Gastro-esophageal reflux disease without esophagitis; F03.90 Unspecified dementia, unspecified severity, without behavioral disturbance, psychotic disturbance, mood disturbance, and anxiety; G40.909 Epilepsy, unspecified, not intractable, without status epilepticus; E86.0 Dehydration; Z71.89 Other specified counseling; Z87.11 Personal history of peptic ulcer disease; Z79.899 Other long term (current) drug therapy; Z99.2 Dependence on renal dialysis
CPT/HCPCS: 36415-UA; 71045-TC; 80048-TC; 80053-TC; 80061-TC; 82948-90; 85025-TC; 85610-TC; J0885; J1815; J7030; Z7610

== ENCOUNTER 2017-10-19 11:08 | Inpatient (IN) | payer MEDICARE, MEDICAID ==
[2017-10-19] MEDS ORDERED: Sodium Chloride 0.9% 1,000 ML IV ONE (11:16)
--- NOTE | 2017-10-19 11:20 | ED Physician Chart ---
ED Chief Complaint/HPI - Patient Information Date Seen:: 10/19/17 Time Seen:: 11:00 Chief Complaint:: AMS History of Present Illness:: onset x 2 days of AMS and ALOC with abnormal lab tests this morning; no report of trauma, H/As, S/T, cough, C/P, SOB, Abd. Pain, A/N/V/D/C, fever, chills, or urinary s/s Allergies:: Allergies Allergy/AdvReac Type Severity Reaction Status Date / Time No Known Allergies Allergy Verified 07/21/17 22:45 Historian:: Patient, EMS Review:: Nurse's Note Reviewed, Old Chart Reviewed, EMS run form Reviewed ED Review of Systems - Review of Systems General/Constitutional: No fever, No chills, No weight loss, No weakness, No diaphoresis, No edema, No loss of appetite Skin: No skin lesions, No rash, No bruising Head: No headache, No light-headedness Eyes: No loss of vision, No pain, No diplopia ENT: No earache, No nasal drainage, No sore throat, No tinnitus Neck: No neck pain, No swelling, No thyromegaly, No stiffness, No mass noted Cardio Vascular: No chest pain, No palpitations, No PND, No orthopnea, No edema Pulmonary: SOB, Cough, No sputum, Wheezing GI: No nausea, No vomiting, No diarrhea, No pain, No melena, No hematochezia, No constipation, No hematemesis G/U: No dysuria, No frequency, No hematuria, No nacturia Musculoskeletal: No bone or joint pain, No back pain, No muscle pain Endocrine: No polyuria, No polydipsia Psychiatric: No prior psych history, No depression, No anxiety, No suicidal ideation, No homicidal ideation, No auditory hallucination, No visual hallucination Hematopoietic: No bruising, No lymphadenopathy Allergic/Immuno: No urticaria, No angioedema Neurological: No syncope, No focal symptoms, No weakness, No paresthesia, No headache, No seizure, No dizziness, No confusion, No vertigo ED Past Medical History - Past Medical History Obtainable: Yes Past Medical History: HTN, DM, Asthma/COPD, DVT/PE, Dyslipidemia Family History: Diabetes Melitus, HTN Social History: Smoker, No Alcohol, No Drug Use, Single, Care Facility Surgical History: other (Tracheostomy) Psychiatricy History: None Medication: Reviewed Family Medical History - Family Member Mother History Unknown: Yes Ethnicity: Living Status: Unknown Hx Family Hypertension: Yes Hx Family Diabetes: Yes ED Physical Exam - Physical Examination General/Constitutional: Awake, Well-developed, well-nourished, Alert, No distress, GCS 15, Non-toxic appearing, Ambulatory Head: Atraumatic Eyes: Lids, conjuctiva normal, PERRL, EOMI Skin: Nl inspection, No rash, No skin lesions, No ecchymosis, No lymphadenopathy Other Skin comments:: poor turgor with dry MM ENMT: External ears, nose nl, TM canals nl, Nasal exam nl, Lips, teeth, gums nl , Oropharynx nl, Tonsils nl Neck: Nontender, Full ROM w/o pain, No JVD, No nuchal rigidity, No bruit, No mass, No stridor Respiratory: Nl effort/Exclusion, Clear to Auscultation, No Wheeze/Rhonchi/Rales Cardio Vascular: RRR, No murmur, gallop, rubs, NL S1 S2, Carotid/Femoral/Distal pulses equal bilaterally GI: No tenderness/rebounding/guarding, No organomegaly, No hernia, Normal BS's, Nondistended, No mass/bruits, No McBurney tenderness, Rectum exam nl : No CVA tenderness Extremities: No tenderness or effusion, Full ROM, normal strength in all extremities, No edema, Normal digits & nails Neuro/Psych: Alert/oriented, DTR's symmetric, Normal sensory exam, Normal motor strength, Judgement/insight normal, Mood normal, Normal gait, No focal deficits Misc: Normal back, No paraspinal tenderness ED Labs/Radiology/EKG Results - Lab Results Comments:: H/H: 11.8/35.3; Na+: 151; Cl-: 114; BUN: 120; Cr: 1.9; Glucose: 337; LA: 2.68 - Radiology Results Comments:: NAD - EKG Interpretations EKG Time:: 11:44 Rate & Rhythm: 94; NSR Comments:: old IWMI; non-specific st-t changes ED Septic Shock - . Is Septic Shock (SBP<90, OR Lactate>4 mmol\L) present?: No ED Reassessment (Disposition) - Reassessment Reassessment Condition:: Improved - Diagnosis Diagnosis:: Dx: Anemia; Dehydration; Hypernatremia; AMS; ALOC; Sepsis; Hyperglycemia; DM; Pre-Renal Azotemia - Aftercare/Follow up Instructions Aftercare/Follow-Up Instructions:: Counseled pt regarding lab results/diagnosis & need follow up, Counseled pt & family regarding lab results/diagnosis & need follow up - Patient Disposition Discharge/Transfer:: Acute Care w/in this hosp Accepting Physician:: Dr. Mcconnell Time Called:: 1230 Time Responded:: 12:30 Admitted to:: Telemetry Spoke to:: Dr. Mcconnell Admitting Medical Physician:: Dr. Mcconnell Condition at Disposition:: Stable, Improved
[2017-10-19 11:56] LABS: % BASOPHILS 0.7 % (0.0-2.0); % EOSINOPHILS 3.1 % (0.0-5.0); % LYMPHOCYTES 34.6 % (20.0-50.0); % MONOCYTES 7.8 % (2.0-10.0); % NEUTROPHILS 53.8 % (40.0-80.0); BASOPHILE ABSOLUTE 0.1 Th/cumm (0-0.2); EOSINOPHILE ABSOLUTE 0.3 Th/cmm (0.1-0.4); HEMATOCRIT 35.3 % (41.0-60); HEMOGLOBIN 11.8 gm/dL (12-16); LYMPHOCYTE ABSOLUTE 2.9 Th/cmm (1.5-3.0); MEAN CELL VOLUME 101.7 fl (80-99); MEAN CORPUSCULAR HGB CONC 33.4 pg (28.0-36.0); MEAN PLATELET VOLUME 9.7 fl; MONOCYTE ABSOLUTE 0.7 Th/cmm (0.3-1.0); NEUTROPHILE ABSOLUTE 4.4 Th/cmm (1.8-8.0); PLATELET COUNT 164 Th/cmm (150-400); RED BLOOD COUNT 3.47 Mil/cmm (3.80-5.80); RED CELL DISTRIBUTION WIDTH 22.1 % (11.5-20.0); WHITE BLOOD COUNT 8.4 Th/cmm (4.8-10.8)
[2017-10-19 12:10] LABS: INR 0.99 (0.5-1.4); PROTHROMBIN TIME (TEST) 10.3 SECONDS (9.5-11.5)
[2017-10-19 12:16] LABS: ALB/GLOB RATIO 0.6 (1.0-1.8); ALBUMIN 3.1 gm/dL (4.2-5.5); ALKALINE PHOSPHATASE 90 U/L (34-104); AMYLASE SERUM 27 U/L (29-103); ANION GAP 13.1 (7.0-16.0); BILIRUBIN,TOTAL 0.3 mg/dL (0.3-1.0); CARBON DIOXIDE 28.3 mEq/L (21.0-31.0); CHLORIDE 114 mEq/L (98-107); CREATININE - SERUM 1.9 mg/dL (0.7-1.3); CREATININE KINASE 25 U/L (30-223); GLUCOSE 337 mg/dL (70-105); LIPASE 48 U/L (11-82); POTASSIUM SERUM 4.4 mEq/L (3.5-5.1); SGOT 17 U/L (13-39); SGPT/ALT 8 U/L (7-52)
[2017-10-19 12:22] LABS: BUN - UREA NITROGEN 120 mg/dL (7-25); SODIUM SERUM 151 mEq/L (136-145)
[2017-10-19] MEDS ORDERED: cefTRIAXone 1 GM in Sodium Chloride 0.9% 50 ML IV ONE (12:56)
[2017-10-19] MEDS ORDERED: INSULIN HUMAN REGULAR 100 UNITS/ML UNIT SUBQ ONE (12:57)
[2017-10-19] MEDS ORDERED: INSULIN HUMAN REGULAR 100 UNITS/ML UNIT ONE (14:21)
[2017-10-19 15:48] LABS: A1C % 7.7 % (4.0-6.0)
[2017-10-19] MEDS: Sodium Chloride 0.45% 1,000 ML IV SCH (18:21)
[2017-10-19] MEDS ORDERED: INSULIN ASPART SLIDING SCALE 100 UNITS/ML UNIT SUBQ SCH (21:00)
[2017-10-19 22:06] VITALS: BP 106/69
[2017-10-19] MEDS ORDERED: Fleet Enema 135 mL RC PRN (22:20)
[2017-10-19] MEDS ORDERED: ACETAMINOPHEN GT PRN (22:20)
[2017-10-19] MEDS ORDERED: Magnesium Hydroxide (MOM) 30 mL UDC GT PRN (22:20)
[2017-10-19] MEDS ORDERED: DARBEPOETIN ALFA IN POLYSORBAT 25 MCG SUBQ SCH (22:30)
[2017-10-20] MEDS: Levetiracetam 500 mg/5mL 5mL UDSyr *for ORAL USE ONLY GT SCH ×2 (00:26→12:30)
[2017-10-20] MEDS: Sodium Chloride 0.45% 1,000 ML IV SCH ×2 (06:12→19:50)
[2017-10-20] MEDS: INSULIN ASPART SLIDING SCALE 100 UNITS/ML UNIT SUBQ SCH ×4 (06:56→21:58)
[2017-10-20 06:59] LABS: % BASOPHILS 0.4 % (0.0-2.0); % EOSINOPHILS 3.7 % (0.0-5.0); % LYMPHOCYTES 19.5 % (20.0-50.0); % MONOCYTES 7.4 % (2.0-10.0); EOSINOPHILE ABSOLUTE 0.2 Th/cmm (0.1-0.4); HEMATOCRIT 31.8 % (41.0-60); HEMOGLOBIN 11.1 gm/dL (12-16); LYMPHOCYTE ABSOLUTE 1.3 Th/cmm (1.5-3.0); MEAN CELL VOLUME 101.6 fl (80-99); MEAN CORPUSCULAR HEMOGLOBIN 35.4 pg (27.0-31.0); MEAN CORPUSCULAR HGB CONC 34.9 pg (28.0-36.0); MEAN PLATELET VOLUME 9.5 fl; MONOCYTE ABSOLUTE 0.5 Th/cmm (0.3-1.0); NEUTROPHILE ABSOLUTE 4.6 Th/cmm (1.8-8.0); PLATELET COUNT 137 Th/cmm (150-400); RED BLOOD COUNT 3.13 Mil/cmm (3.80-5.80); WHITE BLOOD COUNT 6.6 Th/cmm (4.8-10.8)
[2017-10-20 08:27] LABS: ALB/GLOB RATIO 0.6 (1.0-1.8); ALBUMIN 2.7 gm/dL (4.2-5.5); ALKALINE PHOSPHATASE 66 U/L (34-104); ANION GAP 12.9 (7.0-16.0); BILIRUBIN,TOTAL 0.3 mg/dL (0.3-1.0); CALCIUM SERUM 9.6 mg/dL (8.6-10.3); CARBON DIOXIDE 24.7 mEq/L (21.0-31.0); CHLORIDE 114 mEq/L (98-107); CHOLESTEROL 110 mg/dL (<200); CREATININE - SERUM 1.7 mg/dL (0.7-1.3); GLUCOSE 408 mg/dL (70-105); HDL -HIGH DENSITY LIPOPROTEIN 25 mg/dL (23-92); POTASSIUM SERUM 4.6 mEq/L (3.5-5.1); SGOT 23 U/L (13-39); SGPT/ALT 10 U/L (7-52); SODIUM SERUM 147 mEq/L (136-145); TOTAL PROTEIN,SERUM 7.2 gm/dL (6.0-8.3); TRIGLYCERIDES 536 mg/dL (<150)
[2017-10-20 08:32] LABS: BUN - UREA NITROGEN 106 mg/dL (7-25)
[2017-10-20] MEDS: Pantoprazole 40 mg/Packet GT SCH (08:46)
[2017-10-20] MEDS: Levothyroxine 0.05 Mg Tab GT SCH (08:48)
[2017-10-20] MEDS ORDERED: GLUTAMINE GT SCH (09:00)
[2017-10-20] MEDS ORDERED: ARGININE GT SCH (09:00)
[2017-10-20] MEDS ORDERED: CALCIUM HMB GT SCH (09:00)
[2017-10-20] MEDS ORDERED: Non-Formulary Item 1 EA (Cran/Vitc/Mannose/Fos/Bromeln [Uti-Stat Liquid] 30 ML) GT SCH (09:00)
[2017-10-20] MEDS: Multivitamin w/ Minerals Tab GT SCH (10:09)
[2017-10-20] MEDS: Insulin Detemir 100 units/mL 10mL Vial SUBQ SCH (22:00)
--- NOTE | 2017-10-20 23:11 | History & Physical ---
ADMIT DATE: 10/19/2017 HISTORY OF PRESENT ILLNESS: Very well known to me patient from the [facility]. The patient is known to have history of G-tube . The patient has been very altered level. The patient has abnormal lab including high BUN and creatinine indicating prerenal azotemia, acute renal failure, and acute kidney injury. The patient came to the ER and was found to have urinary tract infection as well and dehydration, who was admitted. PAST MEDICAL HISTORY: As enumerated above. PAST SURGICAL HISTORY: As enumerated above. REVIEW OF SYSTEMS: Difficult to obtain because of the patient's condition, has a history of hypertension, diabetes, COPD, DVT, hyperlipidemia. PAST SURGICAL HISTORY: History of tracheostomy. PHYSICAL EXAMINATION: GENERAL: The patient is awake and is confused. HEAD: Normal. ENT: Normal. NECK: Supple, nontender. LUNGS: Clear. CARDIOVASCULAR SYSTEM: S1, S2 heard. ABDOMEN: Soft. Bowel sounds are heard. CENTRAL NERVOUS SYSTEM: Decreased sensorium. LABORATORY DATA: Hemoglobin 11.8 and sodium was very high 151, BUN high 20, creatinine 1.9. DIAGNOSES: Acute dehydration, acute renal failure, acute kidney injury, hypernatremia, altered mental status, encephalopathy, sepsis, hyperglycemia, diabetes, status post trach, and status post percutaneous endoscopic gastrostomy. PLAN: The patient is being admitted for intravenous fluids, antibiotics, and I will have Infectious Disease consult as well as Nephrology consult. I will follow the patient. [facility]# [id number]
[2017-10-21] MEDS: Levetiracetam 500 mg/5mL 5mL UDSyr *for ORAL USE ONLY GT SCH ×3 (01:13→23:22)
[2017-10-21] MEDS: Sodium Chloride 0.45% 1,000 ML IV SCH ×2 (05:51→23:19)
--- NOTE | 2017-10-21 06:25 | Consultation ---
DATE OF CONSULTATION: 10/20/2017 REASON FOR CONSULTATION: Worsening kidney function, electrolyte imbalance, and fluid management. HISTORY OF PRESENT ILLNESS: This is a 72-year-old male with past medical history of chronic kidney disease, who came in because of altered level of consciousness. A few hours prior to admission, the patient was found to be barely responsive, which is not his usual self. Labs drawn at that time revealed a BUN/creatinine of 114/1.95 with sodium of 152. Urinalysis was suggestive of candiduria. His sodium level was 147 with a BUN/creatinine of 106/1.7 at the Emergency Room. He had previous admission about a month ago also due to altered level of consciousness and he had a BUN/creatinine of 71/1.3. There is no diarrhea nor a history of nausea and vomiting. PAST MEDICAL HISTORY: 1. Chronic kidney disease. 2. Alzheimer dementia. 3. Essential hypertension. 4. Type 2 diabetes mellitus. 5. Coronary artery disease. 6. Status post CVA. 7. COPD. 8. Dyslipidemia. 9. Bronchial asthma. 10. Peptic ulcer disease. 11. GERD. PAST SURGICAL HISTORY: Status post PEG placement. CURRENT MEDICATIONS: He is currently on acetaminophen, allopurinol, ascorbic acid, aspirin, bisacodyl, cranberry and vitamin C, Epogen, docusate sodium, aspart, detemir, Keppra, Synthroid, multivitamins with mineral, ondansetron, pantoprazole, valproic acid, and zinc sulfate. ALLERGIES: No known drug allergies. SOCIAL AND FAMILY HISTORY: I was not able to obtain directly from the patient because he is currently nonverbal. REVIEW OF SYSTEMS: Again, I was not able to decipher directly from the patient because of the same reason. PHYSICAL EXAMINATION: GENERAL: The patient is arousable, but remains nonverbal, not in any distress. VITAL SIGNS: Blood pressure 149/83, pulse 76, temperature 98.2 degrees. SKIN: Poor turgor, warm, no rash, no jaundice appreciated. HEENT: Head: Normocephalic, atraumatic. Eyes: Unable to assess his extraocular muscles. Pupils are equal, round, reactive to light and accommodates. Anicteric sclerae. Nose: Midline nasal septum. Mouth: Very dry mucosa with poor dentition. NECK: Supple, no adenopathy, no thyromegaly, and no bruits. Trachea palpated in the midline. CHEST AND CVS: Distant heart sounds, S1, S2. No rub, murmur nor gallop appreciated. Point of maximal impulse fifth intercostal space, left midclavicular line. No abdominal or femoral bruits appreciated. LUNGS: Equal expansion. No use of accessory muscles. No supraclavicular retractions. Decreased breath sounds. ABDOMEN: Mildly globular, soft. Positive for bowel sounds. No bruits either diastolic or systolic. RECTAL: Lax sphincter tone. GENITOURINARY: Normal appearing male genitalia. MUSCULOSKELETAL: No effusions present in his joints with limited range of motion. EXTREMITIES: No evidence of any edema in his extremities. He has a small ulcer over his right heel. He has a palpable femoral, but unable to fully appreciate popliteal and dorsalis pedis pulses. He has atrophic muscles in his lower extremities. NEUROLOGIC: The patient, as mentioned, is occasionally arousable, but falls back to sleep, so I was not able to pursue further by neuro exam. LABORATORY AND DIAGNOSTIC DATA: White count 6.6, hemoglobin 11.1, hematocrit 31.8, platelets 137, and polys 69%. Sodium is 147, potassium 4.6, chloride 114, CO2 24.7, BUN is 106, creatinine is 1.7, glucose is 393-408, and albumin is 2.7. IMPRESSION: 1. Acute kidney injury on chronic kidney disease. MDRD GFR of 34 mL per minute, stage 3. The patient initially developed prerenal azotemia. Although he has a gastrostomy tube feeding, this may not be enough to replenish both sensible and insensible fluid losses. His physical exam revealed poor skin turgor with dry oral mucosa. He has a significant BUN to creatinine ratio. These is suggestive of some underlying dehydration. Thus, his prerenal azotemia may have progressed to acute tubular injury. He also has candiduria which could eventually also cause development of acute interstitial nephritis. 2. Severe malnutrition. 3. Altered level of consciousness, possibly metabolic in nature (uremia along with sepsis). 4. Alzheimer dementia. 5. Essential hypertension. 6. Type 2 diabetes mellitus with CKD. 7. Coronary artery disease. 8. Status post CVA. 9. COPD. 10. Dyslipidemia. 11. Bronchial asthma. 12. Hypernatremia secondary to dehydration. PLAN: 1. Switch IV fluids to half NS because blood glucose is quite elevated. 2. Urinalysis. 3. Urine spot sodium, eosinophils and creatinine. 4. Microalbumin to creatinine ratio. 5. Renal ultrasound. 6. Follow up electrolytes, urinalysis as well as TSH levels. 7. Start the patient on Diflucan. Thank you Dr. Mcconnell for this consult. We will follow the patient closely with you. [facility]# [id number]
[2017-10-21 06:40] LABS: % BASOPHILS 0.2 % (0.0-2.0); % EOSINOPHILS 6.5 % (0.0-5.0); % LYMPHOCYTES 40.1 % (20.0-50.0); % MONOCYTES 6.8 % (2.0-10.0); % NEUTROPHILS 46.4 % (40.0-80.0); EOSINOPHILE ABSOLUTE 0.5 Th/cmm (0.1-0.4); HEMATOCRIT 35.5 % (41.0-60); HEMOGLOBIN 11.6 gm/dL (12-16); LYMPHOCYTE ABSOLUTE 2.8 Th/cmm (1.5-3.0); MEAN CORPUSCULAR HEMOGLOBIN 34.6 pg (27.0-31.0); MEAN CORPUSCULAR HGB CONC 32.8 pg (28.0-36.0); MONOCYTE ABSOLUTE 0.5 Th/cmm (0.3-1.0); NEUTROPHILE ABSOLUTE 3.2 Th/cmm (1.8-8.0); PLATELET COUNT 116 Th/cmm (150-400); RED BLOOD COUNT 3.37 Mil/cmm (3.80-5.80); RED CELL DISTRIBUTION WIDTH 22.5 % (11.5-20.0)
[2017-10-21 06:42] LABS: MEAN CELL VOLUME 105.4 fl (80-99)
[2017-10-21] MEDS: INSULIN ASPART SLIDING SCALE 100 UNITS/ML UNIT SUBQ SCH ×3 (06:44→22:35)
[2017-10-21 06:56] LABS: ANION GAP 13.4 (7.0-16.0); CARBON DIOXIDE 23.4 mEq/L (21.0-31.0); CHLORIDE 118 mEq/L (98-107); CREATININE - SERUM 1.7 mg/dL (0.7-1.3); MAGNESIUM 2.9 mg/dL (1.9-2.7); PHOSPHOROUS 3.8 mg/dL (2.5-5.0); POTASSIUM SERUM 4.8 mEq/L (3.5-5.1); SODIUM SERUM 150 mEq/L (136-145); URIC ACID 5.5 mg/dL (4.4-7.6)
[2017-10-21 06:57] LABS: BUN - UREA NITROGEN 91 mg/dL (7-25); GLUCOSE 254 mg/dL (70-105)
--- NOTE | 2017-10-21 07:55 | Diagnostic Imaging Report ---
Renal ultrasound HISTORY: Renal failure. COMPARISON: Previous renal ultrasound on 09/13/[address] abdomen and pelvis on 01/28/2016 Technique: Sonography of the kidneys and urinary bladder was performed in multiple planes. FINDINGS: Exam is limited due to body habitus of patient's medical condition. The right kidney measures 8.7 x 5.7 cm demonstrating increased echogenicity. The renal margins are poorly defined, however, no evidence of focal lesions or hydronephrosis. The left kidney measures 11.8 x 6.0 cm. There is increased echogenicity of the left kidney. The left renal margin is not well-defined, however, no evidence of focal lesions or hydronephrosis. The urinary bladder volume measures 76 mL's. Note due to patient's medical condition, post with residual bladder volumes are not able to be obtained. IMPRESSION: Limited exam due to patient's medical condition and body habitus No evidence of hydronephrosis. Increased echogenicity of the kidneys which may be due to underlying medical renal disease.
--- NOTE | 2017-10-21 08:03 | General Progress Note ---
Subjective - Review of Systems Events since last encounter: patient is awake in no distress confused Objective - Results Result Diagrams: 10/21/17 06:10 10/21/17 06:10 Recent Labs: Laboratory Last Values WBC 7.0 Th/cmm (4.8-10.8) 10/21/17 06:10 RBC 3.37 Mil/cmm (3.80-5.80) L 10/21/17 06:10 Hgb 11.6 gm/dL (12-16) L 10/21/17 06:10 Hct 35.5 % (41.0-60) L 10/21/17 06:10 MCV 105.4 fl (80-99) H 10/21/17 06:10 MCH 34.6 pg (27.0-31.0) H 10/21/17 06:10 MCHC Differential 32.8 pg (28.0-36.0) 10/21/17 06:10 RDW 22.5 % (11.5-20.0) H 10/21/17 06:10 Plt Count 116 Th/cmm (150-400) L 10/21/17 06:10 MPV 10.0 fl 10/21/17 06:10 Neutrophils % 46.4 % (40.0-80.0) 10/21/17 06:10 Lymphocytes % 40.1 % (20.0-50.0) 10/21/17 06:10 Monocytes % 6.8 % (2.0-10.0) 10/21/17 06:10 Eosinophils % 6.5 % (0.0-5.0) H 10/21/17 06:10 Basophils % 0.2 % (0.0-2.0) 10/21/17 06:10 PT 10.3 SECONDS (9.5-11.5) 10/19/17 11:45 INR 0.99 (0.5-1.4) 10/19/17 11:45 PTT (Actin FS) 21.4 SECONDS (26.0-38.0) L 10/19/17 11:45 Sodium 150 mEq/L (136-145) H 10/21/17 06:10 Potassium 4.8 mEq/L (3.5-5.1) 10/21/17 06:10 Chloride 118 mEq/L (98-107) H 10/21/17 06:10 Carbon Dioxide 23.4 mEq/L (21.0-31.0) 10/21/17 06:10 Anion Gap 13.4 (7.0-16.0) 10/21/17 06:10 BUN 91 mg/dL (7-25) H* 10/21/17 06:10 Creatinine 1.7 mg/dL (0.7-1.3) H 10/21/17 06:10 Est GFR ( Amer) TNP 10/21/17 06:10 Est GFR (Non-Af Amer) TNP 10/21/17 06:10 BUN/Creatinine Ratio 53.5 10/21/17 06:10 Glucose 254 mg/dL (70-105) H D 10/21/17 06:10 POC Glucose 256 MG/DL (70 - 105) H 10/21/17 05:46 Hemoglobin A1c % 7.7 % (4.0-6.0) H 10/19/17 11:45 Whole Bld Lactic Acid 1.36 mmol/L (0.60-1.99) 10/19/17 13:30 Uric Acid 5.5 mg/dL (4.4-7.6) 10/21/17 06:10 Calcium 9.0 mg/dL (8.6-10.3) 10/21/17 06:10 Phosphorus 3.8 mg/dL (2.5-5.0) 10/21/17 06:10 Magnesium 2.9 mg/dL (1.9-2.7) H 10/21/17 06:10 Total Bilirubin 0.3 mg/dL (0.3-1.0) 10/20/17 06:27 AST 23 U/L (13-39) 10/20/17 06:27 ALT 10 U/L (7-52) 10/20/17 06:27 Alkaline Phosphatase 66 U/L (34-104) 10/20/17 06:27 Creatine Kinase 25 U/L (30-223) L 10/19/17 11:45 Troponin I 0.03 ng/mL (0.01-0.05) 10/19/17 11:45 Total Protein 7.2 gm/dL (6.0-8.3) 10/20/17 06:27 Albumin 2.7 gm/dL (4.2-5.5) L 10/20/17 06:27 Globulin 4.5 gm/dL 10/20/17 06:27 Albumin/Globulin Ratio 0.6 (1.0-1.8) L 10/20/17 06:27 Triglycerides 536 mg/dL (<150) H 10/20/17 06:27 Cholesterol 110 mg/dL (<200) 10/20/17 06:27 LDL Cholesterol Direct 54 mg/dL (75-193) L 10/20/17 06:27 HDL Cholesterol 25 mg/dL (23-92) 10/20/17 06:27 Amylase 27 U/L (29-103) L 10/19/17 11:45 Lipase 48 U/L (11-82) 10/19/17 11:45 TSH 5.73 uIU/ml (0.34-5.60) H 10/21/17 06:10 - Physical Exam Vitals and I&O: Vital Signs Temp 99.2 F 10/21/17 04:00 Pulse 98 10/21/17 04:00 Resp 18 10/21/17 04:00 BP 119/65 10/21/17 04:00 Pulse Ox 93 10/21/17 04:00 Intake & Output 10/20/17 10/21/17 10/21/17 18:59 06:59 18:59 Intake Total 200 2100 Balance 200 2100 Weight (lbs) 76.067 kg 76.209 kg Intake: Intake, IV Amount 1000 Sodium Chloride 0.45% 1, 1000 000 ml @ 100 mls/hr IV . Q10H [facility] Rx#:[id number] Tube Feeding 200 800 Other 300 Other: # Voids 2 2 # Bowel Movements 1 1 Weight Source Bedscale Bedscale Active Medications: Current Medications Acetaminophen (Tylenol Extra Strength) 500 mg GT Q4H PRN PRN Reason: Pain (Moderate) Stop: 12/18/17 22:19 Allopurinol (Zyloprim) 300 mg GT DAILY [facility] Stop: 12/19/17 08:59 Last Admin: 10/20/17 08:46 Dose: 300 mg Ascorbic Acid (Vitamin C) 500 mg GT DAILY [facility] Stop: 12/19/17 08:59 Last Admin: 10/20/17 08:48 Dose: 500 mg Aspirin (Ecotrin) 81 mg PO DAILY [facility] Stop: 12/19/17 08:59 Last Admin: 10/20/17 08:47 Dose: 81 mg Bisacodyl (Dulcolax 10 Mg Supp) 10 mg RC DAILY PRN PRN Reason: Constipation Stop: 12/18/17 22:19 Docusate Sodium (Colace) 100 mg PO DAILY [facility] Stop: 12/19/17 08:59 Last Admin: 10/20/17 08:51 Dose: 100 mg Fluconazole (Diflucan) 100 mg PO DAILY [facility] Stop: 12/19/17 13:59 Last Admin: 10/20/17 14:26 Dose: 100 mg Sodium Chloride (Nacl 0.45%) 1,000 mls @ 100 mls/hr IV .Q10H [facility] Stop: 12/19/17 13:44 Last Admin: 10/21/17 05:51 Dose: 100 mls/hr Insulin Aspart (Novolog Insulin Sliding Scale) 0 units SUBQ ACHS [facility]; Protocol Stop: 12/19/17 07:29 Last Admin: 10/21/17 06:44 Dose: 7 units Insulin Detemir (Levemir Insulin) 10 units SUBQ HS [facility]; Protocol Stop: 12/19/17 20:59 Last Admin: 10/20/17 22:00 Dose: 10 units Levetiracetam (Keppra) 1,000 mg GT Q12H [facility] Stop: 12/19/17 00:00 Last Admin: 10/21/17 01:13 Dose: 1,000 mg Levothyroxine Sodium (Synthroid) 0.05 mg GT DAILY [facility] Stop: 12/19/17 08:59 Last Admin: 10/20/17 08:48 Dose: 0.05 mg Magnesium Hydroxide (Milk Of Magnesia) 30 ml GT HS PRN PRN Reason: Constipation Stop: 12/18/17 22:19 Miscellaneous (Darbepoetin Maksim In Polysorbat [Aranesp]) 25 mcg SUBQ QWED [facility] Stop: 12/18/17 22:29 Ondansetron HCl (Zofran Odt) 4 mg PO Q6H PRN PRN Reason: Nausea / Vomiting Stop: 12/18/17 22:19 Pantoprazole Sodium (Protonix) 40 mg GT DAILY [facility] Stop: 12/19/17 08:59 Last Admin: 10/20/17 08:46 Dose: 40 mg Sodium Phosphate (Fleet Enema) 135 ml RC Q2D PRN PRN Reason: Constipation Stop: 12/18/17 22:19 Valproate Sodium (Depakene) 500 mg GT Q6HR [facility] Stop: 12/18/17 00:00 Last Admin: 10/21/17 05:51 Dose: 500 mg Zinc Sulfate (Zinc Sulfate) 220 mg GT DAILY [facility] Stop: 12/19/17 08:59 Last Admin: 10/20/17 08:46 Dose: 220 mg - Procedures Procedures: Procedures Procedure Code Date CHANGE FEEDING DEVICE IN UP INTEST TRACT, SURGICAL GARMENT FITTER APPROACH [id number] 07/21/17 CHANGE GASTROSTOMY TUBE 40227 07/21/17 EXCISION OF DUODENUM, ENDO, DIAGN [id number] 03/25/16 EXCISION OF ESOPHAGOGASTRIC JUNCTION, ENDO, DIAGN [id number] 09/13/17 EXCISION OF SIGMOID COLON, ENDO, DIAGN [id number] 09/13/17 EXCISION OF STOMACH, ENDO, DIAGN [id number] 09/13/17 EXCISION OF STOMACH, PYLORUS, ENDO, DIAGN [id number] 03/25/16 EXCISION OF TRANSVERSE COLON, ENDO, DIAGN [id number] 03/25/16 EXTIRPATION OF MATTER FROM COMMON BILE DUCT, ENDO [id number] 01/28/16 FLUOROSCOPY OF BILE DUCTS USING LOW OSMOLAR CONTRAST [id number] 01/28/16 REMOVAL OF INTRALUMINAL DEVICE FROM HEPATOBILIARY DUCT, ENDO [id number] 01/28/16 TRANSFUSE NONAUT RED BLOOD CELLS IN PERIPH VEIN, PERC [id number] 09/13/17 Nutritional Asmnt/Malnutr-PDOC - Dietary Evaluation Malnutrition Findings (Please click <Entered> for more info): Nutritional Asmnt/Malnutrition Start: 10/20/17 13: 26 Text: Status: Complete Freq: Protocol: Document 10/20/17 13:26 TALA (Rec: 10/20/17 13:33 TALA [email or web address]) Nutritional Asmnt/Malnutrition Patient General Information Nutritional Screening High Risk Consult Diagnosis hypernatremia, dehydration Pertinent Medical Hx/Surgical Hx HTN, DM, asthma/COPD, DVT/PE, dyslipidemia, trach Subjective Information Consult received for high glucose. Pt seen resting in bed at time of visit. Verified TF running at 70ml at this time. So far pt tolerated well per nurse. Current Diet Order/ Nutrition Support glucerna 1.2 70ml x 20hr Pertinent Medications vit C, colace, novolog, levemir, synthroid, protonix, nacl 0.45%, zinc Pertinent Labs 10/20 Na 147, K 4.6, Cl 114, BUN 106 (trending down), Cr 1. 7 (trending down), glucose 408 , POC 234-393 10/19 Na 151, K 4.4, Cl 114, BUN 120, Cr 1.9, glucose 337, A1c 7.7, POC 235-248 Nutritional Hx/Data Height 1.68 m Height (Calculated Centimeters) 167.6 Current Weight (lbs) 76.204 kg Weight (Calculated Kilograms) 76.2 Weight (Calculated Grams) 57169.5 [place] Body Weight 142 Body Mass Index (BMI) 27.1 Weight Status Overweight GI Symptoms GI Symptoms None Last BM not indicated Difficult in: None Skin Integrity/Comment: abrasion to left shoulder, lower scrotum, sacrum, right heel Estimated Nutritional Goals Calories/Kcals/Kg 23-27 based on IBW 62kg Kcals Calculated 8113-3405 Protein g/k monitor renal labs Protein Calculated 62 Fluid: ml per MD Nutritional Problem 1. Problem Problem altered nutrition relatedl abs Etiology renal dysfunction Signs/Symptoms: BUN 106, Cr 1.7 Malnutrition Alert Is there a minimum of two criteria No selected? Query Text:Check all the applicable criteria. A minimum of two criteria are recommended for diagnosis of either severe or non-severe malnutrition. Malnutrition Related to Morbid Obesity Malnutrition related to morbid obesity No Intervention/Recommendation Comments 1. Continue with current TF regimen. It provides 1680kcal, 84g protein, 1145ml free water, meeting 100% of nutritional needs. If BUN/Cr continue high, will recommend decrease TF rate or switch to [place] for lower protein needs. 2. Monitor TF rate, tolerance, wt, skin integrity and labs 3. F/U as high risk in 2-3 days, 10/22-10/23 Expected Outcomes/Goals Expected Outcomes/Goals 1. Pt to meet at least 75% of nutritional needs via nutrition support with tolerance 2. Wt stability, skin to remain intact, labs to approach WNL.
[2017-10-21] MEDS: Pantoprazole 40 mg/Packet GT SCH (10:51)
[2017-10-21] MEDS: Levothyroxine 0.05 Mg Tab GT SCH (10:51)
[2017-10-21] MEDS: Multivitamin w/ Minerals Tab GT SCH (10:52)
--- NOTE | 2017-10-21 15:09 | General Progress Note ---
Subjective - Review of Systems Service Date: 10/21/17 Subjective: sleeping, comfortable Objective - Results Result Diagrams: 10/21/17 06:10 10/21/17 06:10 Recent Labs: Laboratory Last Values WBC 7.0 Th/cmm (4.8-10.8) 10/21/17 06:10 RBC 3.37 Mil/cmm (3.80-5.80) L 10/21/17 06:10 Hgb 11.6 gm/dL (12-16) L 10/21/17 06:10 Hct 35.5 % (41.0-60) L 10/21/17 06:10 MCV 105.4 fl (80-99) H 10/21/17 06:10 MCH 34.6 pg (27.0-31.0) H 10/21/17 06:10 MCHC Differential 32.8 pg (28.0-36.0) 10/21/17 06:10 RDW 22.5 % (11.5-20.0) H 10/21/17 06:10 Plt Count 116 Th/cmm (150-400) L 10/21/17 06:10 MPV 10.0 fl 10/21/17 06:10 Neutrophils % 46.4 % (40.0-80.0) 10/21/17 06:10 Lymphocytes % 40.1 % (20.0-50.0) 10/21/17 06:10 Monocytes % 6.8 % (2.0-10.0) 10/21/17 06:10 Eosinophils % 6.5 % (0.0-5.0) H 10/21/17 06:10 Basophils % 0.2 % (0.0-2.0) 10/21/17 06:10 PT 10.3 SECONDS (9.5-11.5) 10/19/17 11:45 INR 0.99 (0.5-1.4) 10/19/17 11:45 PTT (Actin FS) 21.4 SECONDS (26.0-38.0) L 10/19/17 11:45 Sodium 150 mEq/L (136-145) H 10/21/17 06:10 Potassium 4.8 mEq/L (3.5-5.1) 10/21/17 06:10 Chloride 118 mEq/L (98-107) H 10/21/17 06:10 Carbon Dioxide 23.4 mEq/L (21.0-31.0) 10/21/17 06:10 Anion Gap 13.4 (7.0-16.0) 10/21/17 06:10 BUN 91 mg/dL (7-25) H* 10/21/17 06:10 Creatinine 1.7 mg/dL (0.7-1.3) H 10/21/17 06:10 Est GFR ( Amer) TNP 10/21/17 06:10 Est GFR (Non-Af Amer) TNP 10/21/17 06:10 BUN/Creatinine Ratio 53.5 10/21/17 06:10 Glucose 254 mg/dL (70-105) H D 10/21/17 06:10 POC Glucose 123 MG/DL (70 - 105) H 10/21/17 11:59 Hemoglobin A1c % 7.7 % (4.0-6.0) H 10/19/17 11:45 Whole Bld Lactic Acid 1.36 mmol/L (0.60-1.99) 10/19/17 13:30 Uric Acid 5.5 mg/dL (4.4-7.6) 10/21/17 06:10 Calcium 9.0 mg/dL (8.6-10.3) 10/21/17 06:10 Phosphorus 3.8 mg/dL (2.5-5.0) 10/21/17 06:10 Magnesium 2.9 mg/dL (1.9-2.7) H 10/21/17 06:10 Total Bilirubin 0.3 mg/dL (0.3-1.0) 10/20/17 06:27 AST 23 U/L (13-39) 10/20/17 06:27 ALT 10 U/L (7-52) 10/20/17 06:27 Alkaline Phosphatase 66 U/L (34-104) 10/20/17 06:27 Creatine Kinase 25 U/L (30-223) L 10/19/17 11:45 Troponin I 0.03 ng/mL (0.01-0.05) 10/19/17 11:45 Total Protein 7.2 gm/dL (6.0-8.3) 10/20/17 06:27 Albumin 2.7 gm/dL (4.2-5.5) L 10/20/17 06:27 Globulin 4.5 gm/dL 10/20/17 06:27 Albumin/Globulin Ratio 0.6 (1.0-1.8) L 10/20/17 06:27 Triglycerides 536 mg/dL (<150) H 10/20/17 06:27 Cholesterol 110 mg/dL (<200) 10/20/17 06:27 LDL Cholesterol Direct 54 mg/dL (75-193) L 10/20/17 06:27 HDL Cholesterol 25 mg/dL (23-92) 10/20/17 06:27 Amylase 27 U/L (29-103) L 10/19/17 11:45 Lipase 48 U/L (11-82) 10/19/17 11:45 TSH 5.73 uIU/ml (0.34-5.60) H 10/21/17 06:10 - Physical Exam Vitals and I&O: Vital Signs Temp 98.6 F 10/21/17 12:00 Pulse 81 10/21/17 12:00 Resp 19 10/21/17 12:00 BP 132/75 10/21/17 12:00 Pulse Ox 93 10/21/17 04:00 Intake & Output 10/20/17 10/21/17 10/21/17 18:59 06:59 18:59 Intake Total 200 2100 Balance 200 2100 Weight (lbs) 76.067 kg 76.209 kg Intake: Intake, IV Amount 1000 Sodium Chloride 0.45% 1, 1000 000 ml @ 100 mls/hr IV . Q10H [facility] Rx#:[id number] Tube Feeding 200 800 Other 300 Other: # Voids 2 2 # Bowel Movements 1 1 Weight Source Bedscale Bedscale Active Medications: Current Medications Acetaminophen (Tylenol Extra Strength) 500 mg GT Q4H PRN PRN Reason: Pain (Moderate) Stop: 12/18/17 22:19 Allopurinol (Zyloprim) 300 mg GT DAILY [facility] Stop: 12/19/17 08:59 Last Admin: 10/21/17 10:52 Dose: 300 mg Ascorbic Acid (Vitamin C) 500 mg GT DAILY [facility] Stop: 12/19/17 08:59 Last Admin: 10/21/17 10:52 Dose: 500 mg Aspirin (Ecotrin) 81 mg PO DAILY [facility] Stop: 12/19/17 08:59 Last Admin: 10/21/17 10:51 Dose: 81 mg Bisacodyl (Dulcolax 10 Mg Supp) 10 mg RC DAILY PRN PRN Reason: Constipation Stop: 12/18/17 22:19 Docusate Sodium (Colace) 100 mg PO DAILY [facility] Stop: 12/19/17 08:59 Last Admin: 10/21/17 10:52 Dose: 100 mg Fluconazole (Diflucan) 100 mg PO DAILY [facility] Stop: 12/19/17 13:59 Last Admin: 10/21/17 10:52 Dose: 100 mg Sodium Chloride (Nacl 0.45%) 1,000 mls @ 100 mls/hr IV .Q10H [facility] Stop: 12/19/17 13:44 Last Admin: 10/21/17 05:51 Dose: 100 mls/hr Insulin Aspart (Novolog Insulin Sliding Scale) 0 units SUBQ ACHS [facility]; Protocol Stop: 12/19/17 07:29 Last Admin: 10/21/17 12:23 Dose: Not Given Insulin Detemir (Levemir Insulin) 10 units SUBQ HS [facility]; Protocol Stop: 12/19/17 20:59 Last Admin: 10/20/17 22:00 Dose: 10 units Levetiracetam (Keppra) 1,000 mg GT Q12H [facility] Stop: 12/19/17 00:00 Last Admin: 10/21/17 12:35 Dose: 1,000 mg Levothyroxine Sodium (Synthroid) 0.05 mg GT DAILY [facility] Stop: 12/19/17 08:59 Last Admin: 10/21/17 10:51 Dose: 0.05 mg Magnesium Hydroxide (Milk Of Magnesia) 30 ml GT HS PRN PRN Reason: Constipation Stop: 12/18/17 22:19 Miscellaneous (Darbepoetin Maksim In Polysorbat [Aranesp]) 25 mcg SUBQ QWED [facility] Stop: 12/18/17 22:29 Ondansetron HCl (Zofran Odt) 4 mg PO Q6H PRN PRN Reason: Nausea / Vomiting Stop: 12/18/17 22:19 Pantoprazole Sodium (Protonix) 40 mg GT DAILY [facility] Stop: 12/19/17 08:59 Last Admin: 10/21/17 10:51 Dose: 40 mg Sodium Phosphate (Fleet Enema) 135 ml RC Q2D PRN PRN Reason: Constipation Stop: 12/18/17 22:19 Valproate Sodium (Depakene) 500 mg GT Q6HR [facility] Stop: 12/18/17 00:00 Last Admin: 10/21/17 13:33 Dose: 500 mg Zinc Sulfate (Zinc Sulfate) 220 mg GT DAILY [facility] Stop: 12/19/17 08:59 Last Admin: 10/21/17 10:51 Dose: 220 mg General: No acute distress HEENT: Atraumatic, Mucous membr. 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 [id number] 07/21/17 CHANGE GASTROSTOMY TUBE 55485 07/21/17 EXCISION OF DUODENUM, ENDO, DIAGN [id number] 03/25/16 EXCISION OF ESOPHAGOGASTRIC JUNCTION, ENDO, DIAGN [id number] 09/13/17 EXCISION OF SIGMOID COLON, ENDO, DIAGN [id number] 09/13/17 EXCISION OF STOMACH, ENDO, DIAGN [id number] 09/13/17 EXCISION OF STOMACH, PYLORUS, ENDO, DIAGN [id number] 03/25/16 EXCISION OF TRANSVERSE COLON, ENDO, DIAGN [id number] 03/25/16 EXTIRPATION OF MATTER FROM COMMON BILE DUCT, ENDO [id number] 01/28/16 FLUOROSCOPY OF BILE DUCTS USING LOW OSMOLAR CONTRAST [id number] 01/28/16 REMOVAL OF INTRALUMINAL DEVICE FROM HEPATOBILIARY DUCT, ENDO [id number] 01/28/16 TRANSFUSE NONAUT RED BLOOD CELLS IN PERIPH VEIN, PERC 10271T3 09/13/17 Assessment/Plan - Assessment Assessment: BAN on CKD Ess Htn Severe Malnutrition T2DM w/ CKD CAD S/P CVA COPD Hypernatremia - Plan Plan: Lab - Result Diagrams 10/21/17 06:10 10/21/17 06:10 Current Medications Acetaminophen (Tylenol Extra Strength) 500 mg GT Q4H PRN PRN Reason: Pain (Moderate) Stop: 12/18/17 22:19 Allopurinol (Zyloprim) 300 mg GT DAILY [facility] Stop: 12/19/17 08:59 Last Admin: 10/21/17 10:52 Dose: 300 mg Ascorbic Acid (Vitamin C) 500 mg GT DAILY [facility] Stop: 12/19/17 08:59 Last Admin: 10/21/17 10:52 Dose: 500 mg Aspirin (Ecotrin) 81 mg PO DAILY [facility] Stop: 12/19/17 08:59 Last Admin: 10/21/17 10:51 Dose: 81 mg Bisacodyl (Dulcolax 10 Mg Supp) 10 mg RC DAILY PRN PRN Reason: Constipation Stop: 12/18/17 22:19 Docusate Sodium (Colace) 100 mg PO DAILY [facility] Stop: 12/19/17 08:59 Last Admin: 10/21/17 10:52 Dose: 100 mg Fluconazole (Diflucan) 100 mg PO DAILY [facility] Stop: 12/19/17 13:59 Last Admin: 10/21/17 10:52 Dose: 100 mg Sodium Chloride (Nacl 0.45%) 1,000 mls @ 100 mls/hr IV .Q10H [facility] Stop: 12/19/17 13:44 Last Admin: 10/21/17 05:51 Dose: 100 mls/hr Insulin Aspart (Novolog Insulin Sliding Scale) 0 units SUBQ ACHS [facility]; Protocol Stop: 12/19/17 07:29 Last Admin: 10/21/17 12:23 Dose: Not Given Insulin Detemir (Levemir Insulin) 10 units SUBQ HS [facility]; Protocol Stop: 12/19/17 20:59 Last Admin: 10/20/17 22:00 Dose: 10 units Levetiracetam (Keppra) 1,000 mg GT Q12H [facility] Stop: 12/19/17 00:00 Last Admin: 10/21/17 12:35 Dose: 1,000 mg Levothyroxine Sodium (Synthroid) 0.05 mg GT DAILY [facility] Stop: 12/19/17 08:59 Last Admin: 10/21/17 10:51 Dose: 0.05 mg Magnesium Hydroxide (Milk Of Magnesia) 30 ml GT HS PRN PRN Reason: Constipation Stop: 12/18/17 22:19 Miscellaneous (Darbepoetin Maksim In Polysorbat [Aranesp]) 25 mcg SUBQ QWED [facility] Stop: 12/18/17 22:29 Ondansetron HCl (Zofran Odt) 4 mg PO Q6H PRN PRN Reason: Nausea / Vomiting Stop: 12/18/17 22:19 Pantoprazole Sodium (Protonix) 40 mg GT DAILY [facility] Stop: 12/19/17 08:59 Last Admin: 10/21/17 10:51 Dose: 40 mg Sodium Phosphate (Fleet Enema) 135 ml RC Q2D PRN PRN Reason: Constipation Stop: 12/18/17 22:19 Valproate Sodium (Depakene) 500 mg GT Q6HR [facility] Stop: 12/18/17 00:00 Last Admin: 10/21/17 13:33 Dose: 500 mg Zinc Sulfate (Zinc Sulfate) 220 mg GT DAILY [facility] Stop: 12/19/17 08:59 Last Admin: 10/21/17 10:51 Dose: 220 mg Lab - Result Diagrams 10/21/17 06:10 10/21/17 06:10 Na up to 150 BUN came down to 91 but Cr stable @ 1.7 switch to 1/2 NS f/u electrolytes Nutritional Asmnt/Malnutr-PDOC - Dietary Evaluation Malnutrition Findings (Please click <Entered> for more info): Nutritional Asmnt/Malnutrition Start: 10/20/17 13: 26 Text: Status: Complete Freq: Protocol: Document 10/20/17 13:26 LCHENG (Rec: 10/20/17 13:33 LCHENG [email or web address]) Nutritional Asmnt/Malnutrition Patient General Information Nutritional Screening High Risk Consult Diagnosis hypernatremia, dehydration Pertinent Medical Hx/Surgical Hx HTN, DM, asthma/COPD, DVT/PE, dyslipidemia, trach Subjective Information Consult received for high glucose. Pt seen resting in bed at time of visit. Verified TF running at 70ml at this time. So far pt tolerated well per nurse. Current Diet Order/ Nutrition Support glucerna 1.2 70ml x 20hr Pertinent Medications vit C, colace, novolog, levemir, synthroid, protonix, nacl 0.45%, zinc Pertinent Labs 10/20 Na 147, K 4.6, Cl 114, BUN 106 (trending down), Cr 1. 7 (trending down), glucose 408 , POC 234-393 10/19 Na 151, K 4.4, Cl 114, BUN 120, Cr 1.9, glucose 337, A1c 7.7, POC 235-248 Nutritional Hx/Data Height 1.68 m Height (Calculated Centimeters) 167.6 Current Weight (lbs) 76.204 kg Weight (Calculated Kilograms) 76.2 Weight (Calculated Grams) 30977.5 [place] Body Weight 142 Body Mass Index (BMI) 27.1 Weight Status Overweight GI Symptoms GI Symptoms None Last BM not indicated Difficult in: None Skin Integrity/Comment: abrasion to left shoulder, lower scrotum, sacrum, right heel Estimated Nutritional Goals Calories/Kcals/Kg 23-27 based on IBW 62kg Kcals Calculated 7649-9784 Protein g/k monitor renal labs Protein Calculated 62 Fluid: ml per MD Nutritional Problem 1. Problem Problem altered nutrition relatedl abs Etiology renal dysfunction Signs/Symptoms: BUN 106, Cr 1.7 Malnutrition Alert Is there a minimum of two criteria No selected? Query Text:Check all the applicable criteria. A minimum of two criteria are recommended for diagnosis of either severe or non-severe malnutrition. Malnutrition Related to Morbid Obesity Malnutrition related to morbid obesity No Intervention/Recommendation Comments 1. Continue with current TF regimen. It provides 1680kcal, 84g protein, 1145ml free water, meeting 100% of nutritional needs. If BUN/Cr continue high, will recommend decrease TF rate or switch to [place] for lower protein needs. 2. Monitor TF rate, tolerance, wt, skin integrity and labs 3. F/U as high risk in 2-3 days, 10/22-10/23 Expected Outcomes/Goals Expected Outcomes/Goals 1. Pt to meet at least 75% of nutritional needs via nutrition support with tolerance 2. Wt stability, skin to remain intact, labs to approach WNL.
[2017-10-21] MEDS: Acetaminophen 500 MG TAB GT PRN (22:28)
[2017-10-21] MEDS: Insulin Detemir 100 units/mL 10mL Vial SUBQ SCH (22:36)
[2017-10-22] MEDS: Sodium Chloride 0.45% 1,000 ML IV SCH ×2 (06:08→17:17)
[2017-10-22 07:34] LABS: ANION GAP 9.2 (7.0-16.0); BUN - UREA NITROGEN 79 mg/dL (7-25); CALCIUM SERUM 8.4 mg/dL (8.6-10.3); CARBON DIOXIDE 26.2 mEq/L (21.0-31.0); CHLORIDE 115 mEq/L (98-107); CREATININE - SERUM 1.7 mg/dL (0.7-1.3); GLUCOSE 161 mg/dL (70-105); POTASSIUM SERUM 4.4 mEq/L (3.5-5.1); SODIUM SERUM 146 mEq/L (136-145)
[2017-10-22] MEDS: Levothyroxine 0.05 Mg Tab GT SCH (11:05)
[2017-10-22] MEDS: Multivitamin w/ Minerals Tab GT SCH (11:10)
[2017-10-22] MEDS: Pantoprazole 40 mg/Packet GT SCH (11:10)
[2017-10-22] MEDS: Levetiracetam 500 mg/5mL 5mL UDSyr *for ORAL USE ONLY GT SCH ×2 (13:57→23:19)
--- NOTE | 2017-10-22 14:37 | General Progress Note ---
Subjective - Review of Systems Service Date: 10/22/17 Subjective: sleeping, comfortable Objective - Results Result Diagrams: 10/21/17 06:10 10/22/17 06:30 Recent Labs: Laboratory Last Values WBC 7.0 Th/cmm (4.8-10.8) 10/21/17 06:10 RBC 3.37 Mil/cmm (3.80-5.80) L 10/21/17 06:10 Hgb 11.6 gm/dL (12-16) L 10/21/17 06:10 Hct 35.5 % (41.0-60) L 10/21/17 06:10 MCV 105.4 fl (80-99) H 10/21/17 06:10 MCH 34.6 pg (27.0-31.0) H 10/21/17 06:10 MCHC Differential 32.8 pg (28.0-36.0) 10/21/17 06:10 RDW 22.5 % (11.5-20.0) H 10/21/17 06:10 Plt Count 116 Th/cmm (150-400) L 10/21/17 06:10 MPV 10.0 fl 10/21/17 06:10 Neutrophils % 46.4 % (40.0-80.0) 10/21/17 06:10 Lymphocytes % 40.1 % (20.0-50.0) 10/21/17 06:10 Monocytes % 6.8 % (2.0-10.0) 10/21/17 06:10 Eosinophils % 6.5 % (0.0-5.0) H 10/21/17 06:10 Basophils % 0.2 % (0.0-2.0) 10/21/17 06:10 PT 10.3 SECONDS (9.5-11.5) 10/19/17 11:45 INR 0.99 (0.5-1.4) 10/19/17 11:45 PTT (Actin FS) 21.4 SECONDS (26.0-38.0) L 10/19/17 11:45 Sodium 146 mEq/L (136-145) H 10/22/17 06:30 Potassium 4.4 mEq/L (3.5-5.1) 10/22/17 06:30 Chloride 115 mEq/L (98-107) H 10/22/17 06:30 Carbon Dioxide 26.2 mEq/L (21.0-31.0) 10/22/17 06:30 Anion Gap 9.2 (7.0-16.0) 10/22/17 06:30 BUN 79 mg/dL (7-25) H 10/22/17 06:30 Creatinine 1.7 mg/dL (0.7-1.3) H 10/22/17 06:30 Est GFR ( Amer) TNP 10/22/17 06:30 Est GFR (Non-Af Amer) TNP 10/22/17 06:30 BUN/Creatinine Ratio 46.5 10/22/17 06:30 Glucose 161 mg/dL (70-105) H 10/22/17 06:30 POC Glucose 125 MG/DL (70 - 105) H 10/22/17 12:29 Hemoglobin A1c % 7.7 % (4.0-6.0) H 10/19/17 11:45 Whole Bld Lactic Acid 1.36 mmol/L (0.60-1.99) 10/19/17 13:30 Uric Acid 5.5 mg/dL (4.4-7.6) 10/21/17 06:10 Calcium 8.4 mg/dL (8.6-10.3) L 10/22/17 06:30 Phosphorus 3.8 mg/dL (2.5-5.0) 10/21/17 06:10 Magnesium 2.9 mg/dL (1.9-2.7) H 10/21/17 06:10 Total Bilirubin 0.3 mg/dL (0.3-1.0) 10/20/17 06:27 AST 23 U/L (13-39) 10/20/17 06:27 ALT 10 U/L (7-52) 10/20/17 06:27 Alkaline Phosphatase 66 U/L (34-104) 10/20/17 06:27 Creatine Kinase 25 U/L (30-223) L 10/19/17 11:45 Troponin I 0.03 ng/mL (0.01-0.05) 10/19/17 11:45 Total Protein 7.2 gm/dL (6.0-8.3) 10/20/17 06:27 Albumin 2.7 gm/dL (4.2-5.5) L 10/20/17 06:27 Globulin 4.5 gm/dL 10/20/17 06:27 Albumin/Globulin Ratio 0.6 (1.0-1.8) L 10/20/17 06:27 Triglycerides 536 mg/dL (<150) H 10/20/17 06:27 Cholesterol 110 mg/dL (<200) 10/20/17 06:27 LDL Cholesterol Direct 54 mg/dL (75-193) L 10/20/17 06:27 HDL Cholesterol 25 mg/dL (23-92) 10/20/17 06:27 Amylase 27 U/L (29-103) L 10/19/17 11:45 Lipase 48 U/L (11-82) 10/19/17 11:45 TSH 5.73 uIU/ml (0.34-5.60) H 10/21/17 06:10 - Physical Exam Vitals and I&O: Vital Signs Temp 97.1 F 10/22/17 08:52 Pulse 87 10/22/17 08:52 Resp 18 10/22/17 08:52 BP 115/64 10/22/17 08:52 Pulse Ox 96 10/22/17 08:52 Intake & Output 10/21/17 10/22/17 10/22/17 18:59 06:59 18:59 Intake Total 1711.25 Output Total 2 Balance 1709.25 Weight (lbs) 76.209 kg Intake: Intake, IV Amount 511.25 Sodium Chloride 0.45% 1, 511.25 000 ml @ 75 mls/hr IV . [id number] [facility] Rx#:[id number] Tube Feeding 700 Other 500 Output: Stool 2 Other: # Voids 4 # Bowel Movements 2 Stool Characteristics Soft Formed Weight Source Bedscale Active Medications: Current Medications Acetaminophen (Tylenol Extra Strength) 500 mg GT Q4H PRN PRN Reason: Pain (Moderate) Stop: 12/18/17 22:19 Last Admin: 10/21/17 22:28 Dose: 500 mg Allopurinol (Zyloprim) 300 mg GT DAILY [facility] Stop: 12/19/17 08:59 Last Admin: 10/22/17 11:12 Dose: 300 mg Ascorbic Acid (Vitamin C) 500 mg GT DAILY [facility] Stop: 12/19/17 08:59 Last Admin: 10/22/17 11:00 Dose: 500 mg Aspirin (Ecotrin) 81 mg PO DAILY [facility] Stop: 12/19/17 08:59 Last Admin: 10/22/17 11:03 Dose: 81 mg Bisacodyl (Dulcolax 10 Mg Supp) 10 mg RC DAILY PRN PRN Reason: Constipation Stop: 12/18/17 22:19 Docusate Sodium (Colace) 100 mg PO DAILY [facility] Stop: 12/19/17 08:59 Last Admin: 10/22/17 11:04 Dose: 100 mg Fluconazole (Diflucan) 100 mg PO DAILY [facility] Stop: 12/19/17 13:59 Last Admin: 10/22/17 11:02 Dose: 100 mg Sodium Chloride (Nacl 0.45%) 1,000 mls @ 75 mls/hr IV .[id number] [facility] Stop: 12/20/17 15:14 Last Admin: 10/22/17 06:08 Dose: 75 mls/hr Insulin Aspart (Novolog Insulin Sliding Scale) 0 units SUBQ ACHS [facility]; Protocol Stop: 12/19/17 07:29 Last Admin: 10/21/17 22:35 Dose: 7 units Insulin Detemir (Levemir Insulin) 10 units SUBQ [facility]; Protocol Stop: 12/19/17 20:59 Last Admin: 10/21/17 22:36 Dose: 10 units Levetiracetam (Keppra) 1,000 mg GT Q12H [facility] Stop: 12/19/17 00:00 Last Admin: 10/22/17 13:57 Dose: 1,000 mg Levothyroxine Sodium (Synthroid) 0.05 mg GT DAILY [facility] Stop: 12/19/17 08:59 Last Admin: 10/22/17 11:05 Dose: 0.05 mg Magnesium Hydroxide (Milk Of Magnesia) 30 ml GT HS PRN PRN Reason: Constipation Stop: 12/18/17 22:19 Mupirocin (Bactroban Oint) 1 appl NS BID [facility] Stop: 10/27/17 09:01 Ondansetron HCl (Zofran Odt) 4 mg PO Q6H PRN PRN Reason: Nausea / Vomiting Stop: 12/18/17 22:19 Pantoprazole Sodium (Protonix) 40 mg GT DAILY [facility] Stop: 12/19/17 08:59 Last Admin: 10/22/17 11:10 Dose: 40 mg Sodium Phosphate (Fleet Enema) 135 ml RC Q2D PRN PRN Reason: Constipation Stop: 12/18/17 22:19 Valproate Sodium (Depakene) 500 mg GT Q6HR [facility] Stop: 12/18/17 00:00 Last Admin: 10/22/17 13:57 Dose: 500 mg Zinc Sulfate (Zinc Sulfate) 220 mg GT DAILY [facility] Stop: 12/19/17 08:59 Last Admin: 10/22/17 11:10 Dose: 220 mg General: No acute distress HEENT: Atraumatic, Mucous membr. moist/pink Neck: Supple, +2 carotid pulse wo bruit Cardiovascular: Regular rate, Normal S1, Normal S2 Lungs: Other (scattered rhonchi) Abdomen: Bowel sounds, Soft Extremities: no Edema Neurological: Sensation intact Skin: no Rash Psych/Mental Status: Mood NL - Procedures Procedures: Procedures Procedure Code Date CHANGE FEEDING DEVICE IN UP INTEST TRACT, SPACER TYPE BAR AND SEGMENT APPROACH [id number] 07/21/17 CHANGE GASTROSTOMY TUBE 19729 07/21/17 EXCISION OF DUODENUM, ENDO, DIAGN [id number] 03/25/16 EXCISION OF ESOPHAGOGASTRIC JUNCTION, ENDO, DIAGN [id number] 09/13/17 EXCISION OF SIGMOID COLON, ENDO, DIAGN [id number] 09/13/17 EXCISION OF STOMACH, ENDO, DIAGN [id number] 09/13/17 EXCISION OF STOMACH, PYLORUS, ENDO, DIAGN [id number] 03/25/16 EXCISION OF TRANSVERSE COLON, ENDO, DIAGN [id number] 03/25/16 EXTIRPATION OF MATTER FROM COMMON BILE DUCT, ENDO [id number] 01/28/16 FLUOROSCOPY OF BILE DUCTS USING LOW OSMOLAR CONTRAST [id number] 01/28/16 REMOVAL OF INTRALUMINAL DEVICE FROM HEPATOBILIARY DUCT, ENDO [id number] 01/28/16 TRANSFUSE NONAUT RED BLOOD CELLS IN PERIPH VEIN, PERC [id number] 09/13/17 Assessment/Plan - Assessment Assessment: BAN on CKD Ess Htn Severe Malnutrition T2DM w/ CKD CAD S/P CVA COPD Hypernatremia - Plan Plan: Lab - Result Diagrams 10/21/17 06:10 10/21/17 06:10 Current Medications Acetaminophen (Tylenol Extra Strength) 500 mg GT Q4H PRN PRN Reason: Pain (Moderate) Stop: 12/18/17 22:19 Allopurinol (Zyloprim) 300 mg GT DAILY [facility] Stop: 12/19/17 08:59 Last Admin: 10/21/17 10:52 Dose: 300 mg Ascorbic Acid (Vitamin C) 500 mg GT DAILY [facility] Stop: 12/19/17 08:59 Last Admin: 10/21/17 10:52 Dose: 500 mg Aspirin (Ecotrin) 81 mg PO DAILY [facility] Stop: 12/19/17 08:59 Last Admin: 10/21/17 10:51 Dose: 81 mg Bisacodyl (Dulcolax 10 Mg Supp) 10 mg RC DAILY PRN PRN Reason: Constipation Stop: 12/18/17 22:19 Docusate Sodium (Colace) 100 mg PO DAILY [facility] Stop: 12/19/17 08:59 Last Admin: 10/21/17 10:52 Dose: 100 mg Fluconazole (Diflucan) 100 mg PO DAILY [facility] Stop: 12/19/17 13:59 Last Admin: 10/21/17 10:52 Dose: 100 mg Sodium Chloride (Nacl 0.45%) 1,000 mls @ 100 mls/hr IV .Q10H [facility] Stop: 12/19/17 13:44 Last Admin: 10/21/17 05:51 Dose: 100 mls/hr Insulin Aspart (Novolog Insulin Sliding Scale) 0 units SUBQ ACHS [facility]; Protocol Stop: 12/19/17 07:29 Last Admin: 10/21/17 12:23 Dose: Not Given Insulin Detemir (Levemir Insulin) 10 units SUBQ HS [facility]; Protocol Stop: 12/19/17 20:59 Last Admin: 10/20/17 22:00 Dose: 10 units Levetiracetam (Keppra) 1,000 mg GT Q12H [facility] Stop: 12/19/17 00:00 Last Admin: 10/21/17 12:35 Dose: 1,000 mg Levothyroxine Sodium (Synthroid) 0.05 mg GT DAILY [facility] Stop: 12/19/17 08:59 Last Admin: 10/21/17 10:51 Dose: 0.05 mg Magnesium Hydroxide (Milk Of Magnesia) 30 ml GT HS PRN PRN Reason: Constipation Stop: 12/18/17 22:19 Miscellaneous (Darbepoetin [place] In [place] [Aranesp]) 25 mcg SUBQ QWED [facility] Stop: 12/18/17 22:29 Ondansetron HCl (Zofran Odt) 4 mg PO Q6H PRN PRN Reason: Nausea / Vomiting Stop: 12/18/17 22:19 Pantoprazole Sodium (Protonix) 40 mg GT DAILY [facility] Stop: 12/19/17 08:59 Last Admin: 10/21/17 10:51 Dose: 40 mg Sodium Phosphate (Fleet Enema) 135 ml RC Q2D PRN PRN Reason: Constipation Stop: 12/18/17 22:19 Valproate Sodium (Depakene) 500 mg GT Q6HR [facility] Stop: 12/18/17 00:00 Last Admin: 10/21/17 13:33 Dose: 500 mg Zinc Sulfate (Zinc Sulfate) 220 mg GT DAILY [facility] Stop: 12/19/17 08:59 Last Admin: 10/21/17 10:51 Dose: 220 mg Lab - Result Diagrams 10/21/17 06:10 10/22/17 06:30 Na down to 146 BUN came down to 79 but Cr stable @ 1.7 switch to 05/11 NS f/u electrolytes Nutritional Asmnt/Malnutr-PDOC - Dietary Evaluation Malnutrition Findings (Please click <Entered> for more info): Nutritional Asmnt/Malnutrition Start: 10/20/17 13: 26 Text: Status: Complete Freq: Protocol: Document 10/20/17 13:26 LCHENG (Rec: 10/20/17 13:33 LCHENG [email or web address]) Nutritional Asmnt/Malnutrition Patient General Information Nutritional Screening High Risk Consult Diagnosis hypernatremia, dehydration Pertinent Medical Hx/Surgical Hx HTN, DM, asthma/COPD, DVT/PE, dyslipidemia, trach Subjective Information Consult received for high glucose. Pt seen resting in bed at time of visit. Verified TF running at 70ml at this time. So far pt tolerated well per nurse. Current Diet Order/ Nutrition Support glucerna 1.2 70ml x 20hr Pertinent Medications vit C, colace, novolog, levemir, synthroid, protonix, nacl 0.45%, zinc Pertinent Labs 10/20 Na 147, K 4.6, Cl 114, BUN 106 (trending down), Cr 1. 7 (trending down), glucose 408 , POC 234-393 10/19 Na 151, K 4.4, Cl 114, BUN 120, Cr 1.9, glucose 337, A1c 7.7, POC 235-248 Nutritional Hx/Data Height 1.68 m Height (Calculated Centimeters) 167.6 Current Weight (lbs) 76.204 kg Weight (Calculated Kilograms) 76.2 Weight (Calculated Grams) 31145.5 [place] Body Weight 142 Body Mass Index (BMI) 27.1 Weight Status Overweight GI Symptoms GI Symptoms None Last BM not indicated Difficult in: None Skin Integrity/Comment: abrasion to left shoulder, lower scrotum, sacrum, right heel Estimated Nutritional Goals Calories/Kcals/Kg 23-27 based on IBW 62kg Kcals Calculated 9738-0724 Protein g/k monitor renal labs Protein Calculated 62 Fluid: ml per MD Nutritional Problem 1. Problem Problem altered nutrition relatedl abs Etiology renal dysfunction Signs/Symptoms: BUN 106, Cr 1.7 Malnutrition Alert Is there a minimum of two criteria No selected? Query Text:Check all the applicable criteria. A minimum of two criteria are recommended for diagnosis of either severe or non-severe malnutrition. Malnutrition Related to Morbid Obesity Malnutrition related to morbid obesity No Intervention/Recommendation Comments 1. Continue with current TF regimen. It provides 1680kcal, 84g protein, 1145ml free water, meeting 100% of nutritional needs. If BUN/Cr continue high, will recommend decrease TF rate or switch to [place] for lower protein needs. 2. Monitor TF rate, tolerance, wt, skin integrity and labs 3. F/U as high risk in 2-3 days, 10/22-10/23 Expected Outcomes/Goals Expected Outcomes/Goals 1. Pt to meet at least 75% of nutritional needs via nutrition support with tolerance 2. Wt stability, skin to remain intact, labs to approach WNL.
[2017-10-22] MEDS: INSULIN ASPART SLIDING SCALE 100 UNITS/ML UNIT SUBQ SCH ×4 (16:55→21:08)
[2017-10-22] MEDS: Acetaminophen 500 MG TAB GT PRN (17:35)
[2017-10-22] MEDS: Insulin Detemir 100 units/mL 10mL Vial SUBQ SCH (21:08)
[2017-10-23 07:25] LABS: ANION GAP 11.4 (7.0-16.0); BUN - UREA NITROGEN 63 mg/dL (7-25); CALCIUM SERUM 8.6 mg/dL (8.6-10.3); CARBON DIOXIDE 20.9 mEq/L (21.0-31.0); CHLORIDE 116 mEq/L (98-107); CREATININE - SERUM 1.5 mg/dL (0.7-1.3); GLUCOSE 105 mg/dL (70-105); POTASSIUM SERUM 4.3 mEq/L (3.5-5.1); SODIUM SERUM 144 mEq/L (136-145)
[2017-10-23] MEDS: INSULIN ASPART SLIDING SCALE 100 UNITS/ML UNIT SUBQ SCH ×4 (07:47→22:12)
[2017-10-23] MEDS: Pantoprazole 40 mg/Packet GT SCH (09:59)
[2017-10-23] MEDS: Multivitamin w/ Minerals Tab GT SCH (09:59)
[2017-10-23] MEDS: Levothyroxine 0.05 Mg Tab GT SCH (09:59)
[2017-10-23] MEDS: Levetiracetam 500 mg/5mL 5mL UDSyr *for ORAL USE ONLY GT SCH ×2 (12:29→23:33)
--- NOTE | 2017-10-23 13:59 | General Progress Note ---
Subjective - Review of Systems Service Date: 10/23/17 Subjective: sleeping, comfortable Objective - Results Result Diagrams: 10/21/17 06:10 10/23/17 06:35 Recent Labs: Laboratory Last Values WBC 7.0 Th/cmm (4.8-10.8) 10/21/17 06:10 RBC 3.37 Mil/cmm (3.80-5.80) L 10/21/17 06:10 Hgb 11.6 gm/dL (12-16) L 10/21/17 06:10 Hct 35.5 % (41.0-60) L 10/21/17 06:10 MCV 105.4 fl (80-99) H 10/21/17 06:10 MCH 34.6 pg (27.0-31.0) H 10/21/17 06:10 MCHC Differential 32.8 pg (28.0-36.0) 10/21/17 06:10 RDW 22.5 % (11.5-20.0) H 10/21/17 06:10 Plt Count 116 Th/cmm (150-400) L 10/21/17 06:10 MPV 10.0 fl 10/21/17 06:10 Neutrophils % 46.4 % (40.0-80.0) 10/21/17 06:10 Lymphocytes % 40.1 % (20.0-50.0) 10/21/17 06:10 Monocytes % 6.8 % (2.0-10.0) 10/21/17 06:10 Eosinophils % 6.5 % (0.0-5.0) H 10/21/17 06:10 Basophils % 0.2 % (0.0-2.0) 10/21/17 06:10 PT 10.3 SECONDS (9.5-11.5) 10/19/17 11:45 INR 0.99 (0.5-1.4) 10/19/17 11:45 PTT (Actin FS) 21.4 SECONDS (26.0-38.0) L 10/19/17 11:45 Sodium 144 mEq/L (136-145) 10/23/17 06:35 Potassium 4.3 mEq/L (3.5-5.1) 10/23/17 06:35 Chloride 116 mEq/L (98-107) H 10/23/17 06:35 Carbon Dioxide 20.9 mEq/L (21.0-31.0) L 10/23/17 06:35 Anion Gap 11.4 (7.0-16.0) 10/23/17 06:35 BUN 63 mg/dL (7-25) H 10/23/17 06:35 Creatinine 1.5 mg/dL (0.7-1.3) H 10/23/17 06:35 Est GFR ( Amer) TNP 10/23/17 06:35 Est GFR (Non-Af Amer) TNP 10/23/17 06:35 BUN/Creatinine Ratio 42.0 10/23/17 06:35 Glucose 105 mg/dL (70-105) 10/23/17 06:35 POC Glucose 129 MG/DL (70 - 105) H 10/23/17 12:09 Hemoglobin A1c % 7.7 % (4.0-6.0) H 10/19/17 11:45 Whole Bld Lactic Acid 1.36 mmol/L (0.60-1.99) 10/19/17 13:30 Uric Acid 5.5 mg/dL (4.4-7.6) 10/21/17 06:10 Calcium 8.6 mg/dL (8.6-10.3) 10/23/17 06:35 Phosphorus 3.8 mg/dL (2.5-5.0) 10/21/17 06:10 Magnesium 2.9 mg/dL (1.9-2.7) H 10/21/17 06:10 Total Bilirubin 0.3 mg/dL (0.3-1.0) 10/20/17 06:27 AST 23 U/L (13-39) 10/20/17 06:27 ALT 10 U/L (7-52) 10/20/17 06:27 Alkaline Phosphatase 66 U/L (34-104) 10/20/17 06:27 Creatine Kinase 25 U/L (30-223) L 10/19/17 11:45 Troponin I 0.03 ng/mL (0.01-0.05) 10/19/17 11:45 Total Protein 7.2 gm/dL (6.0-8.3) 10/20/17 06:27 Albumin 2.7 gm/dL (4.2-5.5) L 10/20/17 06:27 Globulin 4.5 gm/dL 10/20/17 06:27 Albumin/Globulin Ratio 0.6 (1.0-1.8) L 10/20/17 06:27 Triglycerides 536 mg/dL (<150) H 10/20/17 06:27 Cholesterol 110 mg/dL (<200) 10/20/17 06:27 LDL Cholesterol Direct 54 mg/dL (75-193) L 10/20/17 06:27 HDL Cholesterol 25 mg/dL (23-92) 10/20/17 06:27 Amylase 27 U/L (29-103) L 10/19/17 11:45 Lipase 48 U/L (11-82) 10/19/17 11:45 TSH 5.73 uIU/ml (0.34-5.60) H 10/21/17 06:10 - Physical Exam Vitals and I&O: Vital Signs Temp 98.3 F 10/23/17 04:00 Pulse 85 10/23/17 07:47 Resp 20 10/23/17 08:00 BP 115/68 10/23/17 04:00 Pulse Ox 96 10/23/17 07:47 Intake & Output 10/22/17 10/23/17 10/23/17 18:59 06:59 18:59 Intake Total 836.25 1300 Output Total 2 Balance 836.25 1298 Weight (lbs) 76.209 kg Intake: Intake, IV Amount 836.25 Sodium Chloride 0.45% 1, 836.25 000 ml @ 75 mls/hr IV . [id number] [facility] Rx#:[id number] Tube Feeding 700 Other 600 Output: Stool 2 Other: # Voids 4 # Bowel Movements 2 Stool Characteristics Brown Soft Soft Formed Formed Weight Source Bedscale Active Medications: Current Medications Acetaminophen (Tylenol Extra Strength) 500 mg GT Q4H PRN PRN Reason: Pain (Moderate) Stop: 12/18/17 22:19 Last Admin: 10/22/17 17:35 Dose: 500 mg Allopurinol (Zyloprim) 300 mg GT DAILY [facility] Stop: 12/19/17 08:59 Last Admin: 10/23/17 09:58 Dose: 300 mg Ascorbic Acid (Vitamin C) 500 mg GT DAILY [facility] Stop: 12/19/17 08:59 Last Admin: 10/23/17 09:58 Dose: 500 mg Aspirin (Ecotrin) 81 mg PO DAILY [facility] Stop: 12/19/17 08:59 Last Admin: 10/23/17 09:59 Dose: 81 mg Bisacodyl (Dulcolax 10 Mg Supp) 10 mg RC DAILY PRN PRN Reason: Constipation Stop: 12/18/17 22:19 Docusate Sodium (Colace) 100 mg PO DAILY [facility] Stop: 12/19/17 08:59 Last Admin: 10/23/17 09:59 Dose: 100 mg Fluconazole (Diflucan) 100 mg PO DAILY [facility] Stop: 12/19/17 13:59 Last Admin: 10/23/17 09:59 Dose: 100 mg Sodium Chloride (Nacl 0.45%) 1,000 mls @ 75 mls/hr IV .[id number] [facility] Stop: 12/20/17 15:14 Last Admin: 10/22/17 17:17 Dose: 75 mls/hr Insulin Aspart (Novolog Insulin Sliding Scale) 0 units SUBQ ACHS [facility]; Protocol Stop: 12/19/17 07:29 Last Admin: 10/23/17 12:19 Dose: Not Given Insulin Detemir (Levemir Insulin) 10 units SUBQ HS [facility]; Protocol Stop: 12/19/17 20:59 Last Admin: 10/22/17 21:08 Dose: 10 units Levetiracetam (Keppra) 1,000 mg GT Q12H [facility] Stop: 12/19/17 00:00 Last Admin: 10/23/17 12:29 Dose: 1,000 mg Levothyroxine Sodium (Synthroid) 0.05 mg GT DAILY [facility] Stop: 12/19/17 08:59 Last Admin: 10/23/17 09:59 Dose: 0.05 mg Magnesium Hydroxide (Milk Of Magnesia) 30 ml GT HS PRN PRN Reason: Constipation Stop: 12/18/17 22:19 Mupirocin (Bactroban Oint) 1 appl NS BID [facility] Stop: 10/27/17 09:01 Last Admin: 10/23/17 09:59 Dose: 1 appl Ondansetron HCl (Zofran Odt) 4 mg PO Q6H PRN PRN Reason: Nausea / Vomiting Stop: 08/11/18 22:19 Pantoprazole Sodium (Protonix) 40 mg GT DAILY [facility] Stop: 12/19/17 08:59 Last Admin: 10/23/17 09:59 Dose: 40 mg Sodium Phosphate (Fleet Enema) 135 ml RC Q2D PRN PRN Reason: Constipation Stop: 12/18/17 22:19 Valproate Sodium (Depakene) 500 mg GT Q6HR [facility] Stop: 12/18/17 00:00 Last Admin: 10/23/17 12:30 Dose: 500 mg Zinc Sulfate (Zinc Sulfate) 220 mg GT DAILY [facility] Stop: 12/19/17 08:59 Last Admin: 10/23/17 09:59 Dose: 220 mg General: No acute distress HEENT: Atraumatic, Mucous membr. moist/pink Neck: Supple, +2 carotid pulse wo bruit Cardiovascular: Regular rate, Normal S1, Normal S2 Lungs: Other (scattered rhonchi) Abdomen: Bowel sounds, Soft Extremities: no Edema Neurological: Sensation intact Skin: no Rash Psych/Mental Status: Mood NL - Procedures Procedures: Procedures Procedure Code Date CHANGE FEEDING DEVICE IN UP INTEST TRACT, VEST FINISHER APPROACH [id number] 07/21/17 CHANGE GASTROSTOMY TUBE 96821 07/21/17 EXCISION OF DUODENUM, ENDO, DIAGN [id number] 03/25/16 EXCISION OF ESOPHAGOGASTRIC JUNCTION, ENDO, DIAGN [id number] 09/13/17 EXCISION OF SIGMOID COLON, ENDO, DIAGN [id number] 09/13/17 EXCISION OF STOMACH, ENDO, DIAGN [id number] 09/13/17 EXCISION OF STOMACH, PYLORUS, ENDO, DIAGN [id number] 03/25/16 EXCISION OF TRANSVERSE COLON, ENDO, DIAGN [id number] 03/25/16 EXTIRPATION OF MATTER FROM COMMON BILE DUCT, ENDO [id number] 01/28/16 FLUOROSCOPY OF BILE DUCTS USING LOW OSMOLAR CONTRAST [id number] 01/28/16 REMOVAL OF INTRALUMINAL DEVICE FROM HEPATOBILIARY DUCT, ENDO [id number] 01/28/16 TRANSFUSE NONAUT RED BLOOD CELLS IN PERIPH VEIN, PERC 93950G3 09/13/17 Assessment/Plan - Assessment Assessment: BAN on CKD Ess Htn Severe Malnutrition T2DM w/ CKD CAD S/P CVA COPD Hypernatremia - Plan Plan: Lab - Result Diagrams 10/21/17 06:10 10/21/17 06:10 Current Medications Acetaminophen (Tylenol Extra Strength) 500 mg GT Q4H PRN PRN Reason: Pain (Moderate) Stop: 12/18/17 22:19 Allopurinol (Zyloprim) 300 mg GT DAILY [facility] Stop: 12/19/17 08:59 Last Admin: 10/21/17 10:52 Dose: 300 mg Ascorbic Acid (Vitamin C) 500 mg GT DAILY [facility] Stop: 12/19/17 08:59 Last Admin: 10/21/17 10:52 Dose: 500 mg Aspirin (Ecotrin) 81 mg PO DAILY [facility] Stop: 12/19/17 08:59 Last Admin: 10/21/17 10:51 Dose: 81 mg Bisacodyl (Dulcolax 10 Mg Supp) 10 mg RC DAILY PRN PRN Reason: Constipation Stop: 12/18/17 22:19 Docusate Sodium (Colace) 100 mg PO DAILY [facility] Stop: 12/19/17 08:59 Last Admin: 10/21/17 10:52 Dose: 100 mg Fluconazole (Diflucan) 100 mg PO DAILY [facility] Stop: 12/19/17 13:59 Last Admin: 10/21/17 10:52 Dose: 100 mg Sodium Chloride (Nacl 0.45%) 1,000 mls @ 100 mls/hr IV .Q10H [facility] Stop: 12/19/17 13:44 Last Admin: 10/21/17 05:51 Dose: 100 mls/hr Insulin Aspart (Novolog Insulin Sliding Scale) 0 units SUBQ ACHS [facility]; Protocol Stop: 12/19/17 07:29 Last Admin: 10/21/17 12:23 Dose: Not Given Insulin Detemir (Levemir Insulin) 10 units SUBQ HS [facility]; Protocol Stop: 12/19/17 20:59 Last Admin: 10/20/17 22:00 Dose: 10 units Levetiracetam (Keppra) 1,000 mg GT Q12H [facility] Stop: 12/19/17 00:00 Last Admin: 10/21/17 12:35 Dose: 1,000 mg Levothyroxine Sodium (Synthroid) 0.05 mg GT DAILY [facility] Stop: 12/19/17 08:59 Last Admin: 10/21/17 10:51 Dose: 0.05 mg Magnesium Hydroxide (Milk Of Magnesia) 30 ml GT HS PRN PRN Reason: Constipation Stop: 12/18/17 22:19 Miscellaneous (Darbepoetin [place] In [place] [Aranesp]) 25 mcg SUBQ QWED [facility] Stop: 12/18/17 22:29 Ondansetron HCl (Zofran Odt) 4 mg PO Q6H PRN PRN Reason: Nausea / Vomiting Stop: 12/18/17 22:19 Pantoprazole Sodium (Protonix) 40 mg GT DAILY [facility] Stop: 12/19/17 08:59 Last Admin: 10/21/17 10:51 Dose: 40 mg Sodium Phosphate (Fleet Enema) 135 ml RC Q2D PRN PRN Reason: Constipation Stop: 12/18/17 22:19 Valproate Sodium (Depakene) 500 mg GT Q6HR [facility] Stop: 12/18/17 00:00 Last Admin: 10/21/17 13:33 Dose: 500 mg Zinc Sulfate (Zinc Sulfate) 220 mg GT DAILY [facility] Stop: 12/19/17 08:59 Last Admin: 10/21/17 10:51 Dose: 220 mg Lab - Result Diagrams 10/21/17 06:10 10/23/17 06:35 Na down to 144 kidney fnc better @ 63/1.5 switch to 05/11 NS f/u electrolytes Nutritional Asmnt/Malnutr-PDOC - Dietary Evaluation Malnutrition Findings (Please click <Entered> for more info): Nutritional Asmnt/Malnutrition Start: 10/20/17 13: 26 Text: Status: Complete Freq: Protocol: Document 10/20/17 13:26 LCRANDYG (Rec: 10/20/17 13:33 [place] [id number]) Nutritional Asmnt/Malnutrition Patient General Information Nutritional Screening High Risk Consult Diagnosis hypernatremia, dehydration Pertinent Medical Hx/Surgical Hx HTN, DM, asthma/COPD, DVT/PE, dyslipidemia, trach Subjective Information Consult received for high glucose. Pt seen resting in bed at time of visit. Verified TF running at 70ml at this time. So far pt tolerated well per nurse. Current Diet Order/ Nutrition Support glucerna 1.2 70ml x 20hr Pertinent Medications vit C, colace, novolog, levemir, synthroid, protonix, nacl 0.45%, zinc Pertinent Labs 10/20 Na 147, K 4.6, Cl 114, BUN 106 (trending down), Cr 1. 7 (trending down), glucose 408 , POC 234-393 10/19 Na 151, K 4.4, Cl 114, BUN 120, Cr 1.9, glucose 337, A1c 7.7, POC 235-248 Nutritional Hx/Data Height 1.68 m Height (Calculated Centimeters) 167.6 Current Weight (lbs) 76.204 kg Weight (Calculated Kilograms) 76.2 Weight (Calculated Grams) 32150.5 [employer] Body Weight 142 Body Mass Index (BMI) 27.1 Weight Status Overweight GI Symptoms GI Symptoms None Last BM not indicated Difficult in: None Skin Integrity/Comment: abrasion to left shoulder, lower scrotum, sacrum, right heel Estimated Nutritional Goals Calories/Kcals/Kg 23-27 based on IBW 62kg Kcals Calculated 0947-9745 Protein g/k monitor renal labs Protein Calculated 62 Fluid: ml per MD Nutritional Problem 1. Problem Problem altered nutrition relatedl abs Etiology renal dysfunction Signs/Symptoms: BUN 106, Cr 1.7 Malnutrition Alert Is there a minimum of two criteria No selected? Query Text:Check all the applicable criteria. A minimum of two criteria are recommended for diagnosis of either severe or non-severe malnutrition. Malnutrition Related to Morbid Obesity Malnutrition related to morbid obesity No Intervention/Recommendation Comments 1. Continue with current TF regimen. It provides 1680kcal, 84g protein, 1145ml free water, meeting 100% of nutritional needs. If BUN/Cr continue high, will recommend decrease TF rate or switch to [place] for lower protein needs. 2. Monitor TF rate, tolerance, wt, skin integrity and labs 3. F/U as high risk in 2-3 days, 10/22-10/23 Expected Outcomes/Goals Expected Outcomes/Goals 1. Pt to meet at least 75% of nutritional needs via nutrition support with tolerance 2. Wt stability, skin to remain intact, labs to approach WNL.
--- NOTE | 2017-10-23 19:01 | Progress Notes ---
DATE: 10/23/2017 SUBJECTIVE: The patient was seen in his room, lying in the bed. The patient is asleep but easily arousable. The patient appears to be calm, in no acute distress. OBJECTIVE: VITAL SIGNS: Temperature 98.3, heart rate of 85, blood pressure 159/68, respirations 17, 96% on room air. HEENT: Head is atraumatic and normocephalic. Eyes: Bilateral conjunctivae are clear. Bilateral pupils are equally round, reactive. NECK: Supple. No JVD. CARDIOVASCULAR: S1 and S2, without murmur. PULMONARY: Decreased breath sounds. GASTROINTESTINAL: Soft and nontender without guarding. Positive bowel sounds. The patient has a gastrostomy tube in place. MUSCULOSKELETAL: No clubbing. No cyanosis noted. Positive contracted extremities. ASSESSMENT: 1. Acute kidney injury. 2. Hypertension. 3. Dysphagia. 4. Chronic kidney disease. 5. Coronary artery disease. 6. History of cerebrovascular accident. PLAN: We will continue current treatment. We will follow up with the reciprocating drill operator to monitor the patient's electrolytes. We are going to have the patient for LTAC evaluation. Treatment plans were discussed with the patient besides to treatment plans were discussed with Dr. Mcconnell. JOB# [id number]
[2017-10-23] MEDS: Sodium Chloride 0.45% 1,000 ML IV SCH ×3 (20:10→23:33)
[2017-10-23] MEDS: Insulin Detemir 100 units/mL 10mL Vial SUBQ SCH (22:12)
[2017-10-24 06:10] LABS: ANION GAP 11.7 (7.0-16.0); BUN - UREA NITROGEN 58 mg/dL (7-25); CALCIUM SERUM 8.2 mg/dL (8.6-10.3); CARBON DIOXIDE 21.3 mEq/L (21.0-31.0); CHLORIDE 113 mEq/L (98-107); CREATININE - SERUM 1.5 mg/dL (0.7-1.3); SODIUM SERUM 141 mEq/L (136-145)
[2017-10-24 06:11] LABS: GLUCOSE 205 mg/dL (70-105)
[2017-10-24] MEDS: INSULIN ASPART SLIDING SCALE 100 UNITS/ML UNIT SUBQ SCH ×4 (06:50→20:22)
--- NOTE | 2017-10-24 07:03 | General Progress Note ---
Subjective - Review of Systems Events since last encounter: patient in no distress Objective - Results Result Diagrams: 10/21/17 06:10 10/24/17 05:25 Recent Labs: Laboratory Last Values WBC 7.0 Th/cmm (4.8-10.8) 10/21/17 06:10 RBC 3.37 Mil/cmm (3.80-5.80) L 10/21/17 06:10 Hgb 11.6 gm/dL (12-16) L 10/21/17 06:10 Hct 35.5 % (41.0-60) L 10/21/17 06:10 MCV 105.4 fl (80-99) H 10/21/17 06:10 MCH 34.6 pg (27.0-31.0) H 10/21/17 06:10 MCHC Differential 32.8 pg (28.0-36.0) 10/21/17 06:10 RDW 22.5 % (11.5-20.0) H 10/21/17 06:10 Plt Count 116 Th/cmm (150-400) L 10/21/17 06:10 MPV 10.0 fl 10/21/17 06:10 Neutrophils % 46.4 % (40.0-80.0) 10/21/17 06:10 Lymphocytes % 40.1 % (20.0-50.0) 10/21/17 06:10 Monocytes % 6.8 % (2.0-10.0) 10/21/17 06:10 Eosinophils % 6.5 % (0.0-5.0) H 10/21/17 06:10 Basophils % 0.2 % (0.0-2.0) 10/21/17 06:10 PT 10.3 SECONDS (9.5-11.5) 10/19/17 11:45 INR 0.99 (0.5-1.4) 10/19/17 11:45 PTT (Actin FS) 21.4 SECONDS (26.0-38.0) L 10/19/17 11:45 Sodium 141 mEq/L (136-145) 10/24/17 05:25 Potassium 5.0 mEq/L (3.5-5.1) 10/24/17 05:25 Chloride 113 mEq/L (98-107) H 10/24/17 05:25 Carbon Dioxide 21.3 mEq/L (21.0-31.0) 10/24/17 05:25 Anion Gap 11.7 (7.0-16.0) 10/24/17 05:25 BUN 58 mg/dL (7-25) H 10/24/17 05:25 Creatinine 1.5 mg/dL (0.7-1.3) H 10/24/17 05:25 Est GFR ( Amer) TNP 10/24/17 05:25 Est GFR (Non-Af Amer) TNP 10/24/17 05:25 BUN/Creatinine Ratio 38.7 10/24/17 05:25 Glucose 205 mg/dL (70-105) H D 10/24/17 05:25 POC Glucose 221 MG/DL (70 - 105) H 10/24/17 06:25 Hemoglobin A1c % 7.7 % (4.0-6.0) H 10/19/17 11:45 Whole Bld Lactic Acid 1.36 mmol/L (0.60-1.99) 10/19/17 13:30 Uric Acid 5.5 mg/dL (4.4-7.6) 10/21/17 06:10 Calcium 8.2 mg/dL (8.6-10.3) L 10/24/17 05:25 Phosphorus 3.8 mg/dL (2.5-5.0) 10/21/17 06:10 Magnesium 2.9 mg/dL (1.9-2.7) H 10/21/17 06:10 Total Bilirubin 0.3 mg/dL (0.3-1.0) 10/20/17 06:27 AST 23 U/L (13-39) 10/20/17 06:27 ALT 10 U/L (7-52) 10/20/17 06:27 Alkaline Phosphatase 66 U/L (34-104) 10/20/17 06:27 Creatine Kinase 25 U/L (30-223) L 10/19/17 11:45 Troponin I 0.03 ng/mL (0.01-0.05) 10/19/17 11:45 Total Protein 7.2 gm/dL (6.0-8.3) 10/20/17 06:27 Albumin 2.7 gm/dL (4.2-5.5) L 10/20/17 06:27 Globulin 4.5 gm/dL 10/20/17 06:27 Albumin/Globulin Ratio 0.6 (1.0-1.8) L 10/20/17 06:27 Triglycerides 536 mg/dL (<150) H 10/20/17 06:27 Cholesterol 110 mg/dL (<200) 10/20/17 06:27 LDL Cholesterol Direct 54 mg/dL (75-193) L 10/20/17 06:27 HDL Cholesterol 25 mg/dL (23-92) 10/20/17 06:27 Amylase 27 U/L (29-103) L 10/19/17 11:45 Lipase 48 U/L (11-82) 10/19/17 11:45 TSH 5.73 uIU/ml (0.34-5.60) H 10/21/17 06:10 - Physical Exam Vitals and I&O: Vital Signs Temp 98.3 F 10/24/17 04:00 Pulse 80 10/24/17 04:00 Resp 17 10/24/17 04:00 BP 133/56 10/24/17 04:00 Pulse Ox 98 10/24/17 04:00 Intake & Output 10/23/17 10/24/17 10/24/17 18:59 06:59 18:59 Intake Total 950 1023.75 Balance 950 1023.75 Weight (lbs) 76.204 kg 90.718 kg Intake: Intake, IV Amount 253.75 Sodium Chloride 0.45% 1, 253.75 000 ml @ 75 mls/hr IV . [id number] [facility] Rx#:[id number] Tube Feeding 950 770 Other: # Voids 4 2 # Bowel Movements 1 Stool Characteristics Soft Soft Formed Formed Weight Source Bedscale Estimated Active Medications: Current Medications Acetaminophen (Tylenol Extra Strength) 500 mg GT Q4H PRN PRN Reason: Pain (Moderate) Stop: 12/18/17 22:19 Last Admin: 10/22/17 17:35 Dose: 500 mg Allopurinol (Zyloprim) 300 mg GT DAILY [facility] Stop: 12/19/17 08:59 Last Admin: 10/23/17 09:58 Dose: 300 mg Ascorbic Acid (Vitamin C) 500 mg GT DAILY [facility] Stop: 12/19/17 08:59 Last Admin: 10/23/17 09:58 Dose: 500 mg Aspirin (Ecotrin) 81 mg PO DAILY [facility] Stop: 12/19/17 08:59 Last Admin: 10/23/17 09:59 Dose: 81 mg Bisacodyl (Dulcolax 10 Mg Supp) 10 mg RC DAILY PRN PRN Reason: Constipation Stop: 12/18/17 22:19 Docusate Sodium (Colace) 100 mg PO DAILY [facility] Stop: 12/19/17 08:59 Last Admin: 10/23/17 09:59 Dose: 100 mg Fluconazole (Diflucan) 100 mg PO DAILY [facility] Stop: 12/19/17 13:59 Last Admin: 10/23/17 09:59 Dose: 100 mg Sodium Chloride (Nacl 0.45%) 1,000 mls @ 75 mls/hr IV .[id number] [facility] Stop: 12/20/17 15:14 Last Admin: 10/23/17 23:33 Dose: 75 mls/hr Insulin Aspart (Novolog Insulin Sliding Scale) 0 units SUBQ ACHS [facility]; Protocol Stop: 12/19/17 07:29 Last Admin: 10/24/17 06:50 Dose: Not Given Insulin Detemir (Levemir Insulin) 10 units SUBQ [facility]; Protocol Stop: 12/19/17 20:59 Last Admin: 10/23/17 22:12 Dose: 10 units Levetiracetam (Keppra) 1,000 mg GT Q12H [facility] Stop: 12/19/17 00:00 Last Admin: 10/23/17 23:33 Dose: 1,000 mg Levothyroxine Sodium (Synthroid) 0.05 mg GT DAILY [facility] Stop: 12/19/17 08:59 Last Admin: 10/23/17 09:59 Dose: 0.05 mg Magnesium Hydroxide (Milk Of Magnesia) 30 ml GT HS PRN PRN Reason: Constipation Stop: 12/18/17 22:19 Mupirocin (Bactroban Oint) 1 appl NS BID [facility] Stop: 10/27/17 09:01 Last Admin: 10/23/17 17:53 Dose: 1 appl Ondansetron HCl (Zofran Odt) 4 mg PO Q6H PRN PRN Reason: Nausea / Vomiting Stop: 12/18/17 22:19 Pantoprazole Sodium (Protonix) 40 mg GT DAILY [facility] Stop: 12/19/17 08:59 Last Admin: 10/23/17 09:59 Dose: 40 mg Sodium Phosphate (Fleet Enema) 135 ml RC Q2D PRN PRN Reason: Constipation Stop: 12/18/17 22:19 Valproate Sodium (Depakene) 500 mg GT Q6HR [facility] Stop: 12/18/17 00:00 Last Admin: 10/24/17 05:15 Dose: 500 mg Zinc Sulfate (Zinc Sulfate) 220 mg GT DAILY [facility] Stop: 12/19/17 08:59 Last Admin: 10/23/17 09:59 Dose: 220 mg General: No acute distress HEENT: Atraumatic, Mucous membr. 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 [id number] 07/21/17 CHANGE GASTROSTOMY TUBE 29509 07/21/17 EXCISION OF DUODENUM, ENDO, DIAGN [id number] 03/25/16 EXCISION OF ESOPHAGOGASTRIC JUNCTION, ENDO, DIAGN [id number] 09/13/17 EXCISION OF SIGMOID COLON, ENDO, DIAGN [id number] 09/13/17 EXCISION OF STOMACH, ENDO, DIAGN [id number] 09/13/17 EXCISION OF STOMACH, PYLORUS, ENDO, DIAGN [id number] 03/25/16 EXCISION OF TRANSVERSE COLON, ENDO, DIAGN [id number] 03/25/16 EXTIRPATION OF MATTER FROM COMMON BILE DUCT, ENDO [id number] 01/28/16 FLUOROSCOPY OF BILE DUCTS USING LOW OSMOLAR CONTRAST [id number] 01/28/16 REMOVAL OF INTRALUMINAL DEVICE FROM HEPATOBILIARY DUCT, ENDO [id number] 01/28/16 TRANSFUSE NONAUT RED BLOOD CELLS IN PERIPH VEIN, PERC [id number] 09/13/17 Nutritional Asmnt/Malnutr-PDOC - Dietary Evaluation Malnutrition Findings (Please click <Entered> for more info): Nutritional Asmnt/Malnutrition Start: 10/20/17 13: 26 Text: Status: Complete Freq: Protocol: Document 10/20/17 13:26 LCRANDY (Rec: 10/20/17 13:33 [facility]-[email or web address]) Nutritional Asmnt/Malnutrition Patient General Information Nutritional Screening High Risk Consult Diagnosis hypernatremia, dehydration Pertinent Medical Hx/Surgical Hx HTN, DM, asthma/COPD, DVT/PE, dyslipidemia, trach Subjective Information Consult received for high glucose. Pt seen resting in bed at time of visit. Verified TF running at 70ml at this time. So far pt tolerated well per nurse. Current Diet Order/ Nutrition Support glucerna 1.2 70ml x 20hr Pertinent Medications vit C, colace, novolog, levemir, synthroid, protonix, nacl 0.45%, zinc Pertinent Labs 10/20 Na 147, K 4.6, Cl 114, BUN 106 (trending down), Cr 1. 7 (trending down), glucose 408 , POC 234-393 10/19 Na 151, K 4.4, Cl 114, BUN 120, Cr 1.9, glucose 337, A1c 7.7, POC 235-248 Nutritional Hx/Data Height 1.68 m Height (Calculated Centimeters) 167.6 Current Weight (lbs) 76.204 kg Weight (Calculated Kilograms) 76.2 Weight (Calculated Grams) 95700.5 [place] Body Weight 142 Body Mass Index (BMI) 27.1 Weight Status Overweight GI Symptoms GI Symptoms None Last BM not indicated Difficult in: None Skin Integrity/Comment: abrasion to left shoulder, lower scrotum, sacrum, right heel Estimated Nutritional Goals Calories/Kcals/Kg 23-27 based on IBW 62kg Kcals Calculated 1780-1758 Protein g/k monitor renal labs Protein Calculated 62 Fluid: ml per MD Nutritional Problem 1. Problem Problem altered nutrition relatedl abs Etiology renal dysfunction Signs/Symptoms: BUN 106, Cr 1.7 Malnutrition Alert Is there a minimum of two criteria No selected? Query Text:Check all the applicable criteria. A minimum of two criteria are recommended for diagnosis of either severe or non-severe malnutrition. Malnutrition Related to Morbid Obesity Malnutrition related to morbid obesity No Intervention/Recommendation Comments 1. Continue with current TF regimen. It provides 1680kcal, 84g protein, 1145ml free water, meeting 100% of nutritional needs. If BUN/Cr continue high, will recommend decrease TF rate or switch to [place] for lower protein needs. 2. Monitor TF rate, tolerance, wt, skin integrity and labs 3. F/U as high risk in 2-3 days, 10/22-10/23 Expected Outcomes/Goals Expected Outcomes/Goals 1. Pt to meet at least 75% of nutritional needs via nutrition support with tolerance 2. Wt stability, skin to remain intact, labs to approach WNL.
[2017-10-24] MEDS: Pantoprazole 40 mg/Packet GT SCH (08:34)
[2017-10-24] MEDS: Multivitamin w/ Minerals Tab GT SCH (08:34)
[2017-10-24] MEDS: Levothyroxine 0.05 Mg Tab GT SCH (08:34)
[2017-10-24] MEDS: Sodium Chloride 0.45% 1,000 ML IV SCH (10:49)
[2017-10-24] MEDS: Levetiracetam 500 mg/5mL 5mL UDSyr *for ORAL USE ONLY GT SCH (11:58)
--- NOTE | 2017-10-24 12:26 | General Progress Note ---
Subjective - Review of Systems Service Date: 10/24/17 Subjective: awake, nonverbal,, comfortable Objective - Results Result Diagrams: 10/21/17 06:10 10/24/17 05:25 Recent Labs: Laboratory Last Values WBC 7.0 Th/cmm (4.8-10.8) 10/21/17 06:10 RBC 3.37 Mil/cmm (3.80-5.80) L 10/21/17 06:10 Hgb 11.6 gm/dL (12-16) L 10/21/17 06:10 Hct 35.5 % (41.0-60) L 10/21/17 06:10 MCV 105.4 fl (80-99) H 10/21/17 06:10 MCH 34.6 pg (27.0-31.0) H 10/21/17 06:10 MCHC Differential 32.8 pg (28.0-36.0) 10/21/17 06:10 RDW 22.5 % (11.5-20.0) H 10/21/17 06:10 Plt Count 116 Th/cmm (150-400) L 10/21/17 06:10 MPV 10.0 fl 10/21/17 06:10 Neutrophils % 46.4 % (40.0-80.0) 10/21/17 06:10 Lymphocytes % 40.1 % (20.0-50.0) 10/21/17 06:10 Monocytes % 6.8 % (2.0-10.0) 10/21/17 06:10 Eosinophils % 6.5 % (0.0-5.0) H 10/21/17 06:10 Basophils % 0.2 % (0.0-2.0) 10/21/17 06:10 PT 10.3 SECONDS (9.5-11.5) 10/19/17 11:45 INR 0.99 (0.5-1.4) 10/19/17 11:45 PTT (Actin FS) 21.4 SECONDS (26.0-38.0) L 10/19/17 11:45 Sodium 141 mEq/L (136-145) 10/24/17 05:25 Potassium 5.0 mEq/L (3.5-5.1) 10/24/17 05:25 Chloride 113 mEq/L (98-107) H 10/24/17 05:25 Carbon Dioxide 21.3 mEq/L (21.0-31.0) 10/24/17 05:25 Anion Gap 11.7 (7.0-16.0) 10/24/17 05:25 BUN 58 mg/dL (7-25) H 10/24/17 05:25 Creatinine 1.5 mg/dL (0.7-1.3) H 10/24/17 05:25 Est GFR ( Amer) TNP 10/24/17 05:25 Est GFR (Non-Af Amer) TNP 10/24/17 05:25 BUN/Creatinine Ratio 38.7 10/24/17 05:25 Glucose 205 mg/dL (70-105) H D 10/24/17 05:25 POC Glucose 194 MG/DL (70 - 105) H 10/24/17 11:43 Hemoglobin A1c % 7.7 % (4.0-6.0) H 10/19/17 11:45 Whole Bld Lactic Acid 1.36 mmol/L (0.60-1.99) 10/19/17 13:30 Uric Acid 5.5 mg/dL (4.4-7.6) 10/21/17 06:10 Calcium 8.2 mg/dL (8.6-10.3) L 10/24/17 05:25 Phosphorus 3.8 mg/dL (2.5-5.0) 10/21/17 06:10 Magnesium 2.9 mg/dL (1.9-2.7) H 10/21/17 06:10 Total Bilirubin 0.3 mg/dL (0.3-1.0) 10/20/17 06:27 AST 23 U/L (13-39) 10/20/17 06:27 ALT 10 U/L (7-52) 10/20/17 06:27 Alkaline Phosphatase 66 U/L (34-104) 10/20/17 06:27 Creatine Kinase 25 U/L (30-223) L 10/19/17 11:45 Troponin I 0.03 ng/mL (0.01-0.05) 10/19/17 11:45 Total Protein 7.2 gm/dL (6.0-8.3) 10/20/17 06:27 Albumin 2.7 gm/dL (4.2-5.5) L 10/20/17 06:27 Globulin 4.5 gm/dL 10/20/17 06:27 Albumin/Globulin Ratio 0.6 (1.0-1.8) L 10/20/17 06:27 Triglycerides 536 mg/dL (<150) H 10/20/17 06:27 Cholesterol 110 mg/dL (<200) 10/20/17 06:27 LDL Cholesterol Direct 54 mg/dL (75-193) L 10/20/17 06:27 HDL Cholesterol 25 mg/dL (23-92) 10/20/17 06:27 Amylase 27 U/L (29-103) L 10/19/17 11:45 Lipase 48 U/L (11-82) 10/19/17 11:45 TSH 5.73 uIU/ml (0.34-5.60) H 10/21/17 06:10 - Physical Exam Vitals and I&O: Vital Signs Temp 97.0 F 10/24/17 12:03 Pulse 92 10/24/17 12:10 Resp 20 10/24/17 12:10 BP 126/70 10/24/17 12:03 Pulse Ox 96 10/24/17 12:10 Intake & Output 10/23/17 10/24/17 10/24/17 18:59 06:59 18:59 Intake Total 950 1023.75 845 Balance 950 1023.75 845 Weight (lbs) 76.204 kg 90.718 kg Intake: Intake, IV Amount 253.75 845 Sodium Chloride 0.45% 1, 253.75 845 000 ml @ 75 mls/hr IV . [id number] [facility] Rx#:[id number] Tube Feeding 950 770 Other: # Voids 4 2 # Bowel Movements 1 Stool Characteristics Liquid Soft Brown Formed Weight Source Bedscale Estimated Active Medications: Current Medications Acetaminophen (Tylenol Extra Strength) 500 mg GT Q4H PRN PRN Reason: Pain (Moderate) Stop: 12/18/17 22:19 Last Admin: 10/22/17 17:35 Dose: 500 mg Allopurinol (Zyloprim) 300 mg GT DAILY [facility] Stop: 12/19/17 08:59 Last Admin: 10/24/17 08:33 Dose: 300 mg Ascorbic Acid (Vitamin C) 500 mg GT DAILY [facility] Stop: 12/19/17 08:59 Last Admin: 10/24/17 08:33 Dose: 500 mg Aspirin (Ecotrin) 81 mg PO DAILY [facility] Stop: 12/19/17 08:59 Last Admin: 10/24/17 08:33 Dose: 81 mg Bisacodyl (Dulcolax 10 Mg Supp) 10 mg RC DAILY PRN PRN Reason: Constipation Stop: 12/18/17 22:19 Docusate Sodium (Colace) 100 mg PO DAILY [facility] Stop: 12/19/17 08:59 Last Admin: 10/24/17 08:33 Dose: 100 mg Fluconazole (Diflucan) 100 mg PO DAILY [facility] Stop: 12/19/17 13:59 Last Admin: 10/24/17 08:33 Dose: 100 mg Sodium Chloride (Nacl 0.45%) 1,000 mls @ 75 mls/hr IV .[id number] [facility] Stop: 12/20/17 15:14 Last Admin: 10/24/17 10:49 Dose: 75 mls/hr Insulin Aspart (Novolog Insulin Sliding Scale) 0 units SUBQ ACHS [facility]; Protocol Stop: 12/19/17 07:29 Last Admin: 10/24/17 11:55 Dose: 3 units Insulin Detemir (Levemir Insulin) 10 units SUBQ HS [facility]; Protocol Stop: 12/19/17 20:59 Last Admin: 10/23/17 22:12 Dose: 10 units Levetiracetam (Keppra) 1,000 mg GT Q12H [facility] Stop: 12/19/17 00:00 Last Admin: 10/24/17 11:58 Dose: 1,000 mg Levothyroxine Sodium (Synthroid) 0.05 mg GT DAILY [facility] Stop: 12/19/17 08:59 Last Admin: 10/24/17 08:34 Dose: 0.05 mg Magnesium Hydroxide (Milk Of Magnesia) 30 ml GT HS PRN PRN Reason: Constipation Stop: 12/18/17 22:19 Mupirocin (Bactroban Oint) 1 appl NS BID [facility] Stop: 10/27/17 09:01 Last Admin: 10/24/17 08:33 Dose: 1 appl Ondansetron HCl (Zofran Odt) 4 mg PO Q6H PRN PRN Reason: Nausea / Vomiting Stop: 12/18/17 22:19 Pantoprazole Sodium (Protonix) 40 mg GT DAILY [facility] Stop: 12/19/17 08:59 Last Admin: 10/24/17 08:34 Dose: 40 mg Sodium Phosphate (Fleet Enema) 135 ml RC Q2D PRN PRN Reason: Constipation Stop: 12/18/17 22:19 Valproate Sodium (Depakene) 500 mg GT Q6HR [facility] Stop: 12/18/17 00:00 Last Admin: 10/24/17 11:58 Dose: 500 mg Zinc Sulfate (Zinc Sulfate) 220 mg GT DAILY [facility] Stop: 12/19/17 08:59 Last Admin: 10/24/17 08:34 Dose: 220 mg General: Alert, No acute distress HEENT: Atraumatic, Mucous membr. 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 [id number] 07/21/17 CHANGE GASTROSTOMY TUBE 54269 07/21/17 EXCISION OF DUODENUM, ENDO, DIAGN [id number] 03/25/16 EXCISION OF ESOPHAGOGASTRIC JUNCTION, ENDO, DIAGN [id number] 09/13/17 EXCISION OF SIGMOID COLON, ENDO, DIAGN [id number] 09/13/17 EXCISION OF STOMACH, ENDO, DIAGN [id number] 09/13/17 EXCISION OF STOMACH, PYLORUS, ENDO, DIAGN [id number] 03/25/16 EXCISION OF TRANSVERSE COLON, ENDO, DIAGN [id number] 03/25/16 EXTIRPATION OF MATTER FROM COMMON BILE DUCT, ENDO [id number] 01/28/16 FLUOROSCOPY OF BILE DUCTS USING LOW OSMOLAR CONTRAST [id number] 01/28/16 REMOVAL OF INTRALUMINAL DEVICE FROM HEPATOBILIARY DUCT, ENDO [id number] 01/28/16 TRANSFUSE NONAUT RED BLOOD CELLS IN PERIPH VEIN, PERC 54746C2 09/13/17 Assessment/Plan - Assessment Assessment: BAN on CKD Ess Htn Severe Malnutrition T2DM w/ CKD CAD S/P CVA COPD Hypernatremia - Plan Plan: Lab - Result Diagrams 10/21/17 06:10 06/14/18 06:10 Current Medications Acetaminophen (Tylenol Extra Strength) 500 mg GT Q4H PRN PRN Reason: Pain (Moderate) Stop: 12/18/17 22:19 Allopurinol (Zyloprim) 300 mg GT DAILY [facility] Stop: 12/19/17 08:59 Last Admin: 10/21/17 10:52 Dose: 300 mg Ascorbic Acid (Vitamin C) 500 mg GT DAILY [facility] Stop: 12/19/17 08:59 Last Admin: 10/21/17 10:52 Dose: 500 mg Aspirin (Ecotrin) 81 mg PO DAILY [facility] Stop: 12/19/17 08:59 Last Admin: 10/21/17 10:51 Dose: 81 mg Bisacodyl (Dulcolax 10 Mg Supp) 10 mg RC DAILY PRN PRN Reason: Constipation Stop: 12/18/17 22:19 Docusate Sodium (Colace) 100 mg PO DAILY [facility] Stop: 12/19/17 08:59 Last Admin: 10/21/17 10:52 Dose: 100 mg Fluconazole (Diflucan) 100 mg PO DAILY [facility] Stop: 12/19/17 13:59 Last Admin: 10/21/17 10:52 Dose: 100 mg Sodium Chloride (Nacl 0.45%) 1,000 mls @ 100 mls/hr IV .Q10H [facility] Stop: 12/19/17 13:44 Last Admin: 10/21/17 05:51 Dose: 100 mls/hr Insulin Aspart (Novolog Insulin Sliding Scale) 0 units SUBQ ACHS [facility]; Protocol Stop: 12/19/17 07:29 Last Admin: 10/21/17 12:23 Dose: Not Given Insulin Detemir (Levemir Insulin) 10 units SUBQ HS [facility]; Protocol Stop: 12/19/17 20:59 Last Admin: 10/20/17 22:00 Dose: 10 units Levetiracetam (Keppra) 1,000 mg GT Q12H [facility] Stop: 12/19/17 00:00 Last Admin: 10/21/17 12:35 Dose: 1,000 mg Levothyroxine Sodium (Synthroid) 0.05 mg GT DAILY [facility] Stop: 12/19/17 08:59 Last Admin: 10/21/17 10:51 Dose: 0.05 mg Magnesium Hydroxide (Milk Of Magnesia) 30 ml GT HS PRN PRN Reason: Constipation Stop: 12/18/17 22:19 Miscellaneous (Darbepoetin Maksim In [place]ysorbat [Aranesp]) 25 mcg SUBQ QWED [facility] Stop: 12/18/17 22:29 Ondansetron HCl (Zofran Odt) 4 mg PO Q6H PRN PRN Reason: Nausea / Vomiting Stop: 12/18/17 22:19 Pantoprazole Sodium (Protonix) 40 mg GT DAILY [facility] Stop: 12/19/17 08:59 Last Admin: 10/21/17 10:51 Dose: 40 mg Sodium Phosphate (Fleet Enema) 135 ml RC Q2D PRN PRN Reason: Constipation Stop: 12/18/17 22:19 Valproate Sodium (Depakene) 500 mg GT Q6HR [facility] Stop: 12/18/17 00:00 Last Admin: 10/21/17 13:33 Dose: 500 mg Zinc Sulfate (Zinc Sulfate) 220 mg GT DAILY [facility] Stop: 12/19/17 08:59 Last Admin: 10/21/17 10:51 Dose: 220 mg Lab - Result Diagrams 10/21/17 06:10 10/24/17 05:25 Na down to 141 kidney fnc better @ 58/1.5 switch to 05/11 NS f/u electrolytes Nutritional Asmnt/Malnutr-PDOC - Dietary Evaluation Malnutrition Findings (Please click <Entered> for more info): Nutritional Asmnt/Malnutrition Start: 10/20/17 13: 26 Text: Status: Complete Freq: Protocol: Document 10/20/17 13:26 LCHENG (Rec: 10/20/17 13:33 LCHENG [email or web address]) Nutritional Asmnt/Malnutrition Patient General Information Nutritional Screening High Risk Consult Diagnosis hypernatremia, dehydration Pertinent Medical Hx/Surgical Hx HTN, DM, asthma/COPD, DVT/PE, dyslipidemia, trach Subjective Information Consult received for high glucose. Pt seen resting in bed at time of visit. Verified TF running at 70ml at this time. So far pt tolerated well per nurse. Current Diet Order/ Nutrition Support glucerna 1.2 70ml x 20hr Pertinent Medications vit C, colace, novolog, levemir, synthroid, protonix, nacl 0.45%, zinc Pertinent Labs 10/20 Na 147, K 4.6, Cl 114, BUN 106 (trending down), Cr 1. 7 (trending down), glucose 408 , POC 234-393 10/19 Na 151, K 4.4, Cl 114, BUN 120, Cr 1.9, glucose 337, A1c 7.7, POC 235-248 Nutritional Hx/Data Height 1.68 m Height (Calculated Centimeters) 167.6 Current Weight (lbs) 76.204 kg Weight (Calculated Kilograms) 76.2 Weight (Calculated Grams) 92258.5 [place] Body Weight 142 Body Mass Index (BMI) 27.1 Weight Status Overweight GI Symptoms GI Symptoms None Last BM not indicated Difficult in: None Skin Integrity/Comment: abrasion to left shoulder, lower scrotum, sacrum, right heel Estimated Nutritional Goals Calories/Kcals/Kg 23-27 based on IBW 62kg Kcals Calculated 6575-6317 Protein g/k monitor renal labs Protein Calculated 62 Fluid: ml per MD Nutritional Problem 1. Problem Problem altered nutrition relatedl abs Etiology renal dysfunction Signs/Symptoms: BUN 106, Cr 1.7 Malnutrition Alert Is there a minimum of two criteria No selected? Query Text:Check all the applicable criteria. A minimum of two criteria are recommended for diagnosis of either severe or non-severe malnutrition. Malnutrition Related to Morbid Obesity Malnutrition related to morbid obesity No Intervention/Recommendation Comments 1. Continue with current TF regimen. It provides 1680kcal, 84g protein, 1145ml free water, meeting 100% of nutritional needs. If BUN/Cr continue high, will recommend decrease TF rate or switch to [place] for lower protein needs. 2. Monitor TF rate, tolerance, wt, skin integrity and labs 3. F/U as high risk in 2-3 days, 10/22-10/23 Expected Outcomes/Goals Expected Outcomes/Goals 1. Pt to meet at least 75% of nutritional needs via nutrition support with tolerance 2. Wt stability, skin to remain intact, labs to approach WNL.
[2017-10-24] MEDS ORDERED: Sodium Chloride 0.45% 1,000 ML IV SCH (12:30)
[2017-10-24 16:44] LABS: URINE MICROSCOPIC INDICATED? YES; URINE SOURCE MIDSTREAM
[2017-10-24 16:55] LABS: URINE BILIRUBIN NEGATIVE (NEGATIVE); URINE BLOOD SMALL (NEGATIVE); URINE GLUCOSE (UA) NEGATIVE (NEGATIVE); URINE KETONE NEGATIVE (NEGATIVE); URINE LEUKOCYTE ESTERASE SMALL (NEGATIVE); URINE NITRATE NEGATIVE (NEGATIVE); URINE PH 5.5 (4.6 - 8.0); URINE PROTEIN 30 mg/dL (NEGATIVE); URINE UROBILINOGEN 0.2 E.U./dL (0.2 - 1.0)
[2017-10-24 17:02] LABS: URINE CLARITY HAZY (CLEAR); URINE COLOR YELLOW
[2017-10-24 17:04] LABS: URINE BACTERIA NONE SEEN /hpf (NONE SEEN); URINE EPITHELIAL CELLS FEW /lpf (FEW)
[2017-10-24 17:05] LABS: URINE YEAST FEW /hpf (NONE SEEN)
[2017-10-24 19:02] LABS: EOSINOPHIL SMEAR SOURCE URINE; EOSINOPHILS SMEAR COUNT NONE SEEN (NONE SEEN)
[2017-10-24] MEDS: Insulin Detemir 100 units/mL 10mL Vial SUBQ SCH (20:22)
[2017-10-26 11:25] LABS: CREATININEURINE 30.7 mg/dl
[2017-10-26 11:26] LABS: MICROALBUMIN RANDOM RUINE 257.1
== END 2017-10-24 21:10 | DRG 871 ==
LOC: ER 11:08 → MSI 17:42
PROVIDERS: ADMIT Internal Medicine; ATTEND Internal Medicine
DX: A41.9 Sepsis, unspecified organism (principal); E43 Unspecified severe protein-calorie malnutrition; G93.41 Metabolic encephalopathy; N39.0 Urinary tract infection, site not specified; N17.9 Acute kidney failure, unspecified; E87.0 Hyperosmolality and hypernatremia; E86.0 Dehydration; E11.65 Type 2 diabetes mellitus with hyperglycemia; Z93.1 Gastrostomy status; E78.5 Hyperlipidemia, unspecified; F17.210 Nicotine dependence, cigarettes, uncomplicated; Z93.0 Tracheostomy status; D64.9 Anemia, unspecified; I12.9 Hypertensive chronic kidney disease with stage 1 through stage 4 chronic kidney disease, or unspecified chronic kidney disease; E11.22 Type 2 diabetes mellitus with diabetic chronic kidney disease; G30.9 Alzheimer's disease, unspecified; F02.80 Dementia in other diseases classified elsewhere, unspecified severity, without behavioral disturbance, psychotic disturbance, mood disturbance, and anxiety; I25.10 Atherosclerotic heart disease of native coronary artery without angina pectoris; K21.9 Gastro-esophageal reflux disease without esophagitis; K27.9 Peptic ulcer, site unspecified, unspecified as acute or chronic, without hemorrhage or perforation; N18.3 Chronic kidney disease, stage 3 (moderate); J45.909 Unspecified asthma, uncomplicated; Z68.32 Body mass index [BMI] 32.0-32.9, adult; R13.10 Dysphagia, unspecified; Z86.718 Personal history of other venous thrombosis and embolism; Z83.3 Family history of diabetes mellitus; Z86.73 Personal history of transient ischemic attack (TIA), and cerebral infarction without residual deficits; Z82.49 Family history of ischemic heart disease and other diseases of the circulatory system
CPT/HCPCS: 36415-UA; 76770-TC; 80048-TC; 80053-TC; 80061-TC; 81001-TC; 81015-TC; 82043-90; 82150-TC; 82550-TC; 82570-TC; 82948-90; 83036-90; 83605; 83690-TC; 83735-TC; 83930-90; 84100-TC; 84300-TC; 84443-TC; 84484-TC; 84550-TC; 85025-TC; 85610-TC; 85730-TC; 93005; 94760; J0696; J1815; J7030; Z7610